=== PATIENT | female | born 1935 | race African-American/Black ===

== ENCOUNTER 2017-01-14 19:59 | Inpatient (IN) ==
[2017-01-14] MEDS ORDERED: Naloxone 0.4 MG/ML INJ IVP PRN (23:30)
--- NOTE | 2017-01-14 23:35 | Internal Med History&Physical ---
Date of Encounter: 01/14/17 Time of Encounter: 23:35 Assessment and Plan (1) Upper GI bleeding Current visit: Yes Status: Acute Suspect PUD / gastritis / esophagitis. WIll treat with IV pantoprazole. Surgical consult for possible EGD and intervention. (2) Acute blood loss anemia Current visit: Yes Status: Acute Due to Upper GI bleed. 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 Monitor H& H. (3) Diabetes Current visit: Yes Status: Chronic Sliding scale insulin Qualifiers: Diabetes mellitus type: type 2 Diabetes mellitus complication status: with kidney complications Diabetes mellitus complication detail: with chronic kidney disease Diabetes mellitus shelter insulin use: without shelter use Chronic kidney disease stage: stage 3 (moderate) Qualified Code(s): E11.22 - Type 2 diabetes mellitus with diabetic chronic kidney disease; N18.3 - Chronic kidney disease, stage 3 (moderate) (4) Hypertension Current visit: Yes Status: Chronic Continue home medications Qualifiers: Hypertension type: essential hypertension Qualified Code(s): I10 - Essential (primary) hypertension (5) Chronic kidney disease Current visit: Yes Status: Chronic Monitor renal function. Avoid nephrotoxics Qualifiers: Chronic kidney disease stage: stage 3 (moderate) Qualified Code(s): N18.3 - Chronic kidney disease, stage 3 (moderate) Internal Medicine - H&P: HPI Chief complaint: Vomiting coffee grounds; black stool Admitted From: Emergency Dept Plans for Post Hospital Care: Home History of present illness: Ms. Be is a 81 year old female With h/o diabetes, GERD, glaucoma, hyperlipidemia, hypertension, dementia, CKD, (? hiatus hernia) presented to the ER at [facility] with h/o coffee ground / dark emesis for a day. She also has black stool. She denies abdominal pain, chest pain, shortness of breath, fever, chills, dysuria, hematuria. She was evaluated in the emergency department and was noted to have hemoglobin of 9.6 (previous Hgb: 12.2 in November 2016); has elevated BUN. Pt apparently has prior h/o of GI bleed and Dr Pineda performed colonoscopy. ER physician discussed with surgeon Dr Cooper, who recommended admission to the hospitalist service. Past Med Surg Social Fam HX - Past Medical History Medical history: arthritis, diabetes, GERD, glaucoma, hyperlipidemia, hypertension, osteoporosis, renal disease Psychiatric history: no psych history - Past Surgical History Surgical History: cholecystectomy, knee replacement, orthopedic, other - Social History Smoking Status: Never smoker Smokeless Tobacco Status: No Alcohol use: none Drug use: none - Family History Daughter Adopted: No Living Status: Still Living Hx Family Cardiac Disorders: No Hx Family Respiratory Disorders: No Hx Family Cancer: No Hx Family GI Disorders: No Hx Family Endocrine Disorder: Yes (History of diet controlled diabetes after gastric bypass surgery) Hx Family Neuromuscular Disorders: No Hx Family Neurologic Disorders: No Hx Family HEENT Disorders: No Hx Family Autoimmune Disorders: No Internal Medicine - H&P: Meds Sertraline [Zoloft] 25 mg PO DAILY 05/24/15 [History] LORazepam [Ativan] 0.5 mg PO QID 12/21/15 [History] Oxybutynin [Ditropan] 5 mg PO HS 12/21/15 [History] Cholecalciferol (D-3) [Vitamin D] 50,000 unit PO QWEEK 02/25/16 [History] Latanoprost [Xalatan] 1 drop BOTH EYES HS 02/25/16 [History] Metolazone [Zaroxolyn] 5 mg PO DAILY 02/25/16 [History] Pregabalin [Lyrica] 75 mg PO BID capsule 02/25/16 [Rx] Albuterol Sulfate [Proair Respiclick] 90 mcg IH Q4H PRN 05/16/16 [History] Pantoprazole Sodium [Protonix] 40 mg PO DAILY 05/16/16 [History] Rosuvastatin Calcium [Crestor] 10 mg PO DAILY 05/16/16 [History] Ferrous Sulfate [Iron] 325 mg PO BID 07/27/16 [History] Ipratropium/Albuterol Neb [Duoneb] 3 ml IH Q6HR 07/27/16 [History] Meclizine [Antivert] 25 mg PO DAILY 07/27/16 [History] Ondansetron HCl [Zofran] 4 mg PO Q6H PRN 07/27/16 [History] Insulin Glargine,Hum.rec.anlog [Lantus Solostar] 5 unit SQ DAILY 01/14/17 [ History] Loratadine [Allergy Relief] 10 mg PO DAILY 01/14/17 [History] OxyCODONE Immed Rel [Roxicodone 5 MG] 5 mg PO Q4HR PRN 01/14/17 [History] Sennosides/Docusate Sodium [Senna-Docusate Sodium Tablet] 2 each PO DAILY PRN [History] Allergies azithromycin [From Zithromax] Allergy (Verified 12/04/16 15:18) Hives Erythromycin Base Allergy (Verified 12/04/16 15:18) Hives levofloxacin Allergy (Verified 12/04/16 15:18) See Comments UNKNOWN sulfamethoxazole [From Bactrim] Allergy (Verified 12/04/16 15:18) Hives trazodone Allergy (Verified 12/04/16 15:18) Hives trimethoprim [From Bactrim] Allergy (Verified 12/04/16 15:18) Hives tuberculin,PPD,multi-puncture Allergy (Verified 12/02/16 20:20) See Comments Pneumococcal Vaccine Adverse Reaction (Verified 12/02/16 20:20) Hallucinating All Systems PM: A 10-system review of systems was performed and is negative for pertinent findings except as documented above in the HPI. - Constitutional Vitals: Temperature 98.5, pulse 85, respirations 18, BP 151/70, pulse ox 95% on room air Exam: General: Not in acute distress at the time of my evaluation HEENT: Oral mucosa is moist. conjunctival palor present. Neck: No obvious neck swellings Lungs: Clear to auscultation Cardiac: Regular rate and rhythm. No significant murmurs Abdomen: Soft, non tender. Bowel sounds present Genitourinary: No martinez catheter Neurological: Alert. No gross localizing deficits Psych: Not aggressive or agitated Extremities: Mild leg edema Skin: No generalized rash Internal Med - H&P Results - Labs CBC & Chem 7: 01/15/17 06:30 01/15/17 06:30
[2017-01-14] MEDS ORDERED: *HR* Dextrose 50 % in Water (Syg) 50 ML SYRINGE IVP PRN (23:36)
[2017-01-14] MEDS ORDERED: Dextrose Gel 15 GM PO PRN ×2 (23:36)
[2017-01-14] MEDS ORDERED: D5% in Water 1,000 ML IVC PRN (23:36)
[2017-01-15 00:18] LABS: Hematocrit 27.6 % (35.3-44.9)
[2017-01-15] MEDS: 0.9 % Sodium Chloride 1,000 ML IVC SCH ×2 (00:32→21:07)
[2017-01-15] MEDS: Pantoprazole 40 MG VIAL IVP SCH ×3 (00:32→17:12)
[2017-01-15] MEDS ORDERED: Insulin LISPRO 300 UNITS/3 ML VIAL SQ ONE (01:34)
[2017-01-15 07:30] LABS: Hematocrit 25.6 % (35.3-44.9); Hemoglobin 8.1 g/dL (11.5-15.4); Mean Corpuscular HGB Conc 31.6 g/dL (31.6-35.5); Mean Corpuscular Hemoglobin 30.7 pg (28.0-33.3); Mean Platelet Volume 11.5 fL (9.4-12.4); Platelet Count 175 K/mcL (140-400); Red Blood Count 2.64 M/mcL (3.82-4.97); Red Cell Distribution Width 14.5 % (11.5-14.5)
[2017-01-15 07:36] LABS: Calcium 8.2 mg/dL (8.6-10.8); Magnesium 1.2 mg/dL (1.6-2.6); Potassium 3.9 mEq/L (3.5-4.5)
--- NOTE | 2017-01-15 07:45 | General Surgery Consult Note ---
Date of Encounter: 01/15/17 Time of Encounter: 07:20 Assessment and Plan (1) Upper GI bleeding Current Visit: Yes Status: Acute We will plan diagnostic and possibly therapeutic upper endoscopy later today. Keep nothing by mouth. History of Present Illness Consult date: 01/15/17 Reason for consult: other (Upper GI bleeding) History of present illness: The patient is admitted to the hospital after coffee ground emesis and evidence of acute onset anemia. She has previously had colonoscopy which was essentially negative at the end of last year. She denies abdominal pain. She denies chronic vomiting. She denies weight loss. She now presents for evaluation of upper GI bleeding with upper endoscopy. She denies shakes chills or fever Past Med Surg Social Fam HX - Past Medical History Medical history: arthritis, diabetes, GERD, glaucoma, hyperlipidemia, hypertension, osteoporosis, renal disease Psychiatric history: no psych history - Past Surgical History Surgical History: cholecystectomy, knee replacement, orthopedic, other - Social History Smoking Status: Never smoker Smokeless Tobacco Status: No Alcohol use: none Drug use: none - Family History Daughter Adopted: No Living Status: Still Living Hx Family Cardiac Disorders: No Hx Family Respiratory Disorders: No Hx Family Cancer: No Hx Family GI Disorders: No Hx Family Endocrine Disorder: Yes (History of diet controlled diabetes after gastric bypass surgery) Hx Family Neuromuscular Disorders: No Hx Family Neurologic Disorders: No Hx Family HEENT Disorders: No Hx Family Autoimmune Disorders: No Medications and Allergies Sertraline [Zoloft] 25 mg PO DAILY 05/24/15 [History] LORazepam [Ativan] 0.5 mg PO QID 12/21/15 [History] Oxybutynin [Ditropan] 5 mg PO HS 12/21/15 [History] Cholecalciferol (D-3) [Vitamin D] 50,000 unit PO QWEEK 02/25/16 [History] Latanoprost [Xalatan] 1 drop BOTH EYES HS 02/25/16 [History] Metolazone [Zaroxolyn] 5 mg PO DAILY 02/25/16 [History] Pregabalin [Lyrica] 75 mg PO BID capsule 02/25/16 [Rx] Albuterol Sulfate [Proair Respiclick] 90 mcg IH Q4H PRN 05/16/16 [History] Pantoprazole Sodium [Protonix] 40 mg PO DAILY 05/16/16 [History] Rosuvastatin Calcium [Crestor] 10 mg PO DAILY 05/16/16 [History] Ferrous Sulfate [Iron] 325 mg PO BID 07/27/16 [History] Ipratropium/Albuterol Neb [Duoneb] 3 ml IH Q6HR 07/27/16 [History] Meclizine [Antivert] 25 mg PO DAILY 07/27/16 [History] Ondansetron HCl [Zofran] 4 mg PO Q6H PRN 07/27/16 [History] Insulin Glargine,Hum.rec.anlog [Lantus Solostar] 5 unit SQ DAILY 01/14/17 [ History] Loratadine [Allergy Relief] 10 mg PO DAILY 01/14/17 [History] OxyCODONE Immed Rel [Roxicodone 5 MG] 5 mg PO Q4HR PRN 01/14/17 [History] Sennosides/Docusate Sodium [Senna-Docusate Sodium Tablet] 2 each PO DAILY PRN [History] Allergies azithromycin [From Zithromax] Allergy (Verified 12/04/16 15:18) Hives Erythromycin Base Allergy (Verified 12/04/16 15:18) Hives levofloxacin Allergy (Verified 12/04/16 15:18) See Comments UNKNOWN sulfamethoxazole [From Bactrim] Allergy (Verified 12/04/16 15:18) Hives trazodone Allergy (Verified 12/04/16 15:18) Hives trimethoprim [From Bactrim] Allergy (Verified 12/04/16 15:18) Hives tuberculin,PPD,multi-puncture Allergy (Verified 12/02/16 20:20) See Comments Pneumococcal Vaccine Adverse Reaction (Verified 12/02/16 20:20) Hallucinating Review of Systems All systems PM: A 10-system review of systems was performed and is negative for pertinent findings except as documented above in the HPI. General Surgery Exam Initial Vital Signs Temp Pulse Resp BP Pulse Ox 98.5 F 85 18 151/70 95 01/15/17 00:04 01/15/17 00:04 01/15/17 00:04 01/15/17 00:04 01/15/17 00:04 - General physical appearance obese - ENT Other (Loose dentures present) - Neck no masses, no bruits, trachea midline, no lymphadectomy, no venous distension - Respiratory normal expansion, normal respiratory effort, clear to percussion, clear to auscultation - Cardiovascular Cardiovascular exam: Present: RRR, no murmurs/rubs/gallops - Abdomen Abdomen general surgery: Present: bowel sounds present, soft, non tender - Neurologic Present: CN 2-12 grossly intact, normal coordination, normal sensation - Psychiatric Psychiatric general surgery: Present: appropriate, oriented to person, oriented to place, oriented to time, speech is normal, memory intact Exam Initial Vital Signs Temp Pulse Resp BP Pulse Ox 98.5 F 85 18 151/70 95 01/15/17 00:04 01/15/17 00:04 01/15/17 00:04 01/15/17 00:04 01/15/17 00:04 Results - Labs 01/15/17 06:30 01/15/17 06:30 Abnormal lab results RBC 2.64 M/mcL (3.82-4.97) L 01/15/17 06:30 Hgb 8.1 g/dL (11.5-15.4) L 01/15/17 06:30 Hct 25.6 % (35.3-44.9) L 01/15/17 06:30 BUN 72 mg/dL (7-20) H 01/15/17 06:30 Creatinine 1.56 mg/dL (0.57-1.11) H 01/15/17 06:30 Est GFR ( Amer) 39 (> 60) L 01/15/17 06:30 Est GFR (Non-Af Amer) 32 (> 60) L 01/15/17 06:30 BUN/Creatinine Ratio 46 (6-26) H 01/15/17 06:30 Glucose 329 mg/dL (70-99) H 01/15/17 06:30 POC Glucose 316 (58-89) H 01/15/17 05:38 Calculated Osmolality 320 (280-300) H 01/15/17 06:30 Calcium 8.2 mg/dL (8.6-10.8) L 01/15/17 06:30 Magnesium 1.2 mg/dL (1.6-2.6) L 01/15/17 06:30 Diabetes panel 01/15/17 Range/Units 06:30 Sodium 138 (136-145) mEq/L Potassium 3.9 (3.5-4.5) mEq/L Chloride 104 (98-109) mEq/L Carbon Dioxide 27 (19-29) mEq/L BUN 72 H (7-20) mg/dL Creatinine 1.56 H (0.57-1.11) mg/dL Glucose 329 H (70-99) mg/dL Calcium 8.2 L (8.6-10.8) mg/dL Calcium panel 01/15/17 Range/Units 06:30 Calcium 8.2 L (8.6-10.8) mg/dL Pituitary panel 01/15/17 Range/Units 06:30 Sodium 138 (136-145) mEq/L Potassium 3.9 (3.5-4.5) mEq/L Chloride 104 (98-109) mEq/L Carbon Dioxide 27 (19-29) mEq/L BUN 72 H (7-20) mg/dL Creatinine 1.56 H (0.57-1.11) mg/dL Glucose 329 H (70-99) mg/dL Calcium 8.2 L (8.6-10.8) mg/dL Adrenal panel 01/15/17 Range/Units 06:30 Sodium 138 (136-145) mEq/L Potassium 3.9 (3.5-4.5) mEq/L Chloride 104 (98-109) mEq/L Carbon Dioxide 27 (19-29) mEq/L BUN 72 H (7-20) mg/dL Creatinine 1.56 H (0.57-1.11) mg/dL Glucose 329 H (70-99) mg/dL Calcium 8.2 L (8.6-10.8) mg/dL All other labs normal. Consult Discharge Plan - Plan Referrals: Unassigned,Provider [Primary Care Provider] -
[2017-01-15 08:09] LABS: Hemoglobin A1C 7.2 %
[2017-01-15] MEDS: Insulin LISPRO 300 UNITS/3 ML VIAL SQ SCH ×3 (08:11→19:36)
[2017-01-15] MEDS ORDERED: *HR* FentaNYL (PF) 100 MCG/2 ML VIAL IVP PRN (09:20)
[2017-01-15] MEDS ORDERED: Simethicone 40 MG/0.6 ML MLS IR ONE (09:20)
--- NOTE | 2017-01-15 09:20 | Pre-Sedation Evaluation ---
Pre-sedation evaluation - Pre-sedation checklist Date of procedure: 01/15/17 Procedure: EGD Recent Vitals: Last Vital Signs Temp 97.6 F 01/15/17 07:42 Pulse 92 01/15/17 07:42 Resp 16 01/15/17 07:42 BP 119/64 01/15/17 07:42 Pulse Ox 93 01/15/17 07:42 H&P (including ROS) documented in medical record: Yes Previous reaction to sedatives/anesthetics: No Dietary Status: NPO after Midnight Airway Assessment: Patient can open mouth completely, TMJ function normal Dentition: dentures removed Possible difficult airway: No ASA Classification *see protocol: CLASS III-Severe systemic disease Plan of Care: Pt appropriate candidate for procedure/moderate/conscious sedation , Risks/benefits of procedure/sedation discussed w/ patient/family
[2017-01-15] MEDS ORDERED: *HR* Midazolam HCl 5 MG/5 ML VIAL IVP ONE (09:26)
[2017-01-15] MEDS ORDERED: *HR* FentaNYL (PF) 100 MCG/2 ML VIAL ONE (09:27)
[2017-01-15] MEDS: *HR* Midazolam HCl 5 MG/5 ML VIAL IVP PRN ×3 (10:18→10:28)
[2017-01-15] MEDS ORDERED: 0.9 % Sodium Chloride 250 ML ONE (12:47)
[2017-01-15] MEDS: Insulin DETEMIR 100 UNIT/ML X5UNITS SQ SCH (12:52)
[2017-01-15] MEDS: Magnesium Sulfate 2 GM in D5% in Water 100 ML IVPB SCH ×2 (12:54→14:27)
--- NOTE | 2017-01-15 14:30 | Discharge Summary ---
Date of Encounter: 01/15/17 Time of Encounter: 14:27 - Discharge Medications Home Medications: Sertraline [Zoloft] 25 mg PO DAILY 05/24/15 [History] LORazepam [Ativan] 0.5 mg PO QID 12/21/15 [History] Oxybutynin [Ditropan] 5 mg PO HS 12/21/15 [History] Cholecalciferol (D-3) [Vitamin D] 50,000 unit PO QWEEK 02/25/16 [History] Latanoprost [Xalatan] 1 drop BOTH EYES HS 02/25/16 [History] Metolazone [Zaroxolyn] 5 mg PO DAILY 02/25/16 [History] Albuterol Sulfate [Proair Respiclick] 2 puff IH Q4H PRN 05/16/16 [History] Pantoprazole Sodium [Protonix] 40 mg PO DAILY 05/16/16 [History] Rosuvastatin Calcium [Crestor] 10 mg PO DAILY 05/16/16 [History] Ferrous Sulfate [Iron] 325 mg PO BID 07/27/16 [History] Ipratropium/Albuterol Neb [Duoneb] 3 ml IH Q6HR 07/27/16 [History] Meclizine [Antivert] 25 mg PO DAILY 07/27/16 [History] Ondansetron HCl [Zofran] 4 mg PO Q6H PRN 07/27/16 [History] Insulin Glargine,Hum.rec.anlog [Lantus Solostar] 5 unit SQ DAILY 01/14/17 [ History] Loratadine [Allergy Relief] 10 mg PO DAILY 01/14/17 [History] OxyCODONE Immed Rel [Roxicodone 5 MG] 5 mg PO Q4HR PRN 01/14/17 [History] Sennosides/Docusate Sodium [Senna-Docusate Sodium Tablet] 2 each PO DAILY PRN [History] Allergies/Adverse Reactions: Allergies azithromycin [From Zithromax] Allergy (Verified 12/04/16 15:18) Hives Erythromycin Base Allergy (Verified 12/04/16 15:18) Hives levofloxacin Allergy (Verified 12/04/16 15:18) See Comments UNKNOWN sulfamethoxazole [From Bactrim] Allergy (Verified 12/04/16 15:18) Hives trazodone Allergy (Verified 12/04/16 15:18) Hives trimethoprim [From Bactrim] Allergy (Verified 12/04/16 15:18) Hives tuberculin,PPD,multi-puncture Allergy (Verified 12/02/16 20:20) See Comments Pneumococcal Vaccine Adverse Reaction (Verified 12/02/16 20:20) Hallucinating Date of admission: 01/15/17 02:22 Primary care physician: Provider Unassigned Consults: 01/14/17 23:33 Consult to Surgery [CONS] Routine Consulting Provider: [facility] Reason for Consult: Upper GI bleed Call Completed: No 01/15/17 11:48 Consult to Physical Therapy [CONS] Routine Comment: Evaluate, develop and implement POC Reason for Consult: Evaluate OT [Consult to Occupational Therapy] [CONS] Routine Comment: Evaluate, develop and implement POC Reason for Consult: evaluate - Discharge Instructions Follow Up With: Unassigned,Provider [Primary Care Provider] - Hospital course: Ms. Be is a 81 year old female - Time Spent with Patient Total time spent providing and/or coordinating discharge services: - Constitutional Vitals: Temp Pulse Resp BP Pulse Ox 98.1 F 89 18 128/77 94 01/15/17 10:50 01/15/17 10:50 01/15/17 10:50 01/15/17 10:50 01/15/17 11:07
--- NOTE | 2017-01-15 14:32 | Internal Med Progress Note ---
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 Chronic kidney disease stage: stage 3 (moderate) Qualified Code(s): E11.22 - Type 2 diabetes mellitus with diabetic chronic kidney disease; N18.3 - Chronic kidney disease, stage 3 (moderate) (2) Hypertension Current Visit: Yes Status: Chronic Qualifiers: Hypertension type: essential hypertension Qualified Code(s): I10 - Essential (primary) hypertension (3) Chronic kidney disease Current Visit: Yes Status: Chronic Qualifiers: Chronic kidney disease stage: stage 3 (moderate) Qualified Code(s): N18.3 - Chronic kidney disease, stage 3 (moderate) (4) Upper GI bleeding Current Visit: Yes Status: Acute - Subjective Interval history: krysten Be is an 81-year-old female presented with upper GI bleed. Dr. Cooper was consulted. He plans to do EGD today. Patient magnesium was low and it is corrected. Creatinine slightly elevated and repeat BMP tomorrow. H&H every 6. Patient is hemo-dynamically stable. - Constitutional Vitals: Temp Pulse Resp BP Pulse Ox 98.1 F 89 18 128/77 94 01/15/17 10:50 01/15/17 10:50 01/15/17 10:50 01/15/17 10:50 01/15/17 11:07 - Head Head exam: Present: atraumatic, normocephalic - Eye Eye exam: Present: PERRL, conjuntiva pink, sclera anicteric Pupils: Present: PERRL - Neck Neck exam general surgery: Present: supple, trachea midline. Absent: lymphadenopathy - Respiratory Respiratory exam: Present: CTAB. Absent: accessory muscle use, rales, rhonchi, wheezes - Cardiovascular Cardiovascular exam: Present: RRR, +S1, +S2. Absent: diastolic murmur, gallop, rubs, systolic murmur - GI/Abdominal GI/Abdominal exam: Present: normal bowel sounds, soft, no peritoneal signs. Absent: distended, tenderness - Extremities Exam Extremities exam: Present: warm, radial pulses palpable and symetrical. Absent : calf tenderness, cyanotic, pedal edema - Neurological Exam Neurological exam: Present: CN II-XII intact, oriented X3, no focal deficits. Absent: pronater drift, facial droop, speech deficit - Skin Skin exam: Present: dry, intact Internal Medicine: Result - Labs CBC & Chem 7: 01/15/17 08:42 01/15/17 06:30 Labs: Short CBC 01/15/17 01/15/17 01/15/17 Range/Units 00:07 06:30 08:42 WBC 7.0 (4.3-11.1) K/mcL Hgb 9.0 L 8.1 L 8.0 L (11.5-15.4) g/dL Hct 27.6 L 25.6 L 25.0 L (35.3-44.9) % Plt Count 175 (140-400) K/mcL [facility] 01/15/17 06:30 Sodium 138 Potassium 3.9 Chloride 104 Carbon Dioxide 27 BUN 72 H Creatinine 1.56 H Glucose 329 H Calcium 8.2 L Consult Discharge Plan - Plan Referrals: Unassigned,Provider [Primary Care Provider] -
[2017-01-16] MEDS: Insulin LISPRO 300 UNITS/3 ML VIAL SQ SCH ×5 (00:53→20:10)
[2017-01-16 01:35] LABS: Basophils % 0.4 %; Eosinophils # 0.1 K/mcL (0.0-0.6); Eosinophils % 1.9 %; Hematocrit 26.9 % (35.3-44.9); Hemoglobin 8.8 g/dL (11.5-15.4); Immature Granulocytes % 0.4 % (0-4); Lymphocytes # 1.5 K/mcL (0.6-4.6); Lymphocytes % 22.3 %; Mean Corpuscular HGB Conc 32.7 g/dL (31.6-35.5); Mean Corpuscular Hemoglobin 31.1 pg (28.0-33.3); Mean Corpuscular Volume 95.1 fL (83.0-100.0); Mean Platelet Volume 11.2 fL (9.4-12.4); Monocytes # 0.6 K/mcL (0.0-1.3); Monocytes % 9.2 %; Neutrophils # 4.4 K/mcL (1.6-8.9); Platelet Count 156 K/mcL (140-400); Red Blood Count 2.83 M/mcL (3.82-4.97); Red Cell Distribution Width 16.5 % (11.5-14.5); Segmented Neutrophils % 65.8 %
[2017-01-16 01:52] LABS: Calcium 8.4 mg/dL (8.6-10.8); Magnesium 2.3 mg/dL (1.6-2.6); Potassium 3.5 mEq/L (3.5-4.5)
[2017-01-16] MEDS: Pantoprazole 40 MG VIAL IVP SCH ×2 (06:14→18:10)
[2017-01-16 07:27] LABS: Hematocrit 25.2 % (35.3-44.9); Hemoglobin 8.6 g/dL (11.5-15.4)
[2017-01-16] MEDS: Insulin DETEMIR 100 UNIT/ML X5UNITS SQ SCH (08:32)
[2017-01-16 11:19] LABS: Bilirubin,Urine Negative (Negative); Blood,Urine Large (Negative); Clarity,Urine Cloudy (Clear); Color,Urine Yellow (Yellow); Glucose,Urine (UA) Normal (Normal); Ketones,Urine Negative (Negative); Leukocyte Esterase,Urine Large (Negative); Nitrite,Urine Positive (Negative); Protein,Urine Negative (Neg-Trace); Specific Gravity,Urine 1.017 (1.010-1.025); Urobilinogen,Urine Normal (Normal)
[2017-01-16 11:21] LABS: Bacteria,Urine Many per hpf (None-Few); Hyaline Casts,Urine None Seen per lpf (None-Few); Squamous Epithelial Cell,Urine Many per lpf (None-Few); WBC,Urine TNTC per hpf (0-3)
[2017-01-16] MEDS ORDERED: Fluconazole 40 MG/ML UDC PO SCH (12:15)
[2017-01-16] MEDS: *HR* LORazepam 0.5 MG TABLET PO SCH ×3 (12:36→20:43)
--- NOTE | 2017-01-16 14:33 | General Surgery Progress Note ---
Date of Encounter: 01/16/17 Time of Encounter: 14:29 - Assessment and Plan (1) Esophageal candidiasis Current Visit: Yes Status: Acute Diflucan added daily- first dose given today (will need to continue therapy for at least 3 weeks) Continue PPI therapy twice daily Biopsies pending Surgery will sign off at this time. Thank you for allowing us to participate in her care. Please call with any further questions or concerns Subjective Patient reports: no new complaints, feels better, tolerating liquids well, afebrile, other (Patient sitting on the edge of the bed, states that she is ready to go home) Objective Vital Signs - Last 8 Hours Temp Pulse Resp BP Pulse Ox 01/16/17 08:26 98.6 F 62 17 126/75 95 Intake and Output 01/15/17 01/16/17 01/16/17 23:59 07:59 15:59 Intake Total 1350 / 1350 342 / 342 296 / 296 Output Total 0 / 0 Balance 1350 / 1350 342 / 342 296 / 296 Intake: IV Fluids 1000 / 1000 342 / 342 176 / 176 0.9 % Sodium Chloride 1, 1000 / 1000 342 / 342 176 / 176 000 ML @ 75 mls/hr IVC . [id number] JOHANNY Rx#: [id number] Oral 0 / 0 120 / 120 Blood Product 350 / 350 Rbcs Leuko Poor As-1 350 / 350 Unit [id number] Output: Urine 0 / 0 Other: Stool Size Large Stool Consistency loose soft Stool Color Black # Urine Diapers 2 # Bowel Movement Diapers 1 Blood Glucose* 131 162 162 - General physical appearance well developed, well nourished, no distress - Eyes normal ocular movement - ENT atraumatic, normocephalic - Neck Neck exam: trachea midline - Respiratory normal respiratory effort - Psychiatric oriented to person, oriented to place, speech is normal - Labs 01/16/17 07:08 01/16/17 00:37 Diabetes panel 01/16/17 Range/Units 00:37 Sodium 140 (136-145) mEq/L Potassium 3.5 (3.5-4.5) mEq/L Chloride 107 (98-109) mEq/L Carbon Dioxide 27 (19-29) mEq/L BUN 61 H (7-20) mg/dL Creatinine 1.41 H (0.57-1.11) mg/dL Glucose 127 H (70-99) mg/dL Calcium 8.4 L (8.6-10.8) mg/dL Calcium panel 01/16/17 Range/Units 00:37 Calcium 8.4 L (8.6-10.8) mg/dL Pituitary panel 01/16/17 Range/Units 00:37 Sodium 140 (136-145) mEq/L Potassium 3.5 (3.5-4.5) mEq/L Chloride 107 (98-109) mEq/L Carbon Dioxide 27 (19-29) mEq/L BUN 61 H (7-20) mg/dL Creatinine 1.41 H (0.57-1.11) mg/dL Glucose 127 H (70-99) mg/dL Calcium 8.4 L (8.6-10.8) mg/dL Adrenal panel 01/16/17 Range/Units 00:37 Sodium 140 (136-145) mEq/L Potassium 3.5 (3.5-4.5) mEq/L Chloride 107 (98-109) mEq/L Carbon Dioxide 27 (19-29) mEq/L BUN 61 H (7-20) mg/dL Creatinine 1.41 H (0.57-1.11) mg/dL Glucose 127 H (70-99) mg/dL Calcium 8.4 L (8.6-10.8) mg/dL Consult Discharge Plan - Plan Referrals: Alvarado Dias CNP [Advanced Practice Nurse] - 01/23/17 4:15 pm (Home Visit )
--- NOTE | 2017-01-16 15:16 | Internal Med Progress Note ---
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 Chronic kidney disease stage: stage 3 (moderate) Qualified Code(s): E11.22 - Type 2 diabetes mellitus with diabetic chronic kidney disease; N18.3 - Chronic kidney disease, stage 3 (moderate) (2) Hypertension Current Visit: Yes Status: Chronic Qualifiers: Hypertension type: essential hypertension Qualified Code(s): I10 - Essential (primary) hypertension (3) Chronic kidney disease Current Visit: Yes Status: Chronic Qualifiers: Chronic kidney disease stage: stage 3 (moderate) Qualified Code(s): N18.3 - Chronic kidney disease, stage 3 (moderate) (4) Upper GI bleeding Current Visit: Yes Status: Acute - Subjective Interval history: krysten Be is an 81-year-old female presented with upper GI bleed. Dr. Cooper was consulted. He plans to do EGD today. Patient magnesium was low and it is corrected. Creatinine slightly elevated and repeat BMP tomorrow. H&H every 6. Patient is hemo-dynamically stable. - Constitutional Vitals: Temp Pulse Resp BP Pulse Ox 98.7 F 74 17 137/72 96 01/16/17 15:08 01/16/17 15:08 01/16/17 15:08 01/16/17 15:08 01/16/17 15:08 Internal Medicine: Result - Labs CBC & Chem 7: 01/16/17 07:08 01/16/17 00:37 Labs: Short CBC 01/16/17 01/16/17 Range/Units 00:37 07:08 WBC 6.7 (4.3-11.1) K/mcL Hgb 8.8 L 8.6 L (11.5-15.4) g/dL Hct 26.9 L 25.2 L (35.3-44.9) % Plt Count 156 (140-400) K/mcL Neutrophils # 4.4 (1.6-8.9) K/mcL BMP 01/16/17 00:37 Sodium 140 Potassium 3.5 Chloride 107 Carbon Dioxide 27 BUN 61 H Creatinine 1.41 H Glucose 127 H Calcium 8.4 L Urine 01/16/17 Range/Units 11:05 Urine Color Yellow (Yellow) Urine Clarity Cloudy A (Clear) Urine pH 6.0 (5.0-8.0) pH Units Ur Specific [place] 1.017 (1.010-1.025) Urine Protein Negative (Neg-Trace) mg/dL Urine Glucose (UA) Normal (Normal) mg/dL Consult Discharge Plan - Plan Referrals: Alvarado Dias CNP [Advanced Practice Nurse] - 01/23/17 4:15 pm (Home Visit )
--- NOTE | 2017-01-16 15:28 | Internal Med Progress Note ---
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 mcc use Chronic kidney disease stage: stage 3 (moderate) Qualified Code(s): E11.22 - Type 2 diabetes mellitus with diabetic chronic kidney disease; N18.3 - Chronic kidney disease, stage 3 (moderate) (2) Hypertension Current Visit: Yes Status: Chronic Qualifiers: Hypertension type: essential hypertension Qualified Code(s): I10 - Essential (primary) hypertension (3) Chronic kidney disease Current Visit: Yes Status: Chronic Qualifiers: Chronic kidney disease stage: stage 3 (moderate) Qualified Code(s): N18.3 - Chronic kidney disease, stage 3 (moderate) (4) Upper GI bleeding Current Visit: Yes Status: Acute (5) Esophageal candidiasis Current Visit: Yes Status: Acute Assessment and plan: Diflucan. 14-21 days started with IV so that swallowing can improve and then switched to oral. - Subjective Interval history: krysten Be is an 81-year-old female presented with upper GI bleed. Dr. Cooper was consulted. EGD was done which showed distal esophagus esophagitis. Biopsy has turned out to be fungal esophagitis.. Start IV Diflucan and plan to treat it for 21 days. Oral Diflucan Patient magnesium was low and it is corrected. Creatinine slightly elevated and repeat BMP tomorrow. H&H every 6. Patient is hemo-dynamically stable. - Constitutional Vitals: Temp Pulse Resp BP Pulse Ox 98.7 F 74 17 137/72 96 01/16/17 15:08 01/16/17 15:08 01/16/17 15:08 01/16/17 15:08 01/16/17 15:08 - Head Head exam: Present: atraumatic, normocephalic - Eye Eye exam: Present: PERRL, conjuntiva pink, sclera anicteric Pupils: Present: PERRL - Neck Neck exam general surgery: Present: supple, trachea midline. Absent: lymphadenopathy - Respiratory Respiratory exam: Present: CTAB. Absent: accessory muscle use, rales, rhonchi, wheezes - Cardiovascular Cardiovascular exam: Present: RRR, +S1, +S2. Absent: diastolic murmur, gallop, rubs, systolic murmur - GI/Abdominal GI/Abdominal exam: Present: normal bowel sounds, soft, no peritoneal signs. Absent: distended, tenderness - Extremities Exam Extremities exam: Present: warm, radial pulses palpable and symetrical. Absent : calf tenderness, cyanotic, pedal edema - Neurological Exam Neurological exam: Present: CN II-XII intact, oriented X3, no focal deficits. Absent: pronater drift, facial droop, speech deficit - Skin Skin exam: Present: dry, intact Internal Medicine: Result - Labs CBC & Chem 7: 01/16/17 07:08 01/16/17 00:37 Labs: Short CBC 01/16/17 01/16/17 Range/Units 00:37 07:08 WBC 6.7 (4.3-11.1) K/mcL Hgb 8.8 L 8.6 L (11.5-15.4) g/dL Hct 26.9 L 25.2 L (35.3-44.9) % Plt Count 156 (140-400) K/mcL Neutrophils # 4.4 (1.6-8.9) K/mcL BMP 01/16/17 00:37 Sodium 140 Potassium 3.5 Chloride 107 Carbon Dioxide 27 BUN 61 H Creatinine 1.41 H Glucose 127 H Calcium 8.4 L Urine 01/16/17 Range/Units 11:05 Urine Color Yellow (Yellow) Urine Clarity Cloudy A (Clear) Urine pH 6.0 (5.0-8.0) pH Units Ur Specific [place] 1.017 (1.010-1.025) Urine Protein Negative (Neg-Trace) mg/dL Urine Glucose (UA) Normal (Normal) mg/dL Consult Discharge Plan - Plan Referrals: Alvarado Dias CNP [Advanced Practice Nurse] - 01/23/17 4:15 pm (Home Visit )
[2017-01-16 16:15] LABS: Hemoglobin 9.3 g/dL (11.5-15.4)
[2017-01-16] MEDS: 0.9 % Sodium Chloride 1,000 ML IVC SCH (19:51)
[2017-01-16 22:38] LABS: Hematocrit 24.5 % (35.3-44.9); Hemoglobin 8.2 g/dL (11.5-15.4)
[2017-01-17 04:30] LABS: Basophils % 0.6 %; Eosinophils # 0.3 K/mcL (0.0-0.6); Eosinophils % 4.6 %; Hematocrit 25.3 % (35.3-44.9); Hemoglobin 8.3 g/dL (11.5-15.4); Immature Granulocytes % 0.2 % (0-4); Lymphocytes # 1.7 K/mcL (0.6-4.6); Lymphocytes % 30.6 %; Mean Corpuscular HGB Conc 32.8 g/dL (31.6-35.5); Mean Corpuscular Hemoglobin 30.7 pg (28.0-33.3); Mean Corpuscular Volume 93.7 fL (83.0-100.0); Mean Platelet Volume 11.4 fL (9.4-12.4); Monocytes # 0.6 K/mcL (0.0-1.3); Monocytes % 10.6 %; Neutrophils # 2.9 K/mcL (1.6-8.9); Platelet Count 152 K/mcL (140-400); Red Cell Distribution Width 15.8 % (11.5-14.5); Segmented Neutrophils % 53.4 %
[2017-01-17 04:46] LABS: Calcium 8.2 mg/dL (8.6-10.8); Magnesium 1.7 mg/dL (1.6-2.6); Potassium 3.3 mEq/L (3.5-4.5)
[2017-01-17] MEDS: Pantoprazole 40 MG VIAL IVP SCH (05:44)
[2017-01-17] MEDS ORDERED: Potassium Chloride Elixir 20 MEQ/15 ML UDC PO STA (07:56)
--- NOTE | 2017-01-17 08:01 | Discharge Summary ---
Date of Encounter: 01/17/17 Time of Encounter: 07:58 - Discharge Diagnosis (1) Diabetes Priority: Secondary Status: Chronic Qualifiers: Diabetes mellitus type: type 2 Diabetes mellitus complication status: with kidney complications Diabetes mellitus complication detail: with chronic kidney disease Diabetes mellitus intermediate card tender insulin use: without intermediate card tender use Chronic kidney disease stage: stage 3 (moderate) Qualified Code(s): E11.22 - Type 2 diabetes mellitus with diabetic chronic kidney disease; N18.3 - Chronic kidney disease, stage 3 (moderate) (2) Hypertension Priority: Secondary Status: Chronic Qualifiers: Hypertension type: essential hypertension Qualified Code(s): I10 - Essential (primary) hypertension (3) Chronic kidney disease Priority: Secondary Status: Chronic Qualifiers: Chronic kidney disease stage: stage 3 (moderate) Qualified Code(s): N18.3 - Chronic kidney disease, stage 3 (moderate) (4) Upper GI bleeding Priority: Primary Status: Acute (5) Esophageal candidiasis Priority: Primary Status: Acute (6) Hypokalemia Priority: Secondary Status: Acute - Discharge Medications Prescriptions: Fluconazole [Diflucan] 100 mg PO DAILY 21 Days Furosemide [Lasix] 20 mg PO DAILY #30 tablet Pantoprazole Sodium [Protonix] 40 mg PO BID #60 tablet.dr Home Medications: Sertraline [Zoloft] 25 mg PO DAILY 05/24/15 [History] LORazepam [Ativan] 0.5 mg PO QID 12/21/15 [History] Oxybutynin [Ditropan] 5 mg PO HS 12/21/15 [History] Cholecalciferol (D-3) [Vitamin D] 50,000 unit PO QWEEK 02/25/16 [History] Latanoprost [Xalatan] 1 drop BOTH EYES HS 02/25/16 [History] Albuterol Sulfate [Proair Respiclick] 2 puff IH Q4H PRN 05/16/16 [History] Rosuvastatin Calcium [Crestor] 10 mg PO DAILY 05/16/16 [History] Ferrous Sulfate [Iron] 325 mg PO BID 07/27/16 [History] Ipratropium/Albuterol Neb [Duoneb] 3 ml IH Q6HR 07/27/16 [History] Meclizine [Antivert] 25 mg PO DAILY 07/27/16 [History] Ondansetron HCl [Zofran] 4 mg PO Q6H PRN 07/27/16 [History] Insulin Glargine,Hum.rec.anlog [Lantus Solostar] 5 unit SQ DAILY 01/14/17 [ History] Loratadine [Allergy Relief] 10 mg PO DAILY 01/14/17 [History] OxyCODONE Immed Rel [Roxicodone 5 MG] 5 mg PO Q4HR PRN 01/14/17 [History] Sennosides/Docusate Sodium [Senna-Docusate Sodium Tablet] 2 each PO DAILY PRN [History] Fluconazole [Diflucan] 100 mg PO DAILY 21 Days 01/17/17 [Rx] Furosemide [Lasix] 20 mg PO DAILY #30 tablet 01/17/17 [Rx] Pantoprazole Sodium [Protonix] 40 mg PO BID #60 tablet. 01/17/17 [Rx] Allergies/Adverse Reactions: Allergies azithromycin [From Zithromax] Allergy (Verified 12/04/16 15:18) Hives Erythromycin Base Allergy (Verified 12/04/16 15:18) Hives levofloxacin Allergy (Verified 12/04/16 15:18) See Comments UNKNOWN sulfamethoxazole [From Bactrim] Allergy (Verified 12/04/16 15:18) Hives trazodone Allergy (Verified 12/04/16 15:18) Hives trimethoprim [From Bactrim] Allergy (Verified 12/04/16 15:18) Hives tuberculin,PPD,multi-puncture Allergy (Verified 12/02/16 20:20) See Comments Pneumococcal Vaccine Adverse Reaction (Verified 12/02/16 20:20) Hallucinating Date of admission: 01/15/17 02:22 Primary care physician: Provider Unassigned Consults: 01/14/17 23:33 Consult to Surgery [CONS] Routine Consulting Provider: [facility] Reason for Consult: Upper GI bleed Call Completed: No 01/15/17 11:48 Consult to Physical Therapy [CONS] Routine Comment: Evaluate, develop and implement POC Reason for Consult: Evaluate OT [Consult to Occupational Therapy] [CONS] Routine Comment: Evaluate, develop and implement POC Reason for Consult: evaluate Discharging clinician: Carlos Manuel Caceres Anticipated date of discharge: 01/17/17 - Patient Status Disposition: Home, Self-Care Condition: Fair Overall status at discharge: patient is progressing back to baseline - Discharge Instructions Follow Up With: Alvarado Dias CNP [Advanced Practice Nurse] - 01/23/17 4:15 pm (Home Visit ) - Diet and Activity Activity: increase activity as tolerated Diet: advance to your usual diet, diabetic diet, low fat, low cholesterol, low salt diet Interval History: Keshia Be is an 81-year-old female presented with upper GI bleed. Dr. Cooper was consulted. EGD was done which showed distal esophagus esophagitis. Biopsy has turned out to be fungal esophagitis..IV Diflucan started and plan to treat it for 21 days with by mouth Diflucan..Patient magnesium and potassium were low and they are corrected. She has a stage III chronic kidney disease however with the gentle IV hydration creatinine has improved. Patient was recommended to go to custodial at assisted level however family refuses to take a custodial and will bother take her home. They are advised to contact their family physician in case if they changed her mind otherwise patient should follow with family doctor next week. Hospital course: Ms. Be is a 81 year old female - Time Spent with Patient Total time spent providing and/or coordinating discharge services: Greater than 30 minutes - Constitutional Vitals: Temp Pulse Resp BP Pulse Ox 98.1 F 70 18 144/64 94 01/17/17 06:30 01/17/17 06:30 01/17/17 06:30 01/17/17 06:30 01/17/17 06:30 General appearance: Present: A&O X 3, pleasant, no acute distress, obese - Head Head exam: Present: atraumatic, normocephalic - Eye Eye exam: Present: PERRL, conjuntiva pink, sclera anicteric Pupils: Present: PERRL - Neck Neck exam general surgery: Present: supple, trachea midline. Absent: lymphadenopathy - Respiratory Respiratory exam: Present: CTAB. Absent: accessory muscle use, rales, rhonchi, wheezes - Cardiovascular Cardiovascular exam: Present: RRR, +S1, +S2. Absent: diastolic murmur, gallop, rubs, systolic murmur - GI/Abdominal GI/Abdominal exam: Present: normal bowel sounds, soft, no peritoneal signs. Absent: distended, tenderness - Extremities Exam Extremities exam: Present: warm, radial pulses palpable and symetrical. Absent : calf tenderness, cyanotic, pedal edema - Neurological Exam Neurological exam: Present: CN II-XII intact, oriented X3, no focal deficits. Absent: pronater drift, facial droop, speech deficit Additional comments: Essentially bedridden but able to move her extremities - Skin Skin exam: Present: dry, intact - VTE Documentation of Mechanical Device: Intermittent pneumatic compression device
[2017-01-17] MEDS: Insulin LISPRO 300 UNITS/3 ML VIAL SQ SCH ×2 (08:17→11:52)
[2017-01-17] MEDS: Insulin DETEMIR 100 UNIT/ML X5UNITS SQ SCH (08:28)
[2017-01-17] MEDS: *HR* LORazepam 0.5 MG TABLET PO SCH (08:31)
[2017-01-17] MEDS ORDERED: metOLazone 5 MG TABLET PO SCH (09:00)
[2017-01-17] MEDS ORDERED: Fluconazole 200 MG/100 ML 200 MG/100 ML BAG IVPB SCH (09:00)
[2017-01-17 10:27] VITALS: BP 117/72
--- NOTE | 2017-01-17 10:31 | Physician Discharge Referral ---
Home Health/Hosp Referral Info Transfer to: Home Health Attending Provider: julio cesar Provider in Charge Post Discharge: PCP - Diagnosis (1) Diabetes Status: Chronic (2) Hypertension Status: Chronic (3) Chronic kidney disease Status: Chronic (4) Upper GI bleeding Status: Acute (5) Esophageal candidiasis Status: Acute (6) Hypokalemia Status: Acute - Respiratory Orders Smoking Cessation: Smoking cessation has been advised. For more information, call the [place] Tobacco Quit Line at 5-807-KGKL-NOW. - Transfer Medications Prescriptions: Fluconazole [Diflucan] 100 mg PO DAILY 21 Days Furosemide [Lasix] 20 mg PO DAILY #30 tablet Pantoprazole Sodium [Protonix] 40 mg PO BID #60 tablet.dr Home Medications: Sertraline [Zoloft] 25 mg PO DAILY 05/24/15 [History] LORazepam [Ativan] 0.5 mg PO QID 12/21/15 [History] Oxybutynin [Ditropan] 5 mg PO HS 12/21/15 [History] Cholecalciferol (D-3) [Vitamin D] 50,000 unit PO QWEEK 02/25/16 [History] Latanoprost [Xalatan] 1 drop BOTH EYES HS 02/25/16 [History] Albuterol Sulfate [Proair Respiclick] 2 puff IH Q4H PRN 05/16/16 [History] Rosuvastatin Calcium [Crestor] 10 mg PO DAILY 05/16/16 [History] Ferrous Sulfate [Iron] 325 mg PO BID 07/27/16 [History] Ipratropium/Albuterol Neb [Duoneb] 3 ml IH Q6HR 07/27/16 [History] Meclizine [Antivert] 25 mg PO DAILY 07/27/16 [History] Ondansetron HCl [Zofran] 4 mg PO Q6H PRN 07/27/16 [History] Insulin Glargine,Hum.rec.anlog [Lantus Solostar] 5 unit SQ DAILY 01/14/17 [ History] Loratadine [Allergy Relief] 10 mg PO DAILY 01/14/17 [History] OxyCODONE Immed Rel [Roxicodone 5 MG] 5 mg PO Q4HR PRN 01/14/17 [History] Sennosides/Docusate Sodium [Senna-Docusate Sodium Tablet] 2 each PO DAILY PRN [History] Fluconazole [Diflucan] 100 mg PO DAILY 21 Days 01/17/17 [Rx] Furosemide [Lasix] 20 mg PO DAILY #30 tablet 01/17/17 [Rx] Pantoprazole Sodium [Protonix] 40 mg PO BID #60 tablet. 01/17/17 [Rx] Allergies/Adverse Reactions: Allergies azithromycin [From Zithromax] Allergy (Verified 12/04/16 15:18) Hives Erythromycin Base Allergy (Verified 12/04/16 15:18) Hives levofloxacin Allergy (Verified 12/04/16 15:18) See Comments UNKNOWN sulfamethoxazole [From Bactrim] Allergy (Verified 12/04/16 15:18) Hives trazodone Allergy (Verified 12/04/16 15:18) Hives trimethoprim [From Bactrim] Allergy (Verified 12/04/16 15:18) Hives tuberculin,PPD,multi-puncture Allergy (Verified 12/02/16 20:20) See Comments Pneumococcal Vaccine Adverse Reaction (Verified 12/02/16 20:20) Hallucinating Certification: Further, I certify that my clinical findings support that this patient is homebound (i.e. absences from home require considerable and taxing effort and are for medical reasons or evangelical services or infrequently or short duration when for other reasons) because: Homebound Reason: Patient requires assistance of a person or device to safely leave home, Leaving home requires considerable and taxing effort due to condition Attestation: My signature below is to certify that this patient is under my care and that I, or nurse practitioner, or a physician's medical assistant secretary working with me, has a face-to -face encounter with this patient.
--- NOTE | 2017-01-17 11:53 | Physician Discharge Referral ---
Home Health/Hosp Referral Info Transfer to: Home Health (Patient needs outpatient PTOT evaluation and treatment and an need detention. For her medication and evaluation.) Attending Provider: julio cesar Provider in Charge Post Discharge: PCP - Diagnosis (1) Diabetes Status: Chronic (2) Hypertension Status: Chronic (3) Chronic kidney disease Status: Chronic (4) Upper GI bleeding Status: Acute (5) Esophageal candidiasis Status: Acute (6) Hypokalemia Status: Acute - Respiratory Orders Smoking Cessation: Smoking cessation has been advised. For more information, call the [place] Tobacco Quit Line at 3-167-MGEI-NOW. - Transfer Medications Prescriptions: Fluconazole [Diflucan] 100 mg PO DAILY 21 Days Furosemide [Lasix] 20 mg PO DAILY #30 tablet Pantoprazole Sodium [Protonix] 40 mg PO BID #60 tablet.dr Home Medications: Sertraline [Zoloft] 25 mg PO DAILY 05/24/15 [History] LORazepam [Ativan] 0.5 mg PO QID 12/21/15 [History] Oxybutynin [Ditropan] 5 mg PO HS 12/21/15 [History] Cholecalciferol (D-3) [Vitamin D] 50,000 unit PO QWEEK 02/25/16 [History] Latanoprost [Xalatan] 1 drop BOTH EYES HS 02/25/16 [History] Albuterol Sulfate [Proair Respiclick] 2 puff IH Q4H PRN 05/16/16 [History] Rosuvastatin Calcium [Crestor] 10 mg PO DAILY 05/16/16 [History] Ferrous Sulfate [Iron] 325 mg PO BID 07/27/16 [History] Ipratropium/Albuterol Neb [Duoneb] 3 ml IH Q6HR 07/27/16 [History] Meclizine [Antivert] 25 mg PO DAILY 07/27/16 [History] Ondansetron HCl [Zofran] 4 mg PO Q6H PRN 07/27/16 [History] Insulin Glargine,Hum.rec.anlog [Lantus Solostar] 5 unit SQ DAILY 01/14/17 [ History] Loratadine [Allergy Relief] 10 mg PO DAILY 01/14/17 [History] OxyCODONE Immed Rel [Roxicodone 5 MG] 5 mg PO Q4HR PRN 01/14/17 [History] Sennosides/Docusate Sodium [Senna-Docusate Sodium Tablet] 2 each PO DAILY PRN [History] Fluconazole [Diflucan] 100 mg PO DAILY 21 Days 01/17/17 [Rx] Furosemide [Lasix] 20 mg PO DAILY #30 tablet 01/17/17 [Rx] Pantoprazole Sodium [Protonix] 40 mg PO BID #60 tablet. 01/17/17 [Rx] Allergies/Adverse Reactions: Allergies azithromycin [From Zithromax] Allergy (Verified 12/04/16 15:18) Hives Erythromycin Base Allergy (Verified 12/04/16 15:18) Hives levofloxacin Allergy (Verified 12/04/16 15:18) See Comments UNKNOWN sulfamethoxazole [From Bactrim] Allergy (Verified 12/04/16 15:18) Hives trazodone Allergy (Verified 12/04/16 15:18) Hives trimethoprim [From Bactrim] Allergy (Verified 12/04/16 15:18) Hives tuberculin,PPD,multi-puncture Allergy (Verified 12/02/16 20:20) See Comments Pneumococcal Vaccine Adverse Reaction (Verified 12/02/16 20:20) Hallucinating Certification: Further, I certify that my clinical findings support that this patient is homebound (i.e. absences from home require considerable and taxing effort and are for medical reasons or lutheran services or infrequently or short duration when for other reasons) because: Homebound Reason: Patient requires assistance of a person or device to safely leave home Attestation: My signature below is to certify that this patient is under my care and that I, or nurse practitioner, or a physician's conservation assistant working with me, has a face-to -face encounter with this patient.
== END 2017-01-17 12:14 | disposition home health service (06) | DRG 378 ==
LOC: 3ANU
PROVIDERS: ADMIT Internal Medicine; ATTEND Internal Medicine
PROC: ENDOORB (2017-01-15 15:00)

== ENCOUNTER 2017-04-15 19:30 | Inpatient (IN) ==
[2017-04-15] MEDS ORDERED: Dextrose Gel 15 GM PO PRN ×2 (22:58)
[2017-04-15] MEDS ORDERED: D5% in Water 1,000 ML IVC PRN (22:58)
[2017-04-15] MEDS ORDERED: Ondansetron 4 MG/2 ML VIAL IVP PRN (22:58)
[2017-04-15] MEDS ORDERED: *HR* Dextrose 50 % in Water (Syg) 50 ML SYRINGE IVP PRN (22:58)
[2017-04-15] MEDS ORDERED: Pantoprazole 40 MG VIAL IVP ONE (22:58)
[2017-04-15] MEDS ORDERED: Pantoprazole 80 MG in 0.9 % Sodium Chloride 50 ML IVPB ONE (23:15)
--- NOTE | 2017-04-15 23:20 | Internal Med History&Physical ---
<Angel Lott - Last Filed: 04/15/17 23:20> Date of Encounter: 04/15/17 Time of Encounter: 23:20 Assessment and Plan (1) Severe anemia Current visit: Yes Status: Acute HGB 3.5 on admission. BP stable. Continue to monitor vital signs, two large bore IVs in place. Transfuse 4 units PRBC Anemia work-up pending Monitor serial H&H q6h. Transfuse additional blood products as needed (2) GI bleed Current visit: No Status: Acute HGB 3.5 on admission. Hemoccult positive stool. CT abd/plv without contrast ordered due to CKD, results pending Started Protonix drip Patient had similar episode of hematemesis 3 months ago during previous admission. EGD 01/15/17 revealed Candiadal esophagitis, hiatal hernia, and severe Schatzki ring Patient reports last colonoscopy normal 1 year ago. NPO GI consulted Qualifiers: GI bleed type/associated pathology: unspecified gastrointestinal hemorrhage type Qualified Code(s): K92.2 - Gastrointestinal hemorrhage, unspecified (3) CKD (chronic kidney disease) stage 3, GFR 30-59 ml/min Current visit: Yes Status: Acute Continue blood products. Monitor labs, No signs of fluid overload at this time. (4) Diabetes mellitus type 2 in obese Current visit: Yes Status: Acute Continue half dose basal insulin while NPO. Continue accuchecks (5) Morbid obesity with BMI of 40.0-44.9, adult Current visit: Yes Status: Acute Discussed diet modification and exercise (6) DVT prophylaxis Current visit: Yes Status: Acute SCDs. Avoid heparin due to acute GI bleed Internal Medicine - H&P: HPI Chief complaint: Weakness Admitted From: Home Plans for Post Hospital Care: Home History of present illness: Ms. Be is a pleasant 82 year old female with a PMH of DM, GERD, CKD stage 3, and ventral wall hernias was transferred from [facility] ED with HGB 3.5. She presented from home c/o weakness, fatigue, SOB, N/V/D snce this AM. Her home health nurse reported blood in her vomit and dark tarry stools since yesterday evening. In the ED, rectal exam revealed hemoccult positive stool. Patient had similar episode of hematemesis 3 months ago during previous admission. EGD 01/15/17 revealed Candiadal esophagitis, hiatal hernia, severe Schatzki ring, Patient reports last colonoscopy normal 1 year ago. Patient denies fever, chills, epistaxis, CP, vaginal bleeding, edema, LOC, or recent illness. Past Med Surg Social Fam HX - Past Medical History Medical history: arthritis, diabetes, GERD, glaucoma, hyperlipidemia, hypertension, osteoporosis, renal disease Psychiatric history: no psych history - Past Surgical History Surgical History: cholecystectomy, knee replacement, orthopedic, other - Social History Smoking Status: Never smoker Smokeless Tobacco Status: No Alcohol use: none Drug use: none - Family History Daughter Adopted: No Living Status: Still Living Hx Family Cardiac Disorders: No Hx Family Respiratory Disorders: No Hx Family Cancer: No Hx Family GI Disorders: No Hx Family Endocrine Disorder: Yes (History of diet controlled diabetes after gastric bypass surgery) Hx Family Neuromuscular Disorders: No Hx Family Neurologic Disorders: No Hx Family HEENT Disorders: No Hx Family Autoimmune Disorders: No Mother Hx Family Endocrine Disorder: Yes (DM) Internal Medicine - H&P: Meds Sertraline [Zoloft] 25 mg PO DAILY 05/24/15 [History] LORazepam [Ativan] 0.5 mg PO QID 12/21/15 [History] Cholecalciferol (D-3) [Vitamin D] 50,000 unit PO QWEEK 02/25/16 [History] Latanoprost [Xalatan] 1 drop BOTH EYES HS 02/25/16 [History] Albuterol Sulfate [Proair Respiclick] 2 puff IH Q4H PRN 05/16/16 [History] Rosuvastatin Calcium [Crestor] 10 mg PO DAILY 05/16/16 [History] Ipratropium/Albuterol Neb [Duoneb] 3 ml IH Q6HR 07/27/16 [History] Loratadine [Allergy Relief] 10 mg PO DAILY 01/14/17 [History] Sennosides/Docusate Sodium [Senna-Docusate Sodium Tablet] 2 each PO DAILY PRN [History] Furosemide [Lasix] 20 mg PO DAILY #30 tablet 01/17/17 [Rx] Budesonide/Formoterol 160/4.5 [Symbicort 160/4.5] 2 puff IH BIDR 04/15/17 [ History] HYDROcodone/Acet 7.5/325 mg [[place] 7.5-325 mg] 1 tab PO Q6H PRN 04/15/17 [ History] Insulin Degludec [Tresiba Flextouch U-200] 10 unit SQ DAILY 04/15/17 [History] Montelukast [Singulair] 10 mg PO DAILY 04/15/17 [History] Pregabalin [Lyrica] 75 mg PO BID 04/15/17 [History] hydrALAZINE [HydrALAZINE] 25 mg PO BID 04/15/17 [History] metOLazone [Zaroxolyn] 5 mg PO DAILY 04/15/17 [History] 3 Allergy/AdvReac Type Severity Reaction Status Date / Time azithromycin [From Zithromax] Allergy Hives Verified 12/04/16 15:18 Erythromycin Base Allergy Hives Verified 12/04/16 15:18 levofloxacin Allergy See Verified 12/04/16 15:18 Comments lisinopril Allergy See Verified 04/15/17 17:40 Comments sulfamethoxazole Allergy Hives Verified 12/04/16 15:18 [From Bactrim] trazodone Allergy Hives Verified 12/04/16 15:18 trimethoprim [From Bactrim] Allergy Hives Verified 12/04/16 15:18 tuberculin,PPD,multi-puncture Allergy See Verified 12/02/16 20:20 Comments Pneumococcal Vaccine AdvReac Hallucinati Verified 12/02/16 20:20 ng All Systems PM: A 10-system review of systems was performed and is negative for pertinent findings except as documented above in the HPI. - Constitutional Constitutional: fatigue, weakness, no chills, no fever(s), no weight gain, no weight loss - EENT Eyes: no change in vision Nose, mouth and throat: no dysphagia, no nasal congestion, no sinus pressure - Cardiovascular Cardiovascular ROS IM: no chest pain, no palpitations - Respiratory Respiratory: dyspnea, no chest congestion - Gastrointestinal Gastrointestinal: diarrhea, hematemesis, hematochezia, melena, nausea, vomiting , no abdominal pain, no constipation - Genitourinary Genitourinary: no dysuria, no urinary frequency, no urinary urgency - Musculoskeletal Musculoskeletal ROS IM: no back pain, no numbness, no tingling - Neurological Neurological ROS: weakness, no confusion, no dizziness, no numbness, no tingling - Psychiatric Psychiatric: no anxiety, no depression - Endocrine Endocrine IM: no polydipsia, no polyphagia, no polyuria - Constitutional Vitals: Temp Pulse Resp BP Pulse Ox 97.3 F L 97 20 119/57 98 04/15/17 21:41 04/15/17 21:41 04/15/17 21:41 04/15/17 21:41 04/15/17 21:41 General appearance: Present: cooperative, A&O X 3, morbidly obese, pleasant, no acute distress (pale, black female), answers questions appropriately - Head Head exam: Present: atraumatic, normal inspection, normocephalic - Eye Eye exam: Present: EOMI, PERRL - ENT ENT exam: Present: mucous membranes moist, normal oropharynx - Neck Neck exam general surgery: Present: normal inspection, supple. Absent: lymphadenopathy, tenderness - Respiratory Respiratory exam: Present: CTAB. Absent: decreased breath sounds, rhonchi, wheezes - Cardiovascular Cardiovascular exam: Present: RRR, +S1, +S2 - GI/Abdominal GI/Abdominal exam: Present: hernia, normal bowel sounds, soft. Absent: firm, guarding, tenderness - Extremities Exam Extremities exam: Present: full ROM, warm. Absent: pedal edema, tenderness - Back Exam Back exam: Present: normal inspection. Absent: paraspinal tenderness, tenderness - Neurological Exam Neurological exam: Present: alert, CN II-XII intact, oriented X3. Absent: altered, no focal deficits, strengths equal and symetr throughout - Psychiatric Psychiatric exam: Present: normal affect, normal mood - Skin Skin exam: Present: dry, pallor, warm. Absent: rash Internal Med - H&P Results - Labs Labs: Lab Results 04/15/17 04/15/17 04/15/17 Range/Units 17:50 17:50 17:50 WBC 9.2 (4.3-11.1) K/mcL RBC 1.59 L (3.82-4.97) M/mcL Hgb 3.5 L* (11.5-15.4) g/dL Hct 11.9 L* (35.3-44.9) % MCV 74.8 L (83.0-100.0) fL MCH 22.0 L (28.0-33.3) pg MCHC 29.4 L (31.6-35.5) g/dL RDW 17.4 H (11.5-14.5) % Plt Count 246 (140-400) K/mcL MPV 12.3 (9.4-12.4) fL Immature Gran % 0.9 (0-4) % Seg Neutrophils % 80.6 % Lymphocytes % 12.8 % Monocytes % 5.4 % Eosinophils % 0.2 % Basophils % 0.1 % Neutrophils # 7.4 (1.6-8.9) K/mcL Lymphocytes # 1.2 (0.6-4.6) K/mcL Monocytes # 0.5 (0.0-1.3) K/mcL Eosinophils # 0.0 (0.0-0.6) K/mcL Basophils # 0.0 (0.0-0.2) K/mcL PT 13.9 H (9.4-12.1) Seconds INR 1.3 APTT 23.4 L (26.0-36.0) Seconds Sodium 137 (136-145) mEq/L Potassium 4.5 (3.5-4.5) mEq/L Chloride 105 (98-109) mEq/L Carbon Dioxide 24 (19-29) mEq/L BUN 49 H (7-20) mg/dL Creatinine 1.59 H (0.57-1.11) mg/dL Est GFR ( Amer) 38 L (> 60) Est GFR (Non-Af Amer) 31 L (> 60) BUN/Creatinine Ratio 31 H (6-26) Glucose 317 H (70-99) mg/dL Calculated Osmolality 309 H (280-300) Calcium 8.5 L (8.6-10.8) mg/dL Total Bilirubin 0.2 (0.2-1.2) mg/dL AST 9 (5-34) Units/L ALT 9 (0-55) Units/L Alkaline Phosphatase 38 (38-126) Units/L Creatine Kinase 86 (29-168) Units/L Troponin I (0-0.03) ng/mL B-Natriuretic Peptide (0-100) pg/mL Serum Total Protein 5.8 L (6.0-8.3) g/dL Albumin 2.8 L (3.5-5.0) g/dL Globulin 3.0 (2.4-3.5) g/dL Albumin/Globulin Ratio 0.9 L (1.1-2.2) Stool Occult Blood (Negative) Blood Type Antibody Screen Crossmatch 04/15/17 04/15/17 04/15/17 Range/Units 17:50 17:50 18:00 WBC (4.3-11.1) K/mcL RBC (3.82-4.97) M/mcL Hgb (11.5-15.4) g/dL Hct (35.3-44.9) % MCV (83.0-100.0) fL MCH (28.0-33.3) pg MCHC (31.6-35.5) g/dL RDW (11.5-14.5) % Plt Count (140-400) K/mcL MPV (9.4-12.4) fL Immature Gran % (0-4) % Seg Neutrophils % % Lymphocytes % % Monocytes % % Eosinophils % % Basophils % % Neutrophils # (1.6-8.9) K/mcL Lymphocytes # (0.6-4.6) K/mcL Monocytes # (0.0-1.3) K/mcL Eosinophils # (0.0-0.6) K/mcL Basophils # (0.0-0.2) K/mcL PT (9.4-12.1) Seconds INR APTT (26.0-36.0) Seconds Sodium (136-145) mEq/L Potassium (3.5-4.5) mEq/L Chloride (98-109) mEq/L Carbon Dioxide (19-29) mEq/L BUN (7-20) mg/dL Creatinine (0.57-1.11) mg/dL Est GFR ( Amer) (> 60) Est GFR (Non-Af Amer) (> 60) BUN/Creatinine Ratio (6-26) Glucose (70-99) mg/dL Calculated Osmolality (280-300) Calcium (8.6-10.8) mg/dL Total Bilirubin (0.2-1.2) mg/dL AST (5-34) Units/L ALT (0-55) Units/L Alkaline Phosphatase (38-126) Units/L Creatine Kinase (29-168) Units/L Troponin I 0.05 H* (0-0.03) ng/mL B-Natriuretic Peptide 147 H (0-100) pg/mL Serum Total Protein (6.0-8.3) g/dL Albumin (3.5-5.0) g/dL Globulin (2.4-3.5) g/dL Albumin/Globulin Ratio (1.1-2.2) Stool Occult Blood Positive A (Negative) Blood Type Antibody Screen Crossmatch 04/15/17 Range/Units 18:20 WBC (4.3-11.1) K/mcL RBC (3.82-4.97) M/mcL Hgb (11.5-15.4) g/dL Hct (35.3-44.9) % MCV (83.0-100.0) fL MCH (28.0-33.3) pg MCHC (31.6-35.5) g/dL RDW (11.5-14.5) % Plt Count (140-400) K/mcL MPV (9.4-12.4) fL Immature Gran % (0-4) % Seg Neutrophils % % Lymphocytes % % Monocytes % % Eosinophils % % Basophils % % Neutrophils # (1.6-8.9) K/mcL Lymphocytes # (0.6-4.6) K/mcL Monocytes # (0.0-1.3) K/mcL Eosinophils # (0.0-0.6) K/mcL Basophils # (0.0-0.2) K/mcL PT (9.4-12.1) Seconds INR APTT (26.0-36.0) Seconds Sodium (136-145) mEq/L Potassium (3.5-4.5) mEq/L Chloride (98-109) mEq/L Carbon Dioxide (19-29) mEq/L BUN (7-20) mg/dL Creatinine (0.57-1.11) mg/dL Est GFR ( Amer) (> 60) Est GFR (Non-Af Amer) (> 60) BUN/Creatinine Ratio (6-26) Glucose (70-99) mg/dL Calculated Osmolality (280-300) Calcium (8.6-10.8) mg/dL Total Bilirubin (0.2-1.2) mg/dL AST (5-34) Units/L ALT (0-55) Units/L Alkaline Phosphatase (38-126) Units/L Creatine Kinase (29-168) Units/L Troponin I (0-0.03) ng/mL B-Natriuretic Peptide (0-100) pg/mL Serum Total Protein (6.0-8.3) g/dL Albumin (3.5-5.0) g/dL Globulin (2.4-3.5) g/dL Albumin/Globulin Ratio (1.1-2.2) Stool Occult Blood (Negative) Blood Type A POSITIVE Antibody Screen NEGATIVE Crossmatch See Detail - EKG Data -: EKG Interpreted by Myself EKG shows normal: sinus rhythm, axis (Right axis deviation) Rate: normal - EKG Data Prior EKG available for review: no - Impressions XR/XR chest 1V portable IMPRESSION: Mild pulmonary vascular congestion. D/ / Sherly López MD / Sherly López MD Interpreting Provider: Sherly López MD <Seb Davila - Last Filed: 04/16/17 01:52> Date of Encounter: 04/16/17 Internal Medicine - H&P: HPI History of present illness: Ms. Be is a 82 year old female All Systems PM: A 10-system review of systems was performed and is negative for pertinent findings except as documented above in the HPI. - Constitutional Vitals: Temp Pulse Resp BP Pulse Ox 98.3 F 80 18 114/56 97 04/16/17 00:07 04/16/17 00:07 04/16/17 00:07 04/16/17 00:07 04/16/17 00:07 Internal Med - H&P Results - Labs Labs: Cardiac Enzymes 04/16/17 Range/Units 00:29 Troponin I 0.05 H* (0-0.03) ng/mL - Impressions ITS Impressions Abdomen/Pelvis CT 04/15/17 22:58 IMPRESSION: Diverticulosis without scan evidence for diverticulitis or other acute process. D/ / Angelo Carr MD / Angelo Carr MD Interpreting Provider: Angelo Carr MD - Attending Attestation I examined this patient and my medical decision-making was reviewed with the Resident Physician. I agree with the documented findings, disposition and treatment plan as described except to the extent set forth below. Patient is a 82-year-old female with past medical history of diabetes, GERD, glaucoma, hyperlipidemia, hypertension, osteoporosis and renal disease. Presents as a transfer from [facility] ED. She initially presented from generalized weakness. She also complained of fatigue and nausea and vomiting. She also had some dark tarry stools. Fecal Hemoccult is positive. She did have a history of candidal esophagitis and Schatzki ring. Last colonoscopy done about a year ago was normal. Patient has severe acute blood loss anemia. She requires 4 units PRBCs at least. One unit has been given at the [facility]. Gastroenterology consult pending. Hemodynamically stable. Patient is awake and alert. Able to provide history. No other acute complaints at this time. She denies chest pain or shortness of breath or palpitations.
[2017-04-16] MEDS: Pantoprazole 40 MG in 0.9 % Sodium Chloride Mini Bag 100 ML IVC SCH ×4 (01:19→22:54)
[2017-04-16] MEDS: Insulin LISPRO 300 UNITS/3 ML VIAL SQ SCH ×6 (01:27→18:14)
[2017-04-16] MEDS ORDERED: 0.9 % Sodium Chloride 250 ML ONE ×2 (01:52→09:19)
--- NOTE | 2017-04-16 09:00 | Gastroenterology Consult Note ---
Date of Encounter: 04/16/17 Time of Encounter: 08:56 - Assessment and plan (1) Severe anemia Current Visit: Yes Status: Acute Assessment and plan: CT Abdomen/pelvis showed diverticulosis without diverticulitis, and no acute process noted. Hg at [facility] was 3.5, no repeat H/H seen since then. Etiology likely multifactorial in setting of iron deficiency, CKD, possible GI Bleed. patient had negative prior workup done for GI bleed. endoscopy on 01/15/[address] Cooper showed candidiasis esophagitis, medium hiatal hernia, severe schazki ring which was dilated, normal stomach and duodenum. Plan: continue IV PPI clear liquid diet NPO after midnight EGD/colonoscopy tomorrow. use Golytely bowel prep if bowel movements not clear by 6am use two tap water enemas. patient may continue to drink bowel prep up to two hours prior to procedure. - Time Spent With Patient Total time spent is greater than 50% in coordination of care (as documented) at patient's floor/unit and/or counseling patient: GI History of Present Illness - Data of Consult Consult date: 04/16/17 Requesting Physician: Artur Jarvis MD - Consult Narrative Reason for consult: symptomatic anemia History of present illness: Ms. Be is a 82 year old female with PMHx of GERD, DM, CKD 3, ventral wall hernia, glaucoma, HLD, HTn, Osteoporosis. She originally presented to [facility] ER with chief complaint of fatigue, weakness, shortness of breath, nausea, vomting, diarrhea since earlier that morning. At [facility], she was found to have Hg of 3.5 and was transferred to [place] for further workup. Her home health nurse reported blood in vomit and dark/tarry stools for one day. Of note, she had a similar episode three months ago and was scoped. Patient appears to have poor awareness of her medical issues and is able to give little history. she does not know if she has noticed hematochezia or melena recently. she admits to intermittent shortness of breath, denies chest pain, denies hematuria, denies being on anticoagulation or NSAIDS. she does not have any nausea currently. Past Med Surg Social Fam HX - Past Medical History Medical history: arthritis, atrial fibrillation, CHF, diabetes, GERD, glaucoma, hyperlipidemia, hypertension, osteoporosis, renal disease Psychiatric history: no psych history - Past Surgical History Surgical History: cholecystectomy, knee replacement, orthopedic, other - Social History Smoking Status: Never smoker Smokeless Tobacco Status: No Alcohol use: none Drug use: none - Family History Mother Hx Family Endocrine Disorder: Yes (DM) Daughter Adopted: No Living Status: Still Living Hx Family Cardiac Disorders: No Hx Family Respiratory Disorders: No Hx Family Cancer: No Hx Family GI Disorders: No Hx Family Endocrine Disorder: Yes (History of diet controlled diabetes after gastric bypass surgery) Hx Family Neuromuscular Disorders: No Hx Family Neurologic Disorders: No Hx Family HEENT Disorders: No Hx Family Autoimmune Disorders: No All systems PM: reviewed and no additional remarkable complaints except as stated - Constitutional Vitals: Temp Pulse Resp BP Pulse Ox 98.2 F 68 14 130/64 100 04/16/17 08:25 04/16/17 08:25 04/16/17 08:25 04/16/17 08:25 04/16/17 08:25 General appearance: Present: A&O X 3, pleasant, no acute distress - Head Head exam: Present: atraumatic, normocephalic - Neck Neck exam general surgery: Present: supple, trachea midline - Respiratory Respiratory exam: Present: CTAB - GI/Abdominal GI/Abdominal exam: Present: normal bowel sounds, soft. Absent: distended, tenderness Additional comments: ventral hernia present. - Extremities Exam Extremities exam: Absent: cyanotic, pedal edema - Neurological Exam Neurological exam: Present: alert, oriented X3 Results - Labs CBC & Chem 7: 04/16/17 15:30 04/16/17 14:31 Labs: Last Result Troponin I 0.05 ng/mL (0-0.03) H* 04/16/17 00:29 - Impressions Impressions Abdomen/Pelvis CT 04/15/17 22:58 IMPRESSION: Diverticulosis without scan evidence for diverticulitis or other acute process. D/ / Angelo Carr MD / Angelo Carr MD Interpreting Provider: Angelo Carr MD Consult Discharge Plan - Plan Referrals: Alvarado Dias, DENTAL ASSISTANT INSTRUCTOR [Primary Care Provider] - (SENT WEB REQUEST ON 04-16-17 @ [id number])
--- NOTE | 2017-04-16 09:59 | Internal Med Progress Note ---
<Jaiver Castro - Last Filed: 04/16/17 14:31> Date of Encounter: 04/16/17 Time of Encounter: 09:58 - Assessment and plan (1) Severe anemia Current Visit: Yes Status: Acute Assessment and plan: Patient was trasnferred from [place] and determined to have Hb 3.5 on admission. Hemoccult positive stools. Troponins 0.05, 0.05, stop trending. Likely secondary to CKD and demand ischemia from acute gi bleed/anemia. PT 13.9, INR 1.3 Known previous history of gi bleeds with associated anemia requiring transfusions. No current history of nsaid use, no history of h.pylori. Hemodynamicaly vitals stable. Total [address] abdomen/pelvis revealed diverticulosis without evidence of diverticulitis or acute process. Previous history of EGD 01/15/17 revealed candidial esophagitis, hiatal hernia, and schatzki ring. Colonoscopy completed about 1 year ago was essentially normal. Plan for upper and lower endoscopies tomorrow. Attempted upper earlier today, but had to be aborted due to uncooperative with procedure. Clear liquid diet now, npo after midnight. -Continue monitoring Hb/Hct q6h. -Transfusion pRBC if Hb < 7 -Continue protonix drip -Iron profile ordered (2) GI bleed Current Visit: Yes Status: Acute Assessment and plan: Per plan in assessment above. -GI consulted, plan for upper and lower endoscopy tomorrow. Qualifiers: GI bleed type/associated pathology: unspecified gastrointestinal hemorrhage type Qualified Code(s): K92.2 - Gastrointestinal hemorrhage, unspecified (3) Chronic kidney disease Current Visit: Yes Status: Chronic Assessment and plan: Known history of CKD stage III. No signs of fluid overload. Continue monitoring renal function. Cr 1.59 on arrival, about baseline. Qualifiers: Chronic kidney disease stage: stage 3 (moderate) Qualified Code(s): N18.3 - Chronic kidney disease, stage 3 (moderate) (4) Diabetes Current Visit: Yes Status: Chronic Assessment and plan: Known history of diabetes on insulin. Continue basal insulin at half dosing and insulin sliding scale per protocol. Cautious as this patient is essentially npo/clear liquid diet. Qualifiers: Diabetes mellitus type: type 2 Diabetes mellitus complication status: with kidney complications Diabetes mellitus complication detail: with chronic kidney disease Diabetes mellitus termite control technician insulin use: without termite control technician use Chronic kidney disease stage: stage 3 (moderate) Qualified Code(s): E11.22 - Type 2 diabetes mellitus with diabetic chronic kidney disease; N18.3 - Chronic kidney disease, stage 3 (moderate) (5) DVT prophylaxis Current Visit: Yes Status: Acute Assessment and plan: IPCDs, avoid heparin/lovenox at this time due to suspected gi bleed. - Subjective Interval history: Patient reports mild headache and continued chronic low back pain. Patient is alert and oriented x 4; however, seems to have fairly loose associations at times. Patient denies fevers, chills, sweats, headaches, lightheadedness, dizziness, nausea, vomiting, chest pain, shortness of breath, abdominal pain, diarrhea, dysuria, decreased urination, weakness, or loss of sensation since being admitted. Patient reports burping a lot and had two episodes of dark black gunk vs emesis. Patient also reported metallic taste. She denies noticing any dark tarry or black stools, but reports it is because her who has dementia told her it looked dark and tarry. Patient has a history of previous gi bleeds , but according to patient they have never found the site of bleeding. Diet: known to be soft mechanical/ground foods diet at home. - Constitutional Vitals: Temp Pulse Resp BP Pulse Ox 98.2 F 68 14 130/64 100 04/16/17 08:25 04/16/17 08:25 04/16/17 08:25 04/16/17 08:25 04/16/17 08:25 General appearance: Present: cooperative, A&O X 3, morbidly obese, pleasant, no acute distress (pale, black female), answers questions appropriately Exam: Alert and oriented to person place time and situation; however, seems to have fairly loose associations - Head Head exam: Present: atraumatic, normal inspection, normocephalic - Eye Eye exam: Present: EOMI, normal appearance - ENT ENT exam: Present: mucous membranes moist, normal exam, normal oropharynx Additional comments: dentures noted - Neck Neck exam general surgery: Present: full ROM, normal inspection, supple, trachea midline. Absent: tenderness - Respiratory Respiratory exam: Present: wheezes. Absent: rales, respiratory distress, rhonchi, tachypnea - Cardiovascular Cardiovascular exam: Present: RRR, +S1, +S2. Absent: diastolic murmur, JVD, systolic murmur - GI/Abdominal GI/Abdominal exam: Present: normal bowel sounds, soft. Absent: distended, guarding, rebound, tenderness, no peritoneal signs - Extremities Exam Extremities exam: Present: normal capillary refill, normal inspection, warm, radial pulses palpable and symmetrical. Absent: cyanotic, pedal edema, tenderness - Back Exam Back exam: Present: normal inspection, tenderness. Absent: rash noted - Neurological Exam Neurological exam: Present: alert, oriented X3, no focal deficits, strengths equal and symetr throughout. Absent: motor sensory deficit, facial droop, speech deficit - Psychiatric Psychiatric exam: Present: normal affect, normal mood - Skin Skin exam: Present: dry, intact, normal color, warm. Absent: rash Internal Medicine: Result - Labs Labs: Cardiac Enzymes 04/16/17 Range/Units 00:29 Troponin I 0.05 H* (0-0.03) ng/mL - Impressions Impressions Abdomen/Pelvis CT 04/15/17 22:58 IMPRESSION: Diverticulosis without scan evidence for diverticulitis or other acute process. D/ / Angelo Carr MD / Angelo Carr MD Interpreting Provider: Angelo Carr MD Chest X-Ray 04/16/17 04:00 IMPRESSION: Fvxc-hv-tnoeicjg bibasilar lower lobe airspace disease, which may be due to atelectasis, pneumonia or edema. Trace amount of pleural fluid without drainable pleural effusion D/ / Sarmad Terrazas MD / Sarmad Terrazas MD Interpreting Provider: Sarmad Terrazas MD Consult Discharge Plan - Plan Referrals: Alvarado Dias, [facility] [Primary Care Provider] - (SENT WEB REQUEST ON 04-16-17 @ 1252) <Artur Jarvis - Last Filed: 04/16/17 19:36> Date of Encounter: 04/16/17 - Constitutional Vitals: Temp Pulse Resp BP Pulse Ox 98.3 F 84 21 143/98 93 04/16/17 19:04 04/16/17 19:04 04/16/17 19:04 04/16/17 19:04 04/16/17 19:04 Internal Medicine: Result - Labs CBC & Chem 7: 04/16/17 15:30 04/16/17 14:31 Labs: Short CBC 04/16/17 Range/Units 15:30 WBC 7.9 (4.3-11.1) K/mcL Hgb 8.4 L D (11.5-15.4) g/dL Hct 26.2 L (35.3-44.9) % Plt Count 154 (140-400) K/mcL Neutrophils # 5.4 (1.6-8.9) K/mcL BMP 04/16/17 14:31 Sodium 139 Potassium 4.0 Chloride 110 H Carbon Dioxide 21 BUN 46 H Creatinine 1.43 H Glucose 122 H Calcium 8.1 L Cardiac Enzymes 04/16/17 04/16/17 Range/Units 00:29 14:31 Troponin I 0.05 H* 0.04 H* (0-0.03) ng/mL - ABG Interpretation ABG results: PT/INR, D-dimer PT 12.4 Seconds (9.4-12.1) H 04/16/17 15:30 - Impressions Impressions Abdomen/Pelvis CT 04/15/17 22:58 IMPRESSION: Diverticulosis without scan evidence for diverticulitis or other acute process. D/ / Angelo Carr MD / Angelo Carr MD Interpreting Provider: Angelo Carr MD Chest X-Ray 04/16/17 04:00 IMPRESSION: Kytv-vf-malxcvvy bibasilar lower lobe airspace disease, which may be due to atelectasis, pneumonia or edema. Trace amount of pleural fluid without drainable pleural effusion D/ / Sarmad Terrazas MD / Sarmad Terrazas MD Interpreting Provider: Sarmad Terrazas MD - Attending Attestation I examined this patient and my medical decision-making was reviewed with the Resident Physician. I agree with the documented findings, disposition and treatment plan as described except to the extent set forth below. Patient denies chest pain and shortness of breath. She was admitted for acute on chronic anemia. On exam she is awake alert oriented. Heart is regular. Abdomen is soft. There is a soft, nontender ventral hernia. Lower extremity has 2+ edema. Plan: Transfuse to maintain hemoglobin above 7.0. GI consult. Nothing by mouth. IV Protonix. Start D5 half normal start insulin Levemir 5 units daily and Humalog sliding scale. It is my first day taking care of this patient. All problems are new to me today.
[2017-04-16] MEDS: *HR* HYDROcodone/Acet 7.5/325 mg TABLET PO PRN (12:16)
[2017-04-16] MEDS ORDERED: *HR* Midazolam HCl 5 MG/5 ML VIAL IVP ONE (13:07)
[2017-04-16] MEDS ORDERED: *HR* FentaNYL (PF) 100 MCG/2 ML VIAL ONE (13:08)
[2017-04-16] MEDS ORDERED: Tetracaine/Benzocaine/Butamben 200MG/SPRAY (100SPY/BOT) MM ONE ×2 (13:30→14:01)
[2017-04-16] MEDS ORDERED: *HR* FentaNYL (PF) 100 MCG/2 ML VIAL IVP PRN ×2 (13:30→14:01)
[2017-04-16] MEDS ORDERED: Simethicone 40 MG/0.6 ML MLS IR ONE ×2 (13:30→14:01)
[2017-04-16] MEDS: *HR* Midazolam HCl 5 MG/5 ML VIAL IVP PRN ×4 (13:35→13:46)
[2017-04-16] MEDS ORDERED: *HR* Midazolam HCl 5 MG/5 ML VIAL IVP PRN (14:01)
[2017-04-16] MEDS: Budesonide/Formoterol 160/4.5 MDI IH SCH ×2 (14:01→22:36)
--- NOTE | 2017-04-16 14:03 | Pre-Sedation Evaluation ---
Pre-sedation evaluation - Pre-sedation checklist Procedure: EGD Recent Vitals: Last Vital Signs Temp 98.1 F 04/16/17 11:02 Pulse 78 04/16/17 13:55 Resp 18 04/16/17 13:55 BP 125/72 04/16/17 13:55 Pulse Ox 97 04/16/17 13:55 H&P (including ROS) documented in medical record: Yes Previous reaction to sedatives/anesthetics: No Dietary Status: NPO after Midnight Dentition: dentures removed Possible difficult airway: No ASA Classification *see protocol: CLASS III-Severe systemic disease
[2017-04-16] MEDS ORDERED: SODIUM CHLORIDE/NAHCO3/KCL/PEG 4,000 ML SOLN.RECON PO ONE (14:26)
[2017-04-16 15:06] LABS: Calcium 8.1 mg/dL (8.6-10.8)
[2017-04-16 15:45] LABS: Basophils # 0.1 K/mcL (0.0-0.2); Basophils % 0.8 %; Eosinophils # 0.4 K/mcL (0.0-0.6); Eosinophils % 5.1 %; Hematocrit 26.2 % (35.3-44.9); Hemoglobin 8.4 g/dL (11.5-15.4); Immature Granulocytes % 0.6 % (0-4); Immature Platelets 7.3 % (1.1-6.1); Lymphocytes # 1.5 K/mcL (0.6-4.6); Mean Corpuscular HGB Conc 32.1 g/dL (31.6-35.5); Mean Corpuscular Hemoglobin 27.1 pg (28.0-33.3); Mean Corpuscular Volume 84.5 fL (83.0-100.0); Mean Platelet Volume 11.7 fL (9.4-12.4); Monocytes # 0.5 K/mcL (0.0-1.3); Monocytes % 5.7 %; Neutrophils # 5.4 K/mcL (1.6-8.9); Nucleated Red Blood Cells 0.3 /100 WBC (0); Platelet Count 154 K/mcL (140-400); Red Cell Distribution Width 17.2 % (11.5-14.5); Segmented Neutrophils % 68.8 %
[2017-04-16 15:50] LABS: INR 1.1; Prothrombin Time 12.4 Seconds (9.4-12.1)
[2017-04-16 15:56] LABS: Activated Partial Thrombo Time 16.7 Seconds (26.0-36.0)
[2017-04-16] MEDS: Nystatin POWDER 30 GM BOTTLE TP SCH ×2 (16:39→22:51)
[2017-04-16] MEDS: D5% in 0.45% NACL 1,000 ML IVC SCH (16:57)
[2017-04-16] MEDS ORDERED: D5% in 0.45% NACL 1,000 ML IVC ONE (16:57)
[2017-04-16] MEDS ORDERED: Insulin LISPRO 300 UNITS/3 ML VIAL SQ SCH (21:00)
[2017-04-16] MEDS: Insulin DETEMIR 100 UNIT/ML X5UNITS SQ SCH (22:51)
[2017-04-17 01:01] LABS: Basophils # 0.1 K/mcL (0.0-0.2); Basophils % 0.9 %; Eosinophils # 0.7 K/mcL (0.0-0.6); Eosinophils % 7.6 %; Hematocrit 26.8 % (35.3-44.9); Hemoglobin 8.7 g/dL (11.5-15.4); Immature Granulocytes % 0.6 % (0-4); Lymphocytes # 1.7 K/mcL (0.6-4.6); Lymphocytes % 20.2 %; Mean Corpuscular HGB Conc 32.5 g/dL (31.6-35.5); Mean Corpuscular Hemoglobin 27.4 pg (28.0-33.3); Mean Corpuscular Volume 84.5 fL (83.0-100.0); Mean Platelet Volume 11.8 fL (9.4-12.4); Monocytes # 0.7 K/mcL (0.0-1.3); Monocytes % 7.6 %; Neutrophils # 5.4 K/mcL (1.6-8.9); Platelet Count 180 K/mcL (140-400); Red Blood Count 3.17 M/mcL (3.82-4.97); Red Cell Distribution Width 17.1 % (11.5-14.5); Segmented Neutrophils % 63.1 %
[2017-04-17] MEDS: Insulin LISPRO 300 UNITS/3 ML VIAL SQ SCH ×4 (06:57→17:09)
[2017-04-17] MEDS: Pantoprazole 40 MG in 0.9 % Sodium Chloride Mini Bag 100 ML IVC SCH ×4 (07:09→21:21)
[2017-04-17 07:46] LABS: Calcium 8.3 mg/dL (8.6-10.8); Potassium 3.8 mEq/L (3.5-4.5)
[2017-04-17 07:49] LABS: Basophils # 0.1 K/mcL (0.0-0.2); Basophils % 0.8 %; Eosinophils # 0.7 K/mcL (0.0-0.6); Eosinophils % 10.6 %; Hematocrit 26.5 % (35.3-44.9); Hemoglobin 8.4 g/dL (11.5-15.4); Immature Granulocytes % 0.3 % (0-4); Lymphocytes # 1.5 K/mcL (0.6-4.6); Lymphocytes % 22.6 %; Mean Corpuscular HGB Conc 31.7 g/dL (31.6-35.5); Mean Corpuscular Volume 85.2 fL (83.0-100.0); Mean Platelet Volume 11.8 fL (9.4-12.4); Monocytes # 0.5 K/mcL (0.0-1.3); Monocytes % 8.1 %; Neutrophils # 3.7 K/mcL (1.6-8.9); Platelet Count 157 K/mcL (140-400); Red Blood Count 3.11 M/mcL (3.82-4.97); Red Cell Distribution Width 17.2 % (11.5-14.5); Segmented Neutrophils % 57.6 %
[2017-04-17] MEDS: Nystatin POWDER 30 GM BOTTLE TP SCH ×2 (07:55→21:22)
[2017-04-17] MEDS: Budesonide/Formoterol 160/4.5 MDI IH SCH ×2 (08:09→20:20)
--- NOTE | 2017-04-17 08:36 | Internal Med Progress Note ---
<AntonimoisesJavier arnold - Last Filed: 04/17/17 16:08> Date of Encounter: 04/17/17 Time of Encounter: 08:34 - Assessment and plan (1) Severe anemia Current Visit: Yes Status: Acute Assessment and plan: Patient was transferred from [place] and determined to have Hb 3.5 on admission. Hemoccult positive stools. Troponins 0.05, 0.05, 0.04. Likely secondary to CKD and demand ischemia from acute gi bleed/anemia. PT 13.9, INR 1.3 Known previous history of gi bleeds with associated anemia requiring transfusions. No current history of nsaid use, no history of h.pylori. Hemodynamicaly vitals stable. Total 3 units pRBC completed yesterday, Hb returned to 8.[address] abdomen/pelvis revealed diverticulosis without evidence of diverticulitis or acute process. Previous history of EGD 01/15/17 revealed candidial esophagitis, hiatal hernia, and schatzki ring. Colonoscopy completed about 1 year ago was essentially normal. PT/INR 12.4/1.1 Hb 8.4, 8.7, 8.4 overnight s/p pRBC x3 transfusions. Iron 27L, percent saturation 6% L, transferrin 325 normal. Plan for upper and lower endoscopies tomorrow. Attempted yesterday, but had to be aborted due to uncooperative with procedure. NPO, bowel prep almost fully completed in room. Spoke to GI this afternoon 16: 08pm, patient not clean. Plan for endoscopy tomorrow. Diet: mechanical soft/ground meats, ADA after endoscopy -Transfusion pRBC if Hb < 7 -Continue protonix drip (2) GI bleed Current Visit: Yes Status: Acute Assessment and plan: Per plan in assessment above. -GI consulted, plan for upper and lower endoscopy tomorrow Qualifiers: GI bleed type/associated pathology: unspecified gastrointestinal hemorrhage type Qualified Code(s): K92.2 - Gastrointestinal hemorrhage, unspecified (3) Chronic kidney disease Current Visit: Yes Status: Chronic Assessment and plan: Known history of CKD stage III. No signs of fluid overload. Continue monitoring renal function. Cr 1.59 on arrival, about baseline. Cr 1.33 this morning. Qualifiers: Chronic kidney disease stage: stage 3 (moderate) Qualified Code(s): N18.3 - Chronic kidney disease, stage 3 (moderate) (4) Diabetes Current Visit: Yes Status: Chronic Assessment and plan: Known history of diabetes on insulin. Continue basal insulin at half dosing and insulin sliding scale per protocol. Resume regular diet soft mechanical/ground beef and diabetic after endoscopies. Qualifiers: Diabetes mellitus type: type 2 Diabetes mellitus complication status: with kidney complications Diabetes mellitus complication detail: with chronic kidney disease Diabetes mellitus senior care insulin use: without emergency medcl emt use Chronic kidney disease stage: stage 3 (moderate) Qualified Code(s): E11.22 - Type 2 diabetes mellitus with diabetic chronic kidney disease; N18.3 - Chronic kidney disease, stage 3 (moderate) (5) DVT prophylaxis Current Visit: Yes Status: Acute Assessment and plan: IPCDs, avoid heparin/lovenox at this time due to suspected gi bleed. - Subjective Interval history: Patient reports doing well overnight, no new complaints. Denies hematemesis of dark or bright red stuff, but does report melena dark black stools last evening and now just watery clear to yellow. Patient denies fevers, chills, sweats, headaches, lightheadedness, dizziness, nausea, vomiting, chest pain, shortness of breath, abdominal pain, diarrhea, dysuria, decreased urination, weakness, or loss of sensation since being admitted. Diet: known to be soft mechanical/ground foods diet at home. - Constitutional Vitals: Temp Pulse Resp BP Pulse Ox 98.2 F 67 18 132/65 97 04/17/17 07:49 04/17/17 08:00 04/17/17 08:11 04/17/17 07:49 04/17/17 08:11 General appearance: Present: cooperative, A&O X 3, morbidly obese, pleasant, no acute distress, answers questions appropriately - Head Head exam: Present: atraumatic, normal inspection, normocephalic - Eye Eye exam: Present: EOMI, normal appearance - ENT ENT exam: Present: mucous membranes moist, normal exam, normal oropharynx - Neck Neck exam general surgery: Present: full ROM, normal inspection, supple, trachea midline. Absent: tenderness - Respiratory Respiratory exam: Present: CTAB. Absent: rales, rhonchi, wheezes - Cardiovascular Cardiovascular exam: Present: RRR, +S1, +S2. Absent: diastolic murmur, JVD, systolic murmur - GI/Abdominal GI/Abdominal exam: Present: normal bowel sounds, soft. Absent: distended, guarding, rebound, rigid, tenderness, no peritoneal signs - Extremities Exam Extremities exam: Present: normal capillary refill, normal inspection, warm, radial pulses palpable and symmetrical. Absent: cyanotic, pedal edema, tenderness - Neurological Exam Neurological exam: Present: alert, oriented X3, no focal deficits, strengths equal and symetr throughout. Absent: motor sensory deficit, facial droop, speech deficit - Psychiatric Psychiatric exam: Present: normal affect, normal mood - Skin Skin exam: Present: dry, intact, normal color, warm. Absent: rash Internal Medicine: Result - Labs CBC & Chem 7: 04/17/17 07:12 04/17/17 07:12 Labs: Short CBC 04/16/17 04/17/17 04/17/17 Range/Units 15:30 00:42 07:12 WBC 7.9 8.5 6.4 (4.3-11.1) K/mcL Hgb 8.4 L D 8.7 L 8.4 L (11.5-15.4) g/dL Hct 26.2 L 26.8 L 26.5 L (35.3-44.9) % Plt Count 154 180 157 (140-400) K/mcL Neutrophils # 5.4 5.4 3.7 (1.6-8.9) K/mcL BMP 04/16/17 04/17/17 14:31 07:12 Sodium 139 138 Potassium 4.0 3.8 Chloride 110 H 109 Carbon Dioxide 21 20 BUN 46 H 33 H D Creatinine 1.43 H 1.33 H Glucose 122 H 152 H Calcium 8.1 L 8.3 L Cardiac Enzymes 04/16/17 Range/Units 14:31 Troponin I 0.04 H* (0-0.03) ng/mL - ABG Interpretation ABG results: PT/INR, D-dimer PT 12.4 Seconds (9.4-12.1) H 04/16/17 15:30 - Impressions Impressions Chest X-Ray 04/16/17 04:00 IMPRESSION: Psie-zl-vtubuhkj bibasilar lower lobe airspace disease, which may be due to atelectasis, pneumonia or edema. Trace amount of pleural fluid without drainable pleural effusion D/ / Sarmad Terrazas MD / Sarmad Terrazas MD Interpreting Provider: Sarmad Terrazas MD Consult Discharge Plan - Plan Referrals: Ericka Dias CNP [Primary Care Provider] - (SPOKE WITH OMERO AT [facility] SHE SAID ERICKA DIAS DOES HOME VISITS FOR THIS PATIENT.) Ángel Fraser MD [Partnered Physician] - (SENT WEB REQUEST ON 04-17-17 @ 2624) <Artur Jarvis - Last Filed: 04/17/17 17:17> Date of Encounter: 04/17/17 - Constitutional Vitals: Temp Pulse Resp BP Pulse Ox 98.7 F 70 15 146/65 98 04/17/17 17:00 04/17/17 17:00 04/17/17 17:00 04/17/17 17:00 04/17/17 17:00 Internal Medicine: Result - Labs CBC & Chem 7: 04/17/17 07:12 04/17/17 07:12 Labs: Short CBC 04/17/17 04/17/17 Range/Units 00:42 07:12 WBC 8.5 6.4 (4.3-11.1) K/mcL Hgb 8.7 L 8.4 L (11.5-15.4) g/dL Hct 26.8 L 26.5 L (35.3-44.9) % Plt Count 180 157 (140-400) K/mcL Neutrophils # 5.4 3.7 (1.6-8.9) K/mcL BMP 04/17/17 07:12 Sodium 138 Potassium 3.8 Chloride 109 Carbon Dioxide 20 BUN 33 H D Creatinine 1.33 H Glucose 152 H Calcium 8.3 L - ABG Interpretation ABG results: PT/INR, D-dimer PT 12.4 Seconds (9.4-12.1) H 04/16/17 15:30 - Attending Attestation I examined this patient and my medical decision-making was reviewed with the Resident Physician. I agree with the documented findings, disposition and treatment plan as described except to the extent set forth below. She is in no acute distress. Heart exam reveals regular S1-S2. Lungs are clear. Abdomen soft Hemoglobin is 8. Plan: EGD and colonoscopy in the morning. We will check TSH and free T4.
[2017-04-17] MEDS ORDERED: D5% in 0.45% NACL 1,000 ML IVC ONE (12:07)
[2017-04-17] MEDS: D5% in 0.45% NACL 1,000 ML IVC SCH (12:09)
[2017-04-17] MEDS: *HR* HYDROcodone/Acet 7.5/325 mg TABLET PO PRN (15:30)
[2017-04-17] MEDS ORDERED: Polyethylene Glycol 3350 255 GM POWDER PO ONE (17:00)
[2017-04-17] MEDS: Insulin DETEMIR 100 UNIT/ML X5UNITS SQ SCH (21:23)
[2017-04-18] MEDS: Insulin LISPRO 300 UNITS/3 ML VIAL SQ SCH ×5 (01:02→23:30)
[2017-04-18] MEDS: Pantoprazole 40 MG in 0.9 % Sodium Chloride Mini Bag 100 ML IVC SCH ×5 (02:43→20:36)
[2017-04-18 05:02] LABS: Basophils % 0.6 %; Eosinophils # 0.5 K/mcL (0.0-0.6); Eosinophils % 6.8 %; Hematocrit 26.2 % (35.3-44.9); Hemoglobin 8.4 g/dL (11.5-15.4); Immature Granulocytes % 0.4 % (0-4); Lymphocytes # 1.3 K/mcL (0.6-4.6); Lymphocytes % 18.6 %; Mean Corpuscular HGB Conc 32.1 g/dL (31.6-35.5); Mean Corpuscular Hemoglobin 27.5 pg (28.0-33.3); Mean Corpuscular Volume 85.9 fL (83.0-100.0); Mean Platelet Volume 11.6 fL (9.4-12.4); Monocytes # 0.7 K/mcL (0.0-1.3); Monocytes % 9.7 %; Neutrophils # 4.6 K/mcL (1.6-8.9); Platelet Count 162 K/mcL (140-400); Red Blood Count 3.05 M/mcL (3.82-4.97); Red Cell Distribution Width 17.2 % (11.5-14.5); Segmented Neutrophils % 63.9 %
[2017-04-18 05:20] LABS: Calcium 8.4 mg/dL (8.6-10.8); Potassium 3.3 mEq/L (3.5-4.5)
[2017-04-18] MEDS ORDERED: D5% in 0.45% NACL 1,000 ML IVC ONE (07:36)
[2017-04-18] MEDS: *HR* HYDROcodone/Acet 7.5/325 mg TABLET PO PRN ×2 (07:40→20:21)
[2017-04-18] MEDS: D5% in 0.45% NACL 1,000 ML IVC SCH (07:41)
[2017-04-18] MEDS: Nystatin POWDER 30 GM BOTTLE TP SCH ×2 (07:42→20:28)
[2017-04-18] MEDS ORDERED: Potassium Chloride 20 MEQ, Lidocaine 1% 2 ML in D5% in Water 250 ML IVPB ONE (08:01)
--- NOTE | 2017-04-18 08:03 | Internal Med Progress Note ---
<AntonimoisesJavier arnold - Last Filed: 04/18/17 17:38> Date of Encounter: 04/18/17 Time of Encounter: 08:03 - Assessment and plan (1) Severe anemia Current Visit: Yes Status: Acute Assessment and plan: Patient was transferred from [place] and determined to have Hb 3.5 on admission. Hemoccult positive stools. Troponins 0.05, 0.05, 0.04. Likely secondary to CKD and demand ischemia from acute gi bleed/anemia. PT 12.4, INR 1.1 Known previous history of gi bleeds with associated anemia requiring transfusions. No current history of nsaid use, no history of h.pylori. Hemodynamicaly vitals stable. Total 3 units pRBC completed yesterday, Hb returned to 8.[address] abdomen/pelvis revealed diverticulosis without evidence of diverticulitis or acute process. Previous history of EGD 01/15/17 revealed candidial esophagitis, hiatal hernia, and schatzki ring. Colonoscopy completed about 1 year ago was essentially normal. PT/INR 12.4/1.1 Hb 8.4 this morning, continues to be stable after transfusion on arrival. Iron 27L, percent saturation 6% L, transferrin 325 normal. Plan for upper and lower endoscopies today. Diet: mechanical soft/ground meats, ADA after endoscopy -Transfusion pRBC if Hb < 7 -Continue protonix drip (2) GI bleed Current Visit: Yes Status: Acute Assessment and plan: Per plan in assessment above. -GI consulted, plan for upper and lower endoscopy today EGD 04/18/17 revealed normal esophagus, large hiatal hernia, multiple gastric polyps, normal, duodenum. Colonoscopy 04/18/17 revealed diverticulosis of sigmoid colon, one 2mm nonbleeding polyp in cecum resected, repeat 5 years. Qualifiers: GI bleed type/associated pathology: unspecified gastrointestinal hemorrhage type Qualified Code(s): K92.2 - Gastrointestinal hemorrhage, unspecified (3) Chronic kidney disease Current Visit: Yes Status: Chronic Assessment and plan: Known history of CKD stage III. No signs of fluid overload. Continue monitoring renal function. Cr 1.59 on arrival, about baseline. Cr 1.11 this morning. Qualifiers: Chronic kidney disease stage: stage 3 (moderate) Qualified Code(s): N18.3 - Chronic kidney disease, stage 3 (moderate) (4) Diabetes Current Visit: Yes Status: Chronic Assessment and plan: Known history of diabetes on insulin. Continue basal insulin at half dosing and insulin sliding scale per protocol. Resume regular diet soft mechanical/ground beef and diabetic after endoscopies. Qualifiers: Diabetes mellitus type: type 2 Diabetes mellitus complication status: with kidney complications Diabetes mellitus complication detail: with chronic kidney disease Diabetes mellitus intermediate insulin use: without intermediate use Chronic kidney disease stage: stage 3 (moderate) Qualified Code(s): E11.22 - Type 2 diabetes mellitus with diabetic chronic kidney disease; N18.3 - Chronic kidney disease, stage 3 (moderate) (5) DVT prophylaxis Current Visit: Yes Status: Acute Assessment and plan: IPCDs, avoid heparin/lovenox at this time due to suspected gi bleed. - Subjective Interval history: Patient reports doing well overnight, no new complaints. Denies hematemesis, hematochezia, melena overnight. Continues having watery clear yellow diarrhea. Denies fevers, chills, sweats, headaches, lightheadedness, dizziness, nausea, vomiting, chest pain, shortness of breath, abdominal pain, diarrhea, dysuria, decreased urination, weakness, or loss of sensation. Plan for upper and lower endoscopy today, Hb stable at 8.4 since 3 Units pRBC two days ago. - Constitutional Vitals: Temp Pulse Resp BP Pulse Ox 98.7 F 66 16 126/88 98 04/18/17 04:08 04/18/17 07:51 04/18/17 04:08 04/18/17 04:08 04/18/17 04:08 General appearance: Present: cooperative, A&O X 3, morbidly obese, pleasant, no acute distress, answers questions appropriately - Head Head exam: Present: atraumatic, normal inspection, normocephalic - Eye Eye exam: Present: EOMI, normal appearance - ENT ENT exam: Present: mucous membranes moist, normal exam, normal oropharynx - Neck Neck exam general surgery: Present: full ROM, normal inspection, supple, trachea midline. Absent: tenderness - Respiratory Respiratory exam: Present: CTAB. Absent: rales, rhonchi, wheezes - Cardiovascular Cardiovascular exam: Present: RRR, +S1, +S2. Absent: diastolic murmur, JVD, systolic murmur - GI/Abdominal GI/Abdominal exam: Present: normal bowel sounds, soft. Absent: distended, guarding, rebound, tenderness - Extremities Exam Extremities exam: Present: full ROM, normal capillary refill, normal inspection , warm, radial pulses palpable and symmetrical. Absent: cyanotic, pedal edema, tenderness - Neurological Exam Neurological exam: Present: alert, oriented X3, no focal deficits, strengths equal and symetr throughout. Absent: motor sensory deficit, facial droop, speech deficit - Psychiatric Psychiatric exam: Present: normal affect, normal mood - Skin Skin exam: Present: dry, intact, normal color, warm. Absent: rash Internal Medicine: Result - Labs CBC & Chem 7: 04/18/17 03:55 04/18/17 03:55 Labs: Short CBC 04/18/17 Range/Units 03:55 WBC 7.1 (4.3-11.1) K/mcL Hgb 8.4 L (11.5-15.4) g/dL Hct 26.2 L (35.3-44.9) % Plt Count 162 (140-400) K/mcL Neutrophils # 4.6 (1.6-8.9) K/mcL BMP 04/18/17 03:55 Sodium 137 Potassium 3.3 L Chloride 109 Carbon Dioxide 18 L BUN 18 D Creatinine 1.11 Glucose 134 H Calcium 8.4 L - ABG Interpretation ABG results: PT/INR, D-dimer PT 12.4 Seconds (9.4-12.1) H 04/16/17 15:30 - VTE Documentation of Mechanical Device: Intermittent pneumatic compression device Consult Discharge Plan - Plan Referrals: Ericka Dias ANCHOR OPERATOR [Primary Care Provider] - (SPOKE WITH OMERO AT [facility] SHE SAID ERICKA DIAS DOES HOME VISITS FOR THIS PATIENT.) Ángel Fraser MD [Partnered Physician] - (SENT WEB REQUEST ON 04-17-17 @ 6094) <Artur Jarvis - Last Filed: 04/18/17 18:29> Date of Encounter: 04/18/17 - Constitutional Vitals: Temp Pulse Resp BP Pulse Ox 97.9 F 65 15 143/55 98 04/18/17 16:27 04/18/17 17:30 04/18/17 17:30 04/18/17 17:30 04/18/17 17:30 Internal Medicine: Result - Labs CBC & Chem 7: 04/18/17 03:55 04/18/17 03:55 Labs: Short CBC 04/18/17 Range/Units 03:55 WBC 7.1 (4.3-11.1) K/mcL Hgb 8.4 L (11.5-15.4) g/dL Hct 26.2 L (35.3-44.9) % Plt Count 162 (140-400) K/mcL Neutrophils # 4.6 (1.6-8.9) K/mcL BMP 04/18/17 03:55 Sodium 137 Potassium 3.3 L Chloride 109 Carbon Dioxide 18 L BUN 18 D Creatinine 1.11 Glucose 134 H Calcium 8.4 L - ABG Interpretation ABG results: PT/INR, D-dimer PT 12.4 Seconds (9.4-12.1) H 04/16/17 15:30 - Attending Attestation I examined this patient and my medical decision-making was reviewed with the Resident Physician. I agree with the documented findings, disposition and treatment plan as described except to the extent set forth below. Patient reports no nausea or vomiting. No abdominal pain Her abdomen is soft nontender nondistended with normoactive bowel sounds. There is a nontender ventral hernia. Laboratory: Hemoglobin is 8.4. Creatinine 1.1. Plan: EGD today and adjust plan based on findings. Monitor hemoglobin and hematocrit.
--- NOTE | 2017-04-18 08:08 | Electrocardiograph Report ---
[address] [address] Test Date: 2017-04-16 Pat Name: Dennys Be Department: 110 Room: 2N14 Gender: F Director Home: [id number] : 1935 Requested By: Artur Jarvis Order Number: [id number] Reading MD: Sagar Woods MD Measurements Intervals [place] Rate: 79 P: 21 CO: 188 QRS: -21 QRSD: 92 T: 60 QT: 388 QTc: 422 Interpretive Statements SINUS RHYTHM WITH FREQUENT SUPRAVENTRICULAR PREMATURE COMPLEXES BORDERLINE LEFT AXIS DEVIATION LOW QRS VOLTAGE IN PRECORDIAL LEADS Electronically Signed On 04-18-2017 6:26:56 EDT by Sagar Woods MD
[2017-04-18] MEDS: Budesonide/Formoterol 160/4.5 MDI IH SCH ×2 (10:23→20:07)
[2017-04-18] MEDS: 0.9 % Sodium Chloride 1,000 ML IVC SCH (13:26)
--- NOTE | 2017-04-18 13:30 | Anesthesia Evaluation PreOp ---
Date of Encounter: 04/18/17 Time of Encounter: 13:28 - Past History Planned Operation: EGD/Colonoscopy Cardiac History: HTN, Hyperlipidemia Pulmonary History: Denies Any Significant HX TELECOMMUNICATION ENGINEER History: Denies Any Significant HX Other Medical History: Renal (CKD stage 3), Diabetes Type II, GERD Anesthesia History: No Prior Anesthetic Complications, Past Anesthesia Alcohol Use: none Drug use: none Medications and Allergies Sertraline [Zoloft] 25 mg PO DAILY 05/24/15 [History] LORazepam [Ativan] 0.5 mg PO QID 12/21/15 [History] Cholecalciferol (D-3) [Vitamin D] 50,000 unit PO QWEEK 02/25/16 [History] Latanoprost [Xalatan] 1 drop BOTH EYES HS 02/25/16 [History] Albuterol Sulfate [Proair Respiclick] 2 puff IH Q4H PRN 05/16/16 [History] Rosuvastatin Calcium [Crestor] 10 mg PO DAILY 05/16/16 [History] Ipratropium/Albuterol Neb [Duoneb] 3 ml IH Q6HR 07/27/16 [History] Loratadine [Allergy Relief] 10 mg PO DAILY 01/14/17 [History] Sennosides/Docusate Sodium [Senna-Docusate Sodium Tablet] 2 each PO DAILY PRN [History] Budesonide/Formoterol 160/4.5 [Symbicort 160/4.5] 2 puff IH BIDR 04/15/17 [ History] HYDROcodone/Acet 7.5/325 mg [[place] 7.5-325 mg] 1 tab PO Q6H PRN 04/15/17 [ History] Insulin Degludec [Tresiba Flextouch U-200] 10 unit SQ DAILY 04/15/17 [History] Pregabalin [Lyrica] 75 mg PO BID 04/15/17 [History] hydrALAZINE [HydrALAZINE] 25 mg PO BID 04/15/17 [History] metOLazone [Zaroxolyn] 5 mg PO DAILY 04/15/17 [History] Aspirin [Lo-Dose Aspirin EC] 81 mg PO DAILY 04/16/17 [History] Calcium Carbonate/Vitamin D3 [Calcium 500 + Vit D 200 Caplet] 1 tab PO DAILY [History] Esomeprazole Magnesium [Nexium] 40 mg PO DAILY 04/16/17 [History] Glimepiride [Amaryl] 1 mg PO DAILY 04/16/17 [History] Oxybutynin [Ditropan] 5 mg PO DAILY 04/16/17 [History] Pantoprazole Sodium 40 mg PO DAILY 04/16/17 [History] Potassium Chloride [Klor-Con 10] 10 meq PO DAILY 04/16/17 [History] Primidone [Mysoline] 50 mg PO DAILY 04/16/17 [History] 3 Allergy/AdvReac Type Severity Reaction Status Date / Time azithromycin [From Zithromax] Allergy Hives Verified 12/04/16 15:18 Erythromycin Base Allergy Hives Verified 12/04/16 15:18 levofloxacin Allergy See Verified 12/04/16 15:18 Comments lisinopril Allergy See Verified 04/15/17 17:40 Comments sulfamethoxazole Allergy Hives Verified 12/04/16 15:18 [From Bactrim] trazodone Allergy Hives Verified 12/04/16 15:18 trimethoprim [From Bactrim] Allergy Hives Verified 12/04/16 15:18 tuberculin,PPD,multi-puncture Allergy See Verified 12/02/16 20:20 Comments Pneumococcal Vaccine AdvReac Hallucinati Verified 12/02/16 20:20 ng - Meds/Allergy Pre-op Review Medications Reviewed: Yes Allergies Reviewed: Yes Beta Blockers on Current Med List: No Anesthesia Results - Labs 04/18/17 03:55 04/18/17 03:55 - Imaging EKG: report reviewed (04/16/2017 SINUS RHYTHM WITH FREQUENT SUPRAVENTRICULAR PREMATURE COMPLEXES BORDERLINE LEFT AXIS DEVIATION LOW QRS VOLTAGE IN PRECORDIAL LEADS) Anesthesia Exam Vital Signs/O2 Sat/Glucose, Most Recent Temp Pulse Resp BP Pulse Ox 97.6 F 72 18 160/80 98 04/18/17 13:15 04/18/17 13:15 04/18/17 13:15 04/18/17 13:15 04/18/17 13:15 Blood Glucose* 148 Height: 5'4'' Weight: 255 lbs NPO (# of Hours): 8 Pain Scale: 0 Pain Scale Used: Numeric (1 - 10) - HEENT Pupil (Motor): EOMI Mallampati: II Teeth: Edentulous Oral Opening: Greater than 3 - TELECOMMUNICATION ENGINEER LOC: Oriented TELECOMMUNICATION ENGINEER Motor: Normal RUE, Normal LUE, Normal RLE, Normal LLE, Normal Face TELECOMMUNICATION ENGINEER Sensory: Normal: RUE, LUE, Face, Deficit: RLE, LLE - Cardiac Rhythm: Regular Murmur: None - Pulmonary Breath Sounds: bilateral Clear Respiratory Effort: Symmetrical Anesthesia Assess/Plan ASA Score: 3 Modified James Scale for Level of Consciousness: Cooperative, oriented, and tranquil Anesthetic Plan: MAC Monitoring Plan: Standard Monitors
[2017-04-18] MEDS ORDERED: *HR* Propofol 200 MG/20 ML VIAL IVP ONE (14:36)
[2017-04-18] MEDS: Bisacodyl 10 MG RECTAL SUPPOSITORY RC SCH (17:33)
[2017-04-18] MEDS: Insulin DETEMIR 100 UNIT/ML X5UNITS SQ SCH (20:21)
[2017-04-19] MEDS: Pantoprazole 40 MG in 0.9 % Sodium Chloride Mini Bag 100 ML IVC SCH ×3 (01:10→09:00)
[2017-04-19 03:59] LABS: Basophils % 0.4 %; Eosinophils # 0.4 K/mcL (0.0-0.6); Eosinophils % 9.1 %; Hematocrit 24.3 % (35.3-44.9); Hemoglobin 7.6 g/dL (11.5-15.4); Immature Granulocytes % 0.2 % (0-4); Immature Platelets 5.3 % (1.1-6.1); Lymphocytes # 1.3 K/mcL (0.6-4.6); Lymphocytes % 27.2 %; Mean Corpuscular HGB Conc 31.3 g/dL (31.6-35.5); Mean Corpuscular Hemoglobin 26.9 pg (28.0-33.3); Mean Corpuscular Volume 85.9 fL (83.0-100.0); Monocytes # 0.4 K/mcL (0.0-1.3); Monocytes % 9.1 %; Neutrophils # 2.6 K/mcL (1.6-8.9); Platelet Count 157 K/mcL (140-400); Red Blood Count 2.83 M/mcL (3.82-4.97); Red Cell Distribution Width 17.3 % (11.5-14.5)
[2017-04-19 04:13] LABS: Calcium 8.1 mg/dL (8.6-10.8); Potassium 3.5 mEq/L (3.5-4.5)
[2017-04-19] MEDS: Insulin LISPRO 300 UNITS/3 ML VIAL SQ SCH ×2 (05:37→12:23)
[2017-04-19] MEDS: 0.9 % Sodium Chloride 1,000 ML IVC SCH (05:38)
[2017-04-19] MEDS: Budesonide/Formoterol 160/4.5 MDI IH SCH (07:47)
[2017-04-19] MEDS ORDERED: Iron Sucrose Complex 400 MG in 0.9 % Sodium Chloride 250 ML IVPB ONE (07:57)
--- NOTE | 2017-04-19 08:39 | Internal Med Progress Note ---
Date of Encounter: 04/19/17 Time of Encounter: 08:39 - Assessment and plan (1) Severe anemia Current Visit: Yes Status: Acute (2) GI bleed Current Visit: Yes Status: Acute Qualifiers: GI bleed type/associated pathology: unspecified gastrointestinal hemorrhage type Qualified Code(s): K92.2 - Gastrointestinal hemorrhage, unspecified (3) Chronic kidney disease Current Visit: Yes Status: Chronic Qualifiers: Chronic kidney disease stage: stage 3 (moderate) Qualified Code(s): N18.3 - Chronic kidney disease, stage 3 (moderate) (4) Diabetes Current Visit: Yes Status: Chronic Qualifiers: Diabetes mellitus type: type 2 Diabetes mellitus complication status: with kidney complications Diabetes mellitus complication detail: with chronic kidney disease Diabetes mellitus fpc insulin use: without long term care administrator use Chronic kidney disease stage: stage 3 (moderate) Qualified Code(s): E11.22 - Type 2 diabetes mellitus with diabetic chronic kidney disease; N18.3 - Chronic kidney disease, stage 3 (moderate) (5) DVT prophylaxis Current Visit: Yes Status: Acute - Subjective Interval history: Patient reports doing well overnight, no new complaints. Denies hematemesis, hematochezia, melena overnight. Continues having watery clear yellow diarrhea. Denies fevers, chills, sweats, headaches, lightheadedness, dizziness, nausea, vomiting, chest pain, shortness of breath, abdominal pain, diarrhea, dysuria, decreased urination, weakness, or loss of sensation. Plan for upper and lower endoscopy today, Hb stable at 8.4 since 3 Units pRBC two days ago. - Constitutional Vitals: Temp Pulse Resp BP Pulse Ox 98.1 F 64 18 128/60 96 04/19/17 07:52 04/19/17 08:05 04/19/17 07:52 04/19/17 07:52 04/19/17 07:52 General appearance: Present: cooperative, A&O X 3, morbidly obese, pleasant, no acute distress, answers questions appropriately Internal Medicine: Result - Labs CBC & Chem 7: 04/19/17 03:34 04/19/17 03:34 Labs: Short CBC 04/19/17 Range/Units 03:34 WBC 4.8 (4.3-11.1) K/mcL Hgb 7.6 L (11.5-15.4) g/dL Hct 24.3 L (35.3-44.9) % Plt Count 157 (140-400) K/mcL Neutrophils # 2.6 (1.6-8.9) K/mcL BMP 04/19/17 03:34 Sodium 141 Potassium 3.5 Chloride 112 H Carbon Dioxide 21 BUN 11 Creatinine 1.11 Glucose 67 L Calcium 8.1 L - ABG Interpretation ABG results: PT/INR, D-dimer PT 12.4 Seconds (9.4-12.1) H 04/16/17 15:30 - VTE Documentation of Mechanical Device: Intermittent pneumatic compression device Consult Discharge Plan - Plan Referrals: Ericka Dias CNP [Primary Care Provider] - (SPOKE WITH OMERO AT [facility] SHE SAID ERICKA DIAS DOES HOME VISITS FOR THIS PATIENT.) Ángel Fraser MD [Partnered Physician] - (SENT WEB REQUEST ON 04-17-17 @ [phone])
[2017-04-19] MEDS: Nystatin POWDER 30 GM BOTTLE TP SCH (08:59)
[2017-04-19] MEDS: Bisacodyl 10 MG RECTAL SUPPOSITORY RC SCH (08:59)
--- NOTE | 2017-04-19 10:52 | Discharge Summary ---
<Javier Castro - Last Filed: 04/19/17 11:07> Date of Encounter: 04/19/17 Time of Encounter: 10:49 - Discharge Diagnosis (1) Severe anemia Priority: Primary Status: Acute Comments: Patient was transferred from [place] and determined to have Hb 3.5 on admission. Hemoccult positive stools. Troponins 0.05, 0.05, 0.04. Likely secondary to CKD and demand ischemia from acute gi bleed/anemia. PT 12.4, INR 1.1 Known previous history of gi bleeds with associated anemia requiring transfusions. No current history of nsaid use, no history of h.pylori. Hemodynamicaly vitals stable. Total 3 units pRBC completed yesterday, Hb returned to 8.4 after transfusions and stable for [address] abdomen/pelvis revealed diverticulosis without evidence of diverticulitis or acute process. Previous history of EGD 01/15/17 revealed candidial esophagitis, hiatal hernia, and schatzki ring. Colonoscopy completed about 1 year ago was essentially normal. Iron 27L, percent saturation 6% L, transferrin 325 normal. Hb 04/19/17 on discharge 7.6. (2) GI bleed Priority: Primary Status: Acute Comments: EGD 04/18/17 revealed normal esophagus, large hiatal hernia, multiple gastric polyps, normal, duodenum. Colonoscopy 04/18/17 revealed diverticulosis of sigmoid colon, one 2mm nonbleeding polyp in cecum resected, repeat 5 years. Qualifiers: GI bleed type/associated pathology: unspecified gastrointestinal hemorrhage type Qualified Code(s): K92.2 - Gastrointestinal hemorrhage, unspecified (3) Chronic kidney disease Priority: Secondary Status: Chronic Qualifiers: Chronic kidney disease stage: stage 3 (moderate) Qualified Code(s): N18.3 - Chronic kidney disease, stage 3 (moderate) (4) Diabetes Priority: Secondary Status: Chronic Qualifiers: Diabetes mellitus type: type 2 Diabetes mellitus complication status: with kidney complications Diabetes mellitus complication detail: with chronic kidney disease Diabetes mellitus termite treater insulin use: without jail use Chronic kidney disease stage: stage 3 (moderate) Qualified Code(s): E11.22 - Type 2 diabetes mellitus with diabetic chronic kidney disease; N18.3 - Chronic kidney disease, stage 3 (moderate) - Discharge Medications Home Medications: Sertraline [Zoloft] 25 mg PO DAILY 05/24/15 [History] LORazepam [Ativan] 0.5 mg PO QID 12/21/15 [History] Cholecalciferol (D-3) [Vitamin D] 50,000 unit PO QWEEK 02/25/16 [History] Latanoprost [Xalatan] 1 drop BOTH EYES HS 02/25/16 [History] Albuterol Sulfate [Proair Respiclick] 2 puff IH Q4H PRN 05/16/16 [History] Rosuvastatin Calcium [Crestor] 10 mg PO DAILY 05/16/16 [History] Ipratropium/Albuterol Neb [Duoneb] 3 ml IH Q6HR 07/27/16 [History] Loratadine [Allergy Relief] 10 mg PO DAILY 01/14/17 [History] Sennosides/Docusate Sodium [Senna-Docusate Sodium Tablet] 2 each PO DAILY PRN [History] Budesonide/Formoterol 160/4.5 [Symbicort 160/4.5] 2 puff IH BIDR 04/15/17 [ History] HYDROcodone/Acet 7.5/325 mg [[place] 7.5-325 mg] 1 tab PO Q6H PRN 04/15/17 [ History] Insulin Degludec [Tresiba Flextouch U-200] 10 unit SQ DAILY 04/15/17 [History] Pregabalin [Lyrica] 75 mg PO BID 04/15/17 [History] hydrALAZINE [HydrALAZINE] 25 mg PO BID 04/15/17 [History] metOLazone [Zaroxolyn] 5 mg PO DAILY 04/15/17 [History] Aspirin [Lo-Dose Aspirin EC] 81 mg PO DAILY 04/16/17 [History] Calcium Carbonate/Vitamin D3 [Calcium 500-Vit D3 200 Caplet] 1 tab PO DAILY [History] Esomeprazole Magnesium [Nexium] 40 mg PO DAILY 04/16/17 [History] Glimepiride [Amaryl] 1 mg PO DAILY 04/16/17 [History] Oxybutynin [Ditropan] 5 mg PO DAILY 04/16/17 [History] Pantoprazole Sodium 40 mg PO DAILY 04/16/17 [History] Potassium Chloride [Klor-Con 10] 10 meq PO DAILY 04/16/17 [History] Primidone [Mysoline] 50 mg PO DAILY 04/16/17 [History] Allergies/Adverse Reactions: 3 Allergy/AdvReac Type Severity Reaction Status Date / Time azithromycin [From Zithromax] Allergy Hives Verified 12/04/16 15:18 Erythromycin Base Allergy Hives Verified 12/04/16 15:18 levofloxacin Allergy See Verified 12/04/16 15:18 Comments lisinopril Allergy See Verified 04/15/17 17:40 Comments sulfamethoxazole Allergy Hives Verified 12/04/16 15:18 [From Bactrim] trazodone Allergy Hives Verified 12/04/16 15:18 trimethoprim [From Bactrim] Allergy Hives Verified 12/04/16 15:18 tuberculin,PPD,multi-puncture Allergy See Verified 12/02/16 20:20 Comments Pneumococcal Vaccine AdvReac Hallucinati Verified 12/02/16 20:20 ng Date of admission: 04/15/17 23:12 Primary care physician: Ericka Dias CNP Consults: 04/15/17 23:10 Consult to Gastroenterology [CONS] Routine Consulting Provider: Gastroenterology Marii Reason for Consult: GI bleed, HGB 3.5 Call Completed: No 04/16/17 07:10 Consult to Director Case [CONS] Routine Reason for SW Consult: Patient reports she lives at home with her . Reports that her was admitted to "[facility]" for 2-7 days for rehab and she was forced to go stay there during that time as well because there was no one at home to care for her. Reports that her grand daughter and POA, Rhoda, works at that "rest home" and she does not want to go back, she wants to go home. Reports that her and her self just returned home from the "rest home" on and she does not want to be anywhere but home, but her granddaughter talked her in to coming to the hospital for evaluation. Unknown at this time if patient will have discharge needs. 04/16/17 10:08 Consult to Invasive Line Access Team [CONS] Routine Reason for Consult: limited access Line Type: EPIV [facility] Anticipated date of discharge: 04/19/17 - Patient Status Disposition: Home, Self-Care Condition: Good Functional capacity at discharge: uses cane/walker Overall status at discharge: patient is progressing back to baseline - Discharge Instructions Instructions: Gastrointestinal Bleeding (DC), Anemia (GEN) Follow Up With: Ericka Dias CNP [Primary Care Provider] - (SPOKE WITH OMERO AT [facility] SHE SAID ERICKA DIAS DOES HOME VISITS FOR THIS PATIENT.) Ángel Fraser MD [Partnered Physician] - (SENT WEB REQUEST ON 04-17-17 @ [phone]) - Diet and Activity Activity: increase activity as tolerated Diet: diabetic diet, low salt diet, other (renal, soft ground meats diet) Interval History: Patient reports doing well overnight, no complaints. Denies fevers, chills, sweats, nausea, vomiting, lightheadedness, headaches, chest pain, shortness of breath, abdominal pain, bloody stools or dark tarry stools, weakness, or loss of sensation. Hospital course: Ms. Be is a 82 year old female with history of prior gi bleeds requiring transfusions, diabetes, ckd stage 3, ventral wall hernia, hypertension, and gerd who was transferred to [facility] ED and admitted with complaints of weakness, fatigue, nausea, vomiting, diarrhea, dark tarry stools, and possible dark crumbs in her vomitus and was determined to have Hb of 3.5 on admission and hemoccult positive stools. Patient was also determined to have troponins of 0.05 and 0.05. Patient was transfused with 3 units pRBC with return of Hb to 8.4. CT abdomen/pelvis revealed diverticulosis without evidence of diverticulitis or acute process. Hb was stable at 8.4 for > 48 hours. Patient underrwent upper and lower endoscopies on 04/18/17 which revealed normal esophagus, large hiatal hernia, multiple gastric polyps, normal, duodenum. Colonoscopy 04/18/17 revealed diverticulosis of sigmoid colon, one 2mm nonbleeding polyp in cecum resected, repeat 5 years. Patient tolerated mechanical soft and ground meat diet without difficulty. Hb was 7.6 on discharge and patient was discharged to follow up with PCP in 3-5 days and GI within the next two weeks after discharge. - Time Spent with Patient Total time spent providing and/or coordinating discharge services: - Constitutional Vitals: Temp Pulse Resp BP Pulse Ox 98.1 F 64 18 128/60 96 04/19/17 07:52 04/19/17 08:05 04/19/17 07:52 04/19/17 07:52 04/19/17 07:52 General appearance: Present: cooperative, A&O X 3, morbidly obese, pleasant, no acute distress, answers questions appropriately - Head Head exam: Present: atraumatic, normal inspection, normocephalic - Eye Eye exam: Present: EOMI, normal appearance - ENT ENT exam: Present: mucous membranes moist, normal exam, normal oropharynx - Neck Neck exam general surgery: Present: full ROM, normal inspection, supple, trachea midline. Absent: tenderness - Respiratory Respiratory exam: Present: CTAB. Absent: rales, rhonchi, wheezes - Cardiovascular Cardiovascular exam: Present: RRR, +S1, +S2. Absent: diastolic murmur, JVD, systolic murmur - GI/Abdominal GI/Abdominal exam: Present: normal bowel sounds, soft. Absent: distended, guarding, tenderness - Extremities Exam Extremities exam: Present: full ROM, normal capillary refill, warm, radial pulses palpable and symmetrical. Absent: pedal edema, tenderness - Neurological Exam Neurological exam: Present: alert, oriented X3, no focal deficits, strengths equal and symetr throughout. Absent: motor sensory deficit, facial droop, speech deficit - Psychiatric Psychiatric exam: Present: normal affect, normal mood - Skin Skin exam: Present: dry, intact, normal color, warm. Absent: rash - VTE Documentation of Mechanical Device: Intermittent pneumatic compression device <Artur Jarvis - Last Filed: 04/19/17 17:42> Date of Encounter: 04/19/17 Date of admission: 04/15/17 23:12 Primary care physician: Ericka Dias CNP Consults: 04/15/17 23:10 Consult to Gastroenterology [CONS] Routine Consulting Provider: Gastroenterology Marii Reason for Consult: GI bleed, HGB 3.5 Call Completed: No 04/16/17 07:10 Consult to Director Case [CONS] Routine Reason for SW Consult: Patient reports she lives at home with her . Reports that her was admitted to "[facility]" for 2-7 days for rehab and she was forced to go stay there during that time as well because there was no one at home to care for her. Reports that her grand daughter and POA, Rhoda, works at that "rest home" and she does not want to go back, she wants to go home. Reports that her and her self just returned home from the "rest home" on and she does not want to be anywhere but home, but her granddaughter talked her in to coming to the hospital for evaluation. Unknown at this time if patient will have discharge needs. 04/16/17 10:08 Consult to Invasive Line Access Team [CONS] Routine Reason for Consult: limited access Line Type: EPIV Hospital course: Ms. Be is a 82 year old female - Time Spent with Patient Total time spent providing and/or coordinating discharge services: - Constitutional Vitals: Temp Pulse Resp BP Pulse Ox 97.7 F 80 16 133/70 96 04/19/17 11:53 04/19/17 11:53 04/19/17 11:53 04/19/17 11:53 04/19/17 11:53 - Attending Attestation I examined this patient and my medical decision-making was reviewed with the Resident Physician. I agree with the documented findings, disposition and treatment plan as described except to the extent set forth below. Patient is in no acute distress awake and oriented. Abdomen as soft, nontender nondistended. Patient completed an EGD and colonoscopy. No source of bleeding was found. Laboratory studies reveal iron deficiency anemia. I will order 1 dose of Venofer and will discharge the patient home. She should follow up closely with her primary care physician and may need a repeat IV iron therapy.
[2017-04-19 11:55] VITALS: BP 133/70
[2017-04-19] MEDS: D5% in 0.45% NACL 1,000 ML IVC SCH (12:50)
[2017-04-19 12:52] LABS: Hematocrit 26.8 % (35.3-44.9); Hemoglobin 8.4 g/dL (11.5-15.4)
--- NOTE | 2017-04-19 14:09 | Physician Discharge Referral ---
Home Health/Hosp Referral Info Transfer to: Home Health Attending Provider: Dr. Jarvis Provider in Charge Post Discharge: PCP - Diagnosis (1) Severe anemia Priority: Primary Status: Acute (2) GI bleed Priority: Primary Status: Acute (3) Chronic kidney disease Priority: Secondary Status: Chronic (4) Diabetes Priority: Secondary Status: Chronic - Respiratory Orders Smoking Cessation: Smoking cessation has been advised. For more information, call the [place] Tobacco Quit Line at 3-874-BUKF-NOW. - Diet/Nutrition Diet/Nutrition Orders: Mechanical Soft, No Added Salt (LAMIN), No Concentrated Sweets - Activity Activity Orders: Walker - Services Needed Following services are medically necessary services: Nursing, Home Health Aide, Physical Therapy, Occupational Therapy - Transfer Medications Home Medications: Sertraline [Zoloft] 25 mg PO DAILY 05/24/15 [History] LORazepam [Ativan] 0.5 mg PO QID 12/21/15 [History] Cholecalciferol (D-3) [Vitamin D] 50,000 unit PO QWEEK 02/25/16 [History] Latanoprost [Xalatan] 1 drop BOTH EYES HS 02/25/16 [History] Albuterol Sulfate [Proair Respiclick] 2 puff IH Q4H PRN 05/16/16 [History] Rosuvastatin Calcium [Crestor] 10 mg PO DAILY 05/16/16 [History] Ipratropium/Albuterol Neb [Duoneb] 3 ml IH Q6HR 07/27/16 [History] Loratadine [Allergy Relief] 10 mg PO DAILY 01/14/17 [History] Sennosides/Docusate Sodium [Senna-Docusate Sodium Tablet] 2 each PO DAILY PRN [History] Budesonide/Formoterol 160/4.5 [Symbicort 160/4.5] 2 puff IH BIDR 04/15/17 [ History] HYDROcodone/Acet 7.5/325 mg [[place] 7.5-325 mg] 1 tab PO Q6H PRN 04/15/17 [ History] Insulin Degludec [Tresiba Flextouch U-200] 10 unit SQ DAILY 04/15/17 [History] Pregabalin [Lyrica] 75 mg PO BID 04/15/17 [History] hydrALAZINE [HydrALAZINE] 25 mg PO BID 04/15/17 [History] metOLazone [Zaroxolyn] 5 mg PO DAILY 04/15/17 [History] Aspirin [Lo-Dose Aspirin EC] 81 mg PO DAILY 04/16/17 [History] Calcium Carbonate/Vitamin D3 [Calcium 500-Vit D3 200 Caplet] 1 tab PO DAILY [History] Esomeprazole Magnesium [Nexium] 40 mg PO DAILY 04/16/17 [History] Glimepiride [Amaryl] 1 mg PO DAILY 04/16/17 [History] Oxybutynin [Ditropan] 5 mg PO DAILY 04/16/17 [History] Pantoprazole Sodium 40 mg PO DAILY 04/16/17 [History] Potassium Chloride [Klor-Con 10] 10 meq PO DAILY 04/16/17 [History] Primidone [Mysoline] 50 mg PO DAILY 04/16/17 [History] Allergies/Adverse Reactions: 3 Allergy/AdvReac Type Severity Reaction Status Date / Time azithromycin [From Zithromax] Allergy Hives Verified 12/04/16 15:18 Erythromycin Base Allergy Hives Verified 12/04/16 15:18 levofloxacin Allergy See Verified 12/04/16 15:18 Comments lisinopril Allergy See Verified 04/15/17 17:40 Comments sulfamethoxazole Allergy Hives Verified 12/04/16 15:18 [From Bactrim] trazodone Allergy Hives Verified 12/04/16 15:18 trimethoprim [From Bactrim] Allergy Hives Verified 12/04/16 15:18 tuberculin,PPD,multi-puncture Allergy See Verified 12/02/16 20:20 Comments Pneumococcal Vaccine AdvReac Hallucinati Verified 12/02/16 20:20 ng Certification: Further, I certify that my clinical findings support that this patient is homebound (i.e. absences from home require considerable and taxing effort and are for medical reasons or congregation services or infrequently or short duration when for other reasons) because: Homebound Reason: Patient requires assistance of a person or device to safely leave home Attestation: My signature below is to certify that this patient is under my care and that I, or nurse practitioner, or a physician's oceanographer assistant working with me, has a face-to -face encounter with this patient.
== END 2017-04-19 14:37 | disposition home or self-care (01) | DRG 812 ==
LOC: 2NNU → SUATTDRO 23:12
PROVIDERS: ADMIT Family Medicine; ATTEND Internal Medicine
PROC: ENDOEBX (2017-04-18 14:00)
PROC: ENDOCBX (2017-04-18 14:00)

== ENCOUNTER 2017-06-17 02:39 | Inpatient (IN) ==
[~2017-06-17 02:39] MED LIST: Naloxone 0.4 MG/ML INJ IVP PRN; Ondansetron 4 MG/2 ML VIAL IVP PRN
[2017-06-17] MEDS ORDERED: D5% in Water 1,000 ML IVC PRN (02:43)
[2017-06-17] MEDS ORDERED: *HR* Dextrose 50 % in Water (Syg) 50 ML SYRINGE IVP PRN (02:43)
[2017-06-17] MEDS ORDERED: Dextrose Gel 15 GM PO PRN ×2 (02:43)
[2017-06-17] MEDS ORDERED: 0.9 % Sodium Chloride 1,000 ML IVC SCH (02:45)
[2017-06-17 03:24] LABS: Basophils % 0.2 %; Immature Granulocytes % 0.5 % (0-4)
[2017-06-17 03:26] LABS: Eosinophils % 0.1 %; Hematocrit 18.2 % (35.3-44.9); Lymphocytes # 1.9 K/mcL (0.6-4.6); Lymphocytes % 16.8 %; Mean Corpuscular HGB Conc 30.2 g/dL (31.6-35.5); Mean Corpuscular Hemoglobin 25.3 pg (28.0-33.3); Mean Corpuscular Volume 83.9 fL (83.0-100.0); Mean Platelet Volume 12.5 fL (9.4-12.4); Monocytes # 0.6 K/mcL (0.0-1.3); Neutrophils # 8.9 K/mcL (1.6-8.9); Platelet Count 168 K/mcL (140-400); Red Blood Count 2.17 M/mcL (3.82-4.97); Red Cell Distribution Width 17.5 % (11.5-14.5); Segmented Neutrophils % 77.4 %
[2017-06-17 03:36] LABS: Calcium 8.1 mg/dL (8.6-10.8); Magnesium 1.8 mg/dL (1.6-2.6); Potassium 3.6 mEq/L (3.5-4.5)
[2017-06-17 03:39] LABS: Hemoglobin 5.5 g/dL (11.5-15.4)
--- NOTE | 2017-06-17 04:04 | Internal Med History&Physical ---
Date of Encounter: 06/17/17 Time of Encounter: 01:35 Assessment and Plan (1) Anemia Current visit: No Status: Acute Patient has anemia need repeat transfusion. Has black vomiting and black stool. Need to rule out GI bleeding. Previous anemia workup shows severe iron deficiency. - We will give 3 units PRBC transfusion. - Consult GI Qualifiers: Anemia type: iron deficiency Iron deficiency anemia type: chronic blood loss Qualified Code(s): D50.0 - Iron deficiency anemia secondary to blood loss (chronic) (2) Diabetes Current visit: No Status: Chronic Cover patient with sliding scale Qualifiers: Diabetes mellitus type: type 2 Diabetes mellitus complication status: with kidney complications Diabetes mellitus complication detail: with chronic kidney disease Diabetes mellitus long term care administrator insulin use: without long term care administrator use Chronic kidney disease stage: stage 3 (moderate) Qualified Code(s): E11.22 - Type 2 diabetes mellitus with diabetic chronic kidney disease; N18.3 - Chronic kidney disease, stage 3 (moderate) (3) Chronic kidney disease Current visit: No Status: Chronic Stable. Creatinine at baseline Qualifiers: Chronic kidney disease stage: stage 3 (moderate) Qualified Code(s): N18.3 - Chronic kidney disease, stage 3 (moderate) (4) Upper GI bleeding Current visit: No Status: Acute Suspect upper GI bleeding. - Keep patient nothing by mouth, IV fluid. - Closely monitor vitals and H&H - 3 unit PRBC transfusion - IV PPI - GI consult (5) DVT prophylaxis Current visit: No Status: Acute EPCD (6) UTI (urinary tract infection) Current visit: No Status: Acute Rocephin IV. Follow-up urine culture Qualifiers: Urinary tract infection type: acute cystitis Hematuria presence: without hematuria Qualified Code(s): N30.00 - Acute cystitis without hematuria Internal Medicine - H&P: HPI Chief complaint: Abdominal pain Admitted From: Home Plans for Post Hospital Care: Home History of present illness: Ms. Be is a 82 year old female with a history of diabetes, CKD, anemia needed repeatedly transfusion, presented to [facility] for abdominal pain. Patient said the pain located on upper abdominal area, dull, started from several days ago. Patient has nausea. Patient has vomited today. The vomiting is dark. Patient also complained dark stool. Patient has no fever. Patient had 1 transfusion on Saturday and hemoglobin increased to 8.2 after transfusion. However, her hemoglobin dropped to 5.5 today. In [place] the emergency room, CT abdomen unremarkable, UA shows UTI. Patient was transferred to our hospital for further management. Past Med Surg Social Fam HX - Past Medical History Medical history: arthritis, atrial fibrillation, CHF, diabetes, GERD, glaucoma, hyperlipidemia, hypertension, osteoporosis, renal disease Psychiatric history: no psych history - Past Surgical History Surgical History: cholecystectomy, knee replacement, orthopedic, other - Social History Smoking Status: Never smoker Smokeless Tobacco Status: No Alcohol use: none Drug use: none - Family History Mother Adopted: [place]: Alf Us Family Member Ethnicity: Non- Living Status: Cause of : cirrhosis of the liver Hx Family Cardiac Disorders: No Hx Family Respiratory Disorders: No Hx Family Cancer: No Hx Family GI Disorders: No Hx Family Genitourinary Disorders: No Hx Family Endocrine Disorder: Yes Daughter Adopted: No Living Status: Still Living Hx Family Cardiac Disorders: No Hx Family Respiratory Disorders: No Hx Family Cancer: No Hx Family GI Disorders: No Hx Family Endocrine Disorder: Yes (History of diet controlled diabetes after gastric bypass surgery) Hx Family Neuromuscular Disorders: No Hx Family Neurologic Disorders: No Hx Family HEENT Disorders: No Hx Family Autoimmune Disorders: No Internal Medicine - H&P: Meds Sertraline [Zoloft] 25 mg PO DAILY 05/24/15 [History] LORazepam [Ativan] 0.5 mg PO QID 12/21/15 [History] Cholecalciferol (D-3) [Vitamin D] 50,000 unit PO QWEEK 02/25/16 [History] Latanoprost [Xalatan] 1 drop BOTH EYES HS 02/25/16 [History] Albuterol Sulfate [Proair Respiclick] 2 puff IH Q4H PRN 05/16/16 [History] Rosuvastatin Calcium [Crestor] 10 mg PO DAILY 05/16/16 [History] Ipratropium/Albuterol Neb [Duoneb] 3 ml IH Q6HR 07/27/16 [History] Loratadine [Allergy Relief] 10 mg PO DAILY 01/14/17 [History] Sennosides/Docusate Sodium [Senna-Docusate Sodium Tablet] 2 each PO DAILY PRN [History] Budesonide/Formoterol 160/4.5 [Symbicort 160/4.5] 2 puff IH BIDR 04/15/17 [ History] HYDROcodone/Acet 7.5/325 mg [[place] 7.5-325 mg] 1 tab PO Q6H PRN 04/15/17 [ History] Insulin Degludec [Tresiba Flextouch U-200] 10 unit SQ DAILY 04/15/17 [History] Pregabalin [Lyrica] 75 mg PO BID 04/15/17 [History] hydrALAZINE [HydrALAZINE] 25 mg PO BID 04/15/17 [History] metOLazone [Zaroxolyn] 5 mg PO DAILY 04/15/17 [History] Aspirin [Lo-Dose Aspirin EC] 81 mg PO DAILY 04/16/17 [History] Calcium Carbonate/Vitamin D3 [Calcium 500-Vit D3 200 Caplet] 1 tab PO DAILY [History] Esomeprazole Magnesium [Nexium] 40 mg PO DAILY 04/16/17 [History] Glimepiride [Amaryl] 1 mg PO DAILY 04/16/17 [History] Oxybutynin [Ditropan] 5 mg PO DAILY 04/16/17 [History] Pantoprazole Sodium 40 mg PO DAILY 04/16/17 [History] Potassium Chloride [Klor-Con 10] 10 meq PO DAILY 04/16/17 [History] Primidone [Mysoline] 50 mg PO DAILY 04/16/17 [History] 3 Allergy/AdvReac Type Severity Reaction Status Date / Time azithromycin [From Zithromax] Allergy Hives Verified 06/16/17 19:20 Erythromycin Base Allergy Hives Verified 06/16/17 19:20 levofloxacin Allergy See Verified 06/16/17 19:20 Comments lisinopril Allergy See Verified 06/16/17 19:20 Comments sulfamethoxazole Allergy Hives Verified 06/16/17 19:20 [From Bactrim] trazodone Allergy Hives Verified 06/16/17 19:20 trimethoprim [From Bactrim] Allergy Hives Verified 06/16/17 19:20 tuberculin,PPD,multi-puncture Allergy See Verified 06/16/17 19:20 Comments Pneumococcal Vaccine AdvReac Hallucinati Verified 06/16/17 19:20 ng All Systems PM: A 10-system review of systems was performed and is negative for pertinent findings except as documented above in the HPI. - Constitutional Vitals: Temp Pulse Resp BP Pulse Ox 97.3 F L 80 17 94/53 100 06/17/17 02:10 06/17/17 02:10 06/17/17 02:10 06/17/17 02:10 06/17/17 02:10 General appearance: Present: A&O X 3, no acute distress, answers questions appropriately - Head Head exam: Present: atraumatic, normocephalic - Eye Eye exam: Present: PERRL, conjuntiva pink, sclera anicteric Pupils: Present: PERRL - Neck Neck exam general surgery: Present: supple, trachea midline. Absent: lymphadenopathy - Respiratory Respiratory exam: Present: CTAB. Absent: accessory muscle use, rales, rhonchi, wheezes - Cardiovascular Cardiovascular exam: Present: RRR, +S1, +S2. Absent: diastolic murmur, gallop, rubs, systolic murmur - GI/Abdominal GI/Abdominal exam: Present: normal bowel sounds, soft, tenderness (Mild tenderness on epigastric area), no peritoneal signs. Absent: distended - Extremities Exam Extremities exam: Present: warm, radial pulses palpable and symmetrical. Absent : calf tenderness, cyanotic, pedal edema - Neurological Exam Neurological exam: Present: CN II-XII intact, oriented X3, no focal deficits. Absent: pronater drift, facial droop, speech deficit - Skin Skin exam: Present: dry, intact Internal Med - H&P Results - Labs CBC & Chem 7: 06/17/17 03:09 06/17/17 03:09 Labs: Short CBC 06/17/17 Range/Units 03:09 WBC 11.5 H (4.3-11.1) K/mcL Hgb 5.5 L* D (11.5-15.4) g/dL Hct 18.2 L (35.3-44.9) % Plt Count 168 (140-400) K/mcL BMP 06/17/17 03:09 Sodium 132 L Potassium 3.6 Chloride 100 Carbon Dioxide 22 BUN 64 H Creatinine 1.30 H Glucose 318 H Calcium 8.1 L Cardiac Enzymes 06/17/17 Range/Units 03:09 Troponin I 0.05 H* (0-0.03) ng/mL - EKG Data -: EKG Interpreted by Myself EKG shows normal: sinus rhythm Rate: normal
[2017-06-17 04:21] LABS: Hypochromasia Present (Not Present)
[2017-06-17 04:22] LABS: Anisocytosis 1+ (Not Present); Microcytosis Present (Not Present); Platelet Estimate Normal (Normal)
[2017-06-17] MEDS ORDERED: Ipratropium/Albuterol Neb 3 ML IH PRN (05:21)
[2017-06-17] MEDS: Insulin LISPRO 300 UNITS/3 ML VIAL SQ SCH ×3 (05:36→18:40)
[2017-06-17] MEDS: Pantoprazole 40 MG VIAL IVP SCH ×2 (05:36→17:46)
[2017-06-17] MEDS ORDERED: 0.9 % Sodium Chloride 250 ML ONE ×2 (05:57→10:34)
[2017-06-17] MEDS: cefTRIAXone 1,000 MG in Water for inj. (sterile) 10 ML IVP SCH (10:23)
--- NOTE | 2017-06-17 10:40 | Gastroenterology Consult Note ---
<Chiquita Rea M - Last Filed: 06/17/17 10:57> Date of Encounter: 06/17/17 Time of Encounter: 10:14 - Assessment and plan (1) Anemia Current Visit: Yes Status: Acute Assessment and plan: Pt presents with anemia and upper abdominal pain. Hgb has dropped to 5.5 today. She is receiving PRBC infusions. She has had coffee ground emesis and dark stools. She had similiar episodes in December and March of this year. She had negative EGD/Colonoscopy 04/14. She is complaining of epigastric pain. She has been NPO will proceed with EGD today. She may need repeat colonoscopy or capsule endoscopy as an outpatient. Qualifiers: Anemia type: iron deficiency Iron deficiency anemia type: chronic blood loss Qualified Code(s): D50.0 - Iron deficiency anemia secondary to blood loss (chronic) (2) Chronic kidney disease Current Visit: Yes Status: Chronic Assessment and plan: Pt has ESRD and followed by nephrology. Qualifiers: Chronic kidney disease stage: stage 3 (moderate) Qualified Code(s): N18.3 - Chronic kidney disease, stage 3 (moderate) (3) Upper GI bleeding Current Visit: Yes Status: Acute Assessment and plan: Needs EGD - Time Spent With Patient Total time spent is greater than 50% in coordination of care (as documented) at patient's floor/unit and/or counseling patient: GI History of Present Illness - Data of Consult Patient: known to practice within the last 3 years Consult date: 06/17/17 Requesting Physician: Destiny Kaye MD - Consult Narrative Reason for consult: anemia/abdominal pain History of present illness: Ms. Be is a 82 year old female PMHx of GERD, DM, CKD 3, ventral wall hernia, glaucoma, HLD, HTn, Osteoporosis. This is her 3rd hospitalization since December for anemia. She presented to [facility] for abdominal pain. She complains of upper abdomen and epigastric pain for several days prior to admission. She also complains of nausea and vomiting with dark coffee ground emesis. She also complained dark of stool. She denies fever, chills or sick contacts. She 1 transfusion on Saturday and hemoglobin increased to 8.2 after transfusion. However, her hemoglobin dropped to 5.[address] abdomen 06/16 was unremarkable. Creat 1.3, gluc 318, calcium 8.1, troponin 0.05. She is NPO. She was seen 04/14 and had a hgb of 3.5 at that time but EGD and colonoscopy did not show active bleeding. Similar episode in 01/12 showed esophagitis with bleeding and schatzki ring was dilated (per Dr Cooper). EGD 04/14 normal Colon 04/14 diverticulosis, one sesile serrated polyp one tubular adenoma, nonbleeding NSAIDS: none Anticoagulants: none Past Med Surg Social Fam HX - Past Medical History Medical history: arthritis, atrial fibrillation, CHF, diabetes, GERD, glaucoma, hyperlipidemia, hypertension, osteoporosis, renal disease Psychiatric history: no psych history - Past Surgical History Surgical History: cholecystectomy, knee replacement, orthopedic, other - Social History Smoking Status: Never smoker Smokeless Tobacco Status: No Alcohol use: none Drug use: none - Family History Mother Adopted: [place]: Alf Us Family Member Ethnicity: Non- Living Status: Cause of : cirrhosis of the liver Hx Family Cardiac Disorders: No Hx Family Respiratory Disorders: No Hx Family Cancer: No Hx Family GI Disorders: No Hx Family Genitourinary Disorders: No Hx Family Endocrine Disorder: Yes Daughter Adopted: No Living Status: Still Living Hx Family Cardiac Disorders: No Hx Family Respiratory Disorders: No Hx Family Cancer: No Hx Family GI Disorders: No Hx Family Endocrine Disorder: Yes (History of diet controlled diabetes after gastric bypass surgery) Hx Family Neuromuscular Disorders: No Hx Family Neurologic Disorders: No Hx Family HEENT Disorders: No Hx Family Autoimmune Disorders: No Review of Systems: GI: as per [place] GENERAL: denies fever, has some chills EYES: denies yellow discoloration ENT: denies pain with swallowing or difficulty swallowing CARDIO: denies chest pain, palpitations RESP: Shortness of breath with exertion : denies change in color of urine NEURO: denies any weakness HEME: Denies any bruising MS: denies joint pain, joint swelling or back pain. DERM: denies rash or itching PSYCH: Denies history of anxiety or depression - Constitutional Vitals: Temp Pulse Resp BP Pulse Ox 97.5 F L 74 18 136/65 91 06/17/17 10:15 06/17/17 10:15 06/17/17 10:15 06/17/17 10:15 06/17/17 10:15 Exam: CONSTITUTIONAL:~alert, no acute distress.~HEAD:~normocephalic.~EYES:~no jaundice.~NECK:~no obvious swelling.~HEART:~regular rate and rhythm, no murmurs. ~LUNGS:~bilateral good air entry.~ABDOMEN:~non distended, soft, tender upper quadrants, ventral hernia palpable, no organomegaly.~RECTAL EXAM:~Deferred.~ EXTREMITIES:~no clubbing, cyanosis or edema.~SKIN:~no stigmata of chronic liver disease.~NEUROLOGIC:~no obvious focal defect.~~~~ Results - Labs CBC & Chem 7: 06/17/17 03:09 06/17/17 03:09 Labs: Last Result Calcium 8.1 mg/dL (8.6-10.8) L 06/17/17 03:09 Troponin I 0.05 ng/mL (0-0.03) H* 06/17/17 03:09 Entire Visit Hgb 5.5 g/dL (11.5-15.4) L* D 06/17/17 03:09 Hct 18.2 % (35.3-44.9) L 06/17/17 03:09 Consult Discharge Plan - Plan Referrals: Ernst Mojica MD [Primary Care Provider] - <Ángel Fraser - Last Filed: 06/17/17 17:54> Date of Encounter: 06/17/17 Time of Encounter: 14:20 - Time Spent With Patient Total time spent is greater than 50% in coordination of care (as documented) at patient's floor/unit and/or counseling patient: GI History of Present Illness - Data of Consult Requesting Physician: Destiny Kaye MD - Consult Narrative History of present illness: Ms. Be is a 82 year old female - Constitutional Vitals: Temp Pulse Resp BP Pulse Ox 98.6 F 90 18 126/73 99 06/17/17 17:09 06/17/17 17:09 06/17/17 17:09 06/17/17 17:09 06/17/17 17:09 Results - Labs CBC & Chem 7: 06/17/17 17:21 06/17/17 03:09 Labs: Last Result Calcium 8.1 mg/dL (8.6-10.8) L 06/17/17 03:09 Troponin I 0.05 ng/mL (0-0.03) H* 06/17/17 03:09 Entire Visit Hgb 8.5 g/dL (11.5-15.4) L D 06/17/17 17:21 Hct 25.8 % (35.3-44.9) L 06/17/17 17:21 - Attending Attestation I examined this patient and my medical decision-making was reviewed with the Resident Physician. I agree with the documented findings, disposition and treatment plan as described except to the extent set forth below.
--- NOTE | 2017-06-17 12:23 | Anesthesia Evaluation PreOp ---
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 HX Other Medical History: Renal (CKD 3), GERD, Other (glaucoma, Upper GI bleed) Anesthesia History: No Prior Anesthetic Complications, Past Anesthesia (serenity, TKA, EGD/c-scope 04/14) : No Alcohol Use: none Drug use: none Medications and Allergies Sertraline [Zoloft] 25 mg PO DAILY 05/24/15 [History] LORazepam [Ativan] 0.5 mg PO QID 12/21/15 [History] Cholecalciferol (D-3) [Vitamin D] 50,000 unit PO QWEEK 02/25/16 [History] Latanoprost [Xalatan] 1 drop BOTH EYES HS 02/25/16 [History] Albuterol Sulfate [Proair Respiclick] 2 puff IH Q4H PRN 05/16/16 [History] Rosuvastatin Calcium [Crestor] 10 mg PO DAILY 05/16/16 [History] Ipratropium/Albuterol Neb [Duoneb] 3 ml IH Q6HR 07/27/16 [History] Loratadine [Allergy Relief] 10 mg PO DAILY 01/14/17 [History] Sennosides/Docusate Sodium [Senna-Docusate Sodium Tablet] 2 each PO DAILY PRN [History] Budesonide/Formoterol 160/4.5 [Symbicort 160/4.5] 2 puff IH BIDR 04/15/17 [ History] HYDROcodone/Acet 7.5/325 mg [[place] 7.5-325 mg] 1 tab PO Q6H PRN 04/15/17 [ History] Insulin Degludec [Tresiba Flextouch U-200] 10 unit SQ DAILY 04/15/17 [History] Pregabalin [Lyrica] 75 mg PO BID 04/15/17 [History] hydrALAZINE [HydrALAZINE] 25 mg PO BID 04/15/17 [History] metOLazone [Zaroxolyn] 5 mg PO DAILY 04/15/17 [History] Aspirin [Lo-Dose Aspirin EC] 81 mg PO DAILY 04/16/17 [History] Calcium Carbonate/Vitamin D3 [Calcium 500-Vit D3 200 Caplet] 1 tab PO DAILY [History] Esomeprazole Magnesium [Nexium] 40 mg PO DAILY 04/16/17 [History] Glimepiride [Amaryl] 1 mg PO DAILY 04/16/17 [History] Oxybutynin [Ditropan] 5 mg PO DAILY 04/16/17 [History] Pantoprazole Sodium 40 mg PO DAILY 04/16/17 [History] Potassium Chloride [Klor-Con 10] 10 meq PO DAILY 04/16/17 [History] Primidone [Mysoline] 50 mg PO DAILY 04/16/17 [History] 3 Allergy/AdvReac Type Severity Reaction Status Date / Time azithromycin [From Zithromax] Allergy Hives Verified 06/16/17 19:20 Erythromycin Base Allergy Hives Verified 06/16/17 19:20 levofloxacin Allergy See Verified 06/16/17 19:20 Comments lisinopril Allergy See Verified 06/16/17 19:20 Comments sulfamethoxazole Allergy Hives Verified 06/16/17 19:20 [From Bactrim] trazodone Allergy Hives Verified 06/16/17 19:20 trimethoprim [From Bactrim] Allergy Hives Verified 06/16/17 19:20 tuberculin,PPD,multi-puncture Allergy See Verified 06/16/17 19:20 Comments Pneumococcal Vaccine AdvReac Hallucinati Verified 06/16/17 19:20 ng - Meds/Allergy Pre-op Review Medications Reviewed: Yes Allergies Reviewed: Yes Beta Blockers on Current Med List: No Anesthesia Results - Labs 06/17/17 03:09 06/17/17 03:09 - Imaging EKG: report reviewed (SINUS RHYTHM LEFT ANTERIOR FASCICULAR BLOCK NONSPECIFIC ST & T-WAVE ABNORMALITY) Anesthesia Exam Selected Entries 06/17/17 11:09 Temperature 98.2 F Pulse Rate 80 Respiratory Rate 14 Blood Pressure 108/47 Blood Pressure Mean 67 O2 Sat by Pulse Oximetry 97 Weight: 108kg - HEENT Pupil (Motor): EOMI Mallampati: II Teeth: Edentulous Oral Opening: Greater than 3 - [employer]NER LOC: Oriented [employer] Motor: Normal RUE, Normal LUE, Normal RLE, Normal LLE, Normal Face [employer]NER Sensory: Normal: RUE, LUE, RLE, LLE, Face - Cardiac Rhythm: Regular Murmur: None - Pulmonary Breath Sounds: bilateral Clear Respiratory Effort: Symmetrical Anesthesia Assess/Plan ASA Score: 3 Modified [place] Scale for Level of Consciousness: Cooperative, oriented, and tranquil Anesthetic Plan: MAC Monitoring Plan: Standard Monitors Recovery Plan: Other (discussed MAC, agrees to proceed)
[2017-06-17] MEDS ORDERED: *HR* Propofol 200 MG/20 ML VIAL IVP ONE (14:48)
[2017-06-17] MEDS ORDERED: Tetracaine/Benzocaine/Butamben 200MG/SPRAY (100SPY/BOT) MM ONE (15:10)
[2017-06-17] MEDS ORDERED: Furosemide 20 MG/2 ML VIAL IVP ONE ×2 (15:22→15:43)
--- NOTE | 2017-06-17 17:08 | Internal Med Progress Note ---
Date of Encounter: 06/17/17 Time of Encounter: 17:06 - Assessment and plan (1) Acute blood loss anemia Current Visit: No Status: Acute Assessment and plan: s/p 2 U PRBC will check CBC now If Hb still below 8 will give another U PRBC Gave one lasix now will give another Lasix after 3rd U PRBC (2) Esophagitis Current Visit: Yes Status: Acute Assessment and plan: s/p EGD - showed severe esophagitis recommend PPI BID + Carafate (3) Hiatal hernia Current Visit: Yes Status: Acute (4) Upper GI bleeding Current Visit: Yes Status: Acute (5) UTI (urinary tract infection) Current Visit: No Status: Acute Assessment and plan: on Rocephin will f/u on Urine cx Qualifiers: Urinary tract infection type: acute cystitis Hematuria presence: without hematuria Qualified Code(s): N30.00 - Acute cystitis without hematuria - Subjective Interval history: Ms. Be is a 82 year old female with a history of diabetes, CKD, anemia needed repeatedly transfusion, presented to [facility] for abdominal pain. Patient said the pain located on upper abdominal area, dull, started from several days ago. Patient has nausea. Patient has vomited today. The vomiting is dark. Patient also complained dark stool. Patient has no fever. Patient had 1 transfusion on Saturday and hemoglobin increased to 8.2 after transfusion. However, her hemoglobin dropped to 5.5 today. Pt just came back from EGD. Now she is alert, awake and O x3. Denied any CP . Still has some SOB. - Constitutional Vitals: Temp Pulse Resp BP Pulse Ox 99.1 F 83 20 126/72 96 06/17/17 16:01 06/17/17 16:01 06/17/17 16:01 06/17/17 16:01 06/17/17 16:01 General appearance: Present: A&O X 3, no acute distress, answers questions appropriately - Head Head exam: Present: atraumatic, normal inspection - Neck Neck exam general surgery: Present: supple - Respiratory Respiratory exam: Present: decreased breath sounds. Absent: rales, respiratory distress, rhonchi, wheezes - Cardiovascular Cardiovascular exam: Present: RRR, +S1, +S2. Absent: tachycardia - GI/Abdominal GI/Abdominal exam: Present: normal bowel sounds, soft. Absent: rebound, rigid, tenderness - Extremities Exam Extremities exam: Absent: calf tenderness, pedal edema, tenderness - Back Exam Back exam: Absent: CVA tenderness (L), CVA tenderness (R) - Neurological Exam Neurological exam: Present: alert, oriented X3 - Psychiatric Psychiatric exam: Present: normal affect, normal mood Internal Medicine: Result - Labs CBC & Chem 7: 06/17/17 03:09 06/17/17 03:09 Labs: Short CBC 06/17/17 Range/Units 03:09 WBC 11.5 H (4.3-11.1) K/mcL Hgb 5.5 L* D (11.5-15.4) g/dL Hct 18.2 L (35.3-44.9) % Plt Count 168 (140-400) K/mcL Neutrophils # 8.9 (1.6-8.9) K/mcL BMP 06/17/17 03:09 Sodium 132 L Potassium 3.6 Chloride 100 Carbon Dioxide 22 BUN 64 H Creatinine 1.30 H Glucose 318 H Calcium 8.1 L Cardiac Enzymes 06/17/17 Range/Units 03:09 Troponin I 0.05 H* (0-0.03) ng/mL - VTE Documentation of Mechanical Device: Intermittent pneumatic compression device Consult Discharge Plan - Plan Referrals: Ernst Mojica MD [Primary Care Provider] -
[2017-06-17 17:40] LABS: Basophils # 0.1 K/mcL (0.0-0.2); Basophils % 0.6 %; Eosinophils # 0.2 K/mcL (0.0-0.6); Eosinophils % 1.7 %; Hematocrit 25.8 % (35.3-44.9); Immature Granulocytes % 0.6 % (0-4); Lymphocytes # 1.9 K/mcL (0.6-4.6); Lymphocytes % 17.5 %; Mean Corpuscular HGB Conc 32.9 g/dL (31.6-35.5); Mean Corpuscular Hemoglobin 26.3 pg (28.0-33.3); Mean Corpuscular Volume 79.9 fL (83.0-100.0); Mean Platelet Volume 12.1 fL (9.4-12.4); Monocytes # 0.6 K/mcL (0.0-1.3); Monocytes % 5.5 %; Platelet Count 130 K/mcL (140-400); Red Blood Count 3.23 M/mcL (3.82-4.97); Red Cell Distribution Width 15.4 % (11.5-14.5); Segmented Neutrophils % 74.1 %
[2017-06-17 17:42] LABS: Hemoglobin 8.5 g/dL (11.5-15.4)
[2017-06-17] MEDS: Acetaminophen 325 MG TABLET PO PRN (18:41)
[2017-06-18] MEDS: Insulin LISPRO 300 UNITS/3 ML VIAL SQ SCH ×4 (01:28→16:51)
[2017-06-18 06:19] LABS: Basophils # 0.1 K/mcL (0.0-0.2); Basophils % 0.8 %; Eosinophils # 0.3 K/mcL (0.0-0.6); Hematocrit 20.4 % (35.3-44.9); Immature Granulocytes % 0.3 % (0-4); Lymphocytes # 1.9 K/mcL (0.6-4.6); Mean Corpuscular HGB Conc 31.9 g/dL (31.6-35.5); Mean Corpuscular Hemoglobin 26.1 pg (28.0-33.3); Mean Corpuscular Volume 81.9 fL (83.0-100.0); Mean Platelet Volume 11.2 fL (9.4-12.4); Monocytes # 0.4 K/mcL (0.0-1.3); Monocytes % 6.9 %; Neutrophils # 3.6 K/mcL (1.6-8.9); Platelet Count 101 K/mcL (140-400); Red Blood Count 2.49 M/mcL (3.82-4.97); Red Cell Distribution Width 15.6 % (11.5-14.5)
[2017-06-18] MEDS: Pantoprazole 40 MG VIAL IVP SCH ×2 (06:27→17:27)
[2017-06-18 06:31] LABS: Calcium 7.9 mg/dL (8.6-10.8); Magnesium 1.7 mg/dL (1.6-2.6); Potassium 3.2 mEq/L (3.5-4.5)
[2017-06-18 06:35] LABS: Hemoglobin 6.5 g/dL (11.5-15.4)
[2017-06-18] MEDS: cefTRIAXone 1,000 MG in Water for inj. (sterile) 10 ML IVP SCH (08:08)
[2017-06-18] MEDS ORDERED: *HR* LORazepam 0.5 MG TABLET PO PRN (08:12)
[2017-06-18] MEDS ORDERED: Sennosides/Docusate Sodium TABLET PO PRN (08:12)
[2017-06-18 08:41] LABS: Hematocrit 20.9 % (35.3-44.9); Hemoglobin 6.6 g/dL (11.5-15.4)
[2017-06-18] MEDS ORDERED: 0.9 % Sodium Chloride 250 ML ONE ×2 (09:33→13:47)
[2017-06-18] MEDS: Ipratropium/Albuterol Neb 3 ML IH SCH ×3 (10:35→21:45)
[2017-06-18] MEDS: Budesonide/Formoterol 160/4.5 MDI IH SCH ×2 (10:35→21:46)
--- NOTE | 2017-06-18 11:00 | Gastroenterology Progress Note ---
Date of Encounter: 06/18/17 Time of Encounter: 10:58 - Assessment and plan (1) Anemia Current Visit: Yes Status: Acute Assessment and plan: Presented anemia, hemoglobin of 5.5 and coffee-ground emesis. Patient was given 2 units transfusion and her hemoglobin went up to 8.7 EGD showed LA grade D reflux esophagitis and large hiatal hernia. Patient was placed on PPI twice a day and Carafate liquid 4 times a day. Overnight patient's hemoglobin dropped to 6.5. Plan will be to have patient undergo push enteroscopy tomorrow. Nothing by mouth midnight. Qualifiers: Anemia type: iron deficiency Iron deficiency anemia type: chronic blood loss Qualified Code(s): D50.0 - Iron deficiency anemia secondary to blood loss (chronic) (2) Reflux esophagitis Current Visit: Yes Status: Acute Assessment and plan: Continue Protonix twice a day and Carafate liquid 4 times a day. (3) Upper GI bleeding Current Visit: Yes Status: Acute Assessment and plan: Plan as above. - Time Spent With Patient Total time spent is greater than 50% in coordination of care (as documented) at patient's floor/unit and/or counseling patient: - Subjective Interval history: Patient's hemoglobin dropped from 8.5-6.6 overnight. Patient denies any abdominal pain, nausea, vomiting. She does state that her throat is sore after having the EGD yesterday. - Constitutional Vitals: Temp Pulse Resp BP Pulse Ox 98.2 F 71 20 100/60 97 06/18/17 10:00 06/18/17 10:00 06/18/17 10:00 06/18/17 10:00 06/18/17 10:00 - Other Additional findings: General: Pleasant without distress Mouth: Moist Mucous Membranes, no erythema Heart: Regular rate and rhythm with no murmur Lungs: wheezing b/l Abdomen: Soft nontender, nondistended positive bowel sounds Skin: warm and dry Extremities: Absent pedal edema, Vascular: Pedal and radial pulses 2 out of 4 Results - Labs CBC & Chem 7: 06/18/17 08:21 06/18/17 06:06 Labs: Last Result Calcium 7.9 mg/dL (8.6-10.8) L 06/18/17 06:06 Troponin I 0.05 ng/mL (0-0.03) H* 06/17/17 17:21 Entire Visit Hgb 6.6 g/dL (11.5-15.4) L 06/18/17 08:21 Hct 20.9 % (35.3-44.9) L 06/18/17 08:21 - VTE Documentation of Mechanical Device: Intermittent pneumatic compression device Consult Discharge Plan - Plan Referrals: Ernst Mojica MD [Primary Care Provider] -
[2017-06-18] MEDS: Acetaminophen 325 MG TABLET PO PRN ×2 (11:42→18:34)
[2017-06-18] MEDS ORDERED: Polyethylene Glycol 3350 255 GM POWDER PO ONE (13:27)
--- NOTE | 2017-06-18 13:42 | Internal Med Progress Note ---
<Janice Walton - Last Filed: 06/18/17 15:23> Date of Encounter: 06/18/17 Time of Encounter: 08:30 - Assessment and plan (1) Upper GI bleeding Current Visit: Yes Status: Acute Assessment and plan: -EGD showed mild bleeding/oozing of LA grade D reflux esophagitis -Hgb after transfusions yesterday 8.5, drop to 6.6 this morning--1st unit pRBC to tansfuse this morning -will check Hgb/Hct Q12H, starting 1 hour after 2nd unit pRBC finishes transfusing today -GI consulted and plans for push enteroscopy tomorrow; further recommendations appreciated (2) Esophagitis Current Visit: Yes Status: Acute Assessment and plan: -s/p EGD showing LA grade D esophagitis with mild bleeding/oozing; hiatal hernia -carafate 4x QID AC and 40mg IV BID (3) Anemia Current Visit: Yes Status: Acute Assessment and plan: -initially presented with Hgb 5.5, coffee ground emesis, dark stool -yesterday 2 units pRBCs transfused, Hgb maricarmen to 8.5, dropped this morning to 6.6 -EGD findings as above -transfusing 1st unit pRBC out of 2; will check Hgb/Hct 1 hour after 2nd unit transfusion completed Qualifiers: Anemia type: iron deficiency Iron deficiency anemia type: chronic blood loss Qualified Code(s): D50.0 - Iron deficiency anemia secondary to blood loss (chronic) (4) CKD (chronic kidney disease) stage 3, GFR 30-59 ml/min Current Visit: Yes Status: Chronic Assessment and plan: -creatinine 1.31 today, appears to be at baseline for this patient -will continue to monitor creatinine -monitoring I's & O's (5) Hiatal hernia Current Visit: Yes Status: Acute Assessment and plan: -seen on EGD, as described above (6) DVT prophylaxis Current Visit: Yes Status: Acute Assessment and plan: -no chemical prophylaxis d/t blood loss anemia -SCDs (7) Diabetes mellitus type 2 in obese Current Visit: Yes Status: Acute Assessment and plan: -sliding scale insulin, low corrective dose -Q6H POC glucose checks (8) UTI (urinary tract infection) Current Visit: Yes Status: Acute Assessment and plan: -preliminary urine culture shows gram positive cocci, awaiting final report for identification and sensitivity -IV rocephin day 2 -asymptomatic, afebrile -plan to d/c martinez today Qualifiers: Urinary tract infection type: site unspecified Hematuria presence: without hematuria Qualified Code(s): N39.0 - Urinary tract infection, site not specified - Subjective Interval history: Patient seen and examined this morning at bedside; she is sitting comfortably in bed and in no acute distress. Patient feels ok today and is without complaints this morning. She denies chest pain, dyspnea, abdominal pain, nausea , coffee ground emesis, melena, hematochezia. - Constitutional Vitals: Temp Pulse Resp BP Pulse Ox 98.0 F 75 18 111/66 97 06/18/17 13:06 06/18/17 13:06 06/18/17 13:06 06/18/17 13:06 06/18/17 13:06 General appearance: Present: A&O X 3, no acute distress, answers questions appropriately Exam: Gen.: Vitals noted. No acute distress. HEENT: EOMI, Normocephalic, atraumatic, MMM Neck: Supple. Cardiac: RRR, no murmur, +S1/S2 Pulmonary: no wheezes, no rales, equal chest rise Abdomen: soft, nontender, BS noted Neuro: A&Ox3, moves all extremities, no focal deficits Psych: Appropriate mood and behavior Internal Medicine: Result - Labs CBC & Chem 7: 06/18/17 08:21 06/18/17 06:06 Labs: Short CBC 06/17/17 06/18/17 06/18/17 Range/Units 17:21 06:06 08:21 WBC 10.8 6.4 (4.3-11.1) K/mcL Hgb 8.5 L D 6.5 L D 6.6 L (11.5-15.4) g/dL Hct 25.8 L 20.4 L 20.9 L (35.3-44.9) % Plt Count 130 L 101 L (140-400) K/mcL Neutrophils # 8.0 3.6 (1.6-8.9) K/mcL BMP 06/18/17 06:06 Sodium 136 Potassium 3.2 L Chloride 105 Carbon Dioxide 26 BUN 56 H Creatinine 1.31 H Glucose 100 H Calcium 7.9 L Cardiac Enzymes 06/17/17 Range/Units 17:21 Troponin I 0.05 H* (0-0.03) ng/mL - VTE Documentation of Mechanical Device: Intermittent pneumatic compression device Consult Discharge Plan - Plan Referrals: Ernst Mojica MD [Primary Care Provider] - <Angela Alegria - Last Filed: 06/18/17 15:40> Date of Encounter: 06/18/17 Time of Encounter: 13:15 - Constitutional Vitals: Temp Pulse Resp BP Pulse Ox 98.6 F 80 20 112/62 98 06/18/17 14:15 06/18/17 14:15 06/18/17 14:15 06/18/17 14:15 06/18/17 14:15 Internal Medicine: Result - Labs CBC & Chem 7: 06/18/17 08:21 06/18/17 06:06 Labs: Short CBC 06/17/17 06/18/17 06/18/17 Range/Units 17:21 06:06 08:21 WBC 10.8 6.4 (4.3-11.1) K/mcL Hgb 8.5 L D 6.5 L D 6.6 L (11.5-15.4) g/dL Hct 25.8 L 20.4 L 20.9 L (35.3-44.9) % Plt Count 130 L 101 L (140-400) K/mcL Neutrophils # 8.0 3.6 (1.6-8.9) K/mcL BMP 06/18/17 06:06 Sodium 136 Potassium 3.2 L Chloride 105 Carbon Dioxide 26 BUN 56 H Creatinine 1.31 H Glucose 100 H Calcium 7.9 L Cardiac Enzymes 06/17/17 Range/Units 17:21 Troponin I 0.05 H* (0-0.03) ng/mL - Attending Attestation Patient is an 82y/o female admitted for anemia secondary to UGIB and UTI Patient independently seen and examined with family present at bedside. Resting comfortably in bed. Noted to have further drop in H&H. receiving two units PRBC transfusion. Noted to have bibasilar crackles after the first unit, due to which one dose of Lasix 20mg IV given s/p EGD which showed severe esophagitis, given drop in H&H, scheduled for push enteroscopy tomorrow. Continue abx for UTI Case discussed with resident physician Janice Cuello, I agree with her documented findings, assessment, and plan except as listed above.
[2017-06-18] MEDS ORDERED: Furosemide 20 MG/2 ML VIAL IVP ONE (14:00)
[2017-06-18 19:25] LABS: Hematocrit 29.6 % (35.3-44.9); Hemoglobin 9.6 g/dL (11.5-15.4)
[2017-06-19] MEDS: Insulin LISPRO 300 UNITS/3 ML VIAL SQ SCH ×4 (01:13→21:48)
[2017-06-19] MEDS: Ipratropium/Albuterol Neb 3 ML IH SCH ×2 (03:44→10:50)
[2017-06-19 05:14] LABS: Basophils # 0.1 K/mcL (0.0-0.2); Basophils % 0.9 %; Eosinophils # 0.3 K/mcL (0.0-0.6); Eosinophils % 5.9 %; Hematocrit 28.2 % (35.3-44.9); Hemoglobin 9.1 g/dL (11.5-15.4); Immature Granulocytes % 0.5 % (0-4); Lymphocytes # 1.5 K/mcL (0.6-4.6); Lymphocytes % 26.2 %; Mean Corpuscular HGB Conc 32.3 g/dL (31.6-35.5); Mean Corpuscular Hemoglobin 26.8 pg (28.0-33.3); Mean Corpuscular Volume 82.9 fL (83.0-100.0); Mean Platelet Volume 11.8 fL (9.4-12.4); Monocytes # 0.5 K/mcL (0.0-1.3); Monocytes % 9.3 %; Neutrophils # 3.2 K/mcL (1.6-8.9); Platelet Count 113 K/mcL (140-400); Red Cell Distribution Width 15.4 % (11.5-14.5); Segmented Neutrophils % 57.2 %
[2017-06-19 05:27] LABS: Calcium 8.2 mg/dL (8.6-10.8); Magnesium 1.5 mg/dL (1.6-2.6); Phosphorous 2.5 mg/dL (2.3-4.7)
[2017-06-19] MEDS: Pantoprazole 40 MG VIAL IVP SCH ×2 (06:12→21:48)
[2017-06-19] MEDS ORDERED: Potassium Chloride 40 MEQ, Lidocaine 1% 2 ML in D5% in Water 500 ML IVPB ONE (08:22)
[2017-06-19] MEDS ORDERED: Magnesium Sulfate 1 GM in 0.9 % Sodium Chloride 50 ML IVPB ONE (08:22)
[2017-06-19] MEDS: cefTRIAXone 1,000 MG in Water for inj. (sterile) 10 ML IVP SCH (09:28)
--- NOTE | 2017-06-19 10:24 | Internal Med Progress Note ---
Date of Encounter: 06/19/17 Time of Encounter: : - Assessment and plan (1) Upper GI bleeding Current Visit: Yes Status: Acute Assessment and plan: -EGD showed mild bleeding/oozing of LA grade D reflux esophagitis (06/17/17) -Noted to have recurrent drop in H&H, requiring two more units of PRBC transfusion (06/18/17) -GI on board and consultation appreciated -Scheduled for Push Enteroscopy today (06/19/17) -Repeat H&H within acceptable range -Continue to closely monitor (2) Acute blood loss anemia Current Visit: No Status: Acute Assessment and plan: as listed above (3) Esophagitis Current Visit: Yes Status: Acute Assessment and plan: -s/p EGD showing LA grade D esophagitis with mild bleeding/oozing; hiatal hernia (06/17/17) -carafate 4x QID AC and Protonix 40mg IV BID (4) UTI (urinary tract infection) Current Visit: Yes Status: Acute Assessment and plan: -urine cultures reported Aerococcus Urinae -Pt clinically improving on IV Ceftriaxone (Day 3), will continue Qualifiers: Urinary tract infection type: site unspecified Hematuria presence: without hematuria Qualified Code(s): N39.0 - Urinary tract infection, site not specified (5) Diabetes mellitus type 2 in obese Current Visit: Yes Status: Acute Assessment and plan: -sliding scale insulin, low corrective dose -monitor fingerstick and blood glucose -ADA diet (6) CKD (chronic kidney disease) stage 3, GFR 30-59 ml/min Current Visit: Yes Status: Chronic Assessment and plan: -renal function improved from previous day and appears to be at baseline -will continue to monitor creatinine (7) Hypertension Current Visit: No Status: Chronic Assessment and plan: BP within acceptable range continue home medications Qualifiers: Hypertension type: essential hypertension Qualified Code(s): I10 - Essential (primary) hypertension (8) Electrolyte abnormality Current Visit: Yes Status: Acute Assessment and plan: Hypokalemia and Hypomagnesemia K and Mg supplemented continue to monitor electrolytes and replace as needed (9) DVT prophylaxis Current Visit: Yes Status: Acute Assessment and plan: -no chemical prophylaxis d/t blood loss anemia -SCDs (10) Morbid obesity with BMI of 45.0-49.9, adult Current Visit: Yes Status: Acute - Subjective Interval history: Patient seen and examined at bedside. Resting comfortably in bed and denies any discomfort at this time. Denies any acute bleeding episodes No overnight events reported - Constitutional Vitals: Temp Pulse Resp BP Pulse Ox 98.6 F 53 15 113/66 100 06/19/17 07:06 06/19/17 07:06 06/19/17 07:06 06/19/17 07:06 06/19/17 07:06 General appearance: Present: A&O X 3, morbidly obese, no acute distress, answers questions appropriately - Head Head exam: Present: atraumatic, normocephalic - Eye Eye exam: Present: conjuntiva pink, sclera anicteric - Respiratory Respiratory exam: Present: CTAB. Absent: accessory muscle use, rales, rhonchi, wheezes - Cardiovascular Cardiovascular exam: Present: RRR, +S1, +S2. Absent: diastolic murmur, gallop, rubs, systolic murmur - GI/Abdominal GI/Abdominal exam: Present: normal bowel sounds, soft, no peritoneal signs. Absent: distended, tenderness - Extremities Exam Extremities exam: Present: warm, radial pulses palpable and symmetrical. Absent : calf tenderness - Neurological Exam Neurological exam: Present: alert, oriented X3 - Psychiatric Psychiatric exam: Present: normal affect, normal mood Internal Medicine: Result - Labs CBC & Chem 7: 06/19/17 04:44 06/19/17 04:44 Labs: Short CBC 06/18/17 06/19/17 Range/Units 19:16 04:44 WBC 5.6 (4.3-11.1) K/mcL Hgb 9.6 L D 9.1 L (11.5-15.4) g/dL Hct 29.6 L 28.2 L (35.3-44.9) % Plt Count 113 L (140-400) K/mcL Neutrophils # 3.2 (1.6-8.9) K/mcL BMP 06/19/17 04:44 Sodium 138 Potassium 3.0 L Chloride 105 Carbon Dioxide 24 BUN 35 H D Creatinine 1.14 H Glucose 103 H Calcium 8.2 L - VTE Documentation of Mechanical Device: Intermittent pneumatic compression device Consult Discharge Plan - Plan Referrals: Ernst Mojica MD [Primary Care Provider] -
[2017-06-19] MEDS: Budesonide/Formoterol 160/4.5 MDI IH SCH ×2 (10:50→22:22)
--- NOTE | 2017-06-19 17:56 | Anesthesia Evaluation PreOp ---
Date of Encounter: 06/19/17 Time of Encounter: 17:53 - Past History Planned Operation: EGD/Colonoscopy Cardiac History: Denies any Significant Hx (EGD Cardiac History: CHF, HTN, Hyperlipidemia, Arrhythmia (a-fib) Pulmonary History: Denies Any Significant HX GARMENT TURNER History: Denies Any Significant HX Other Medical History: Renal (CKD 3), GERD, Other (glaucoma, Upper GI bleed) Anesthesia History: No Prior Anesthetic Complications, Past Anesthesia (serenity, TKA, EGD/c-scope 04/14) : No Alcohol Use: none Drug use: none), CHF, HTN, Hyperlipidemia, Arrhythmia Pulmonary History: Denies Any Significant HX GARMENT TURNER History: Denies Any Significant HX Other Medical History: Renal (StageIII CRD), GERD, Other (glaucoma, Upper GI bleed) Anesthesia History: No Prior Anesthetic Complications (`), Past Anesthesia ( serenity, TKA, EGD/c-scope 04/14) : No Alcohol Use: none Drug use: none Medications and Allergies Sertraline [Zoloft] 25 mg PO DAILY 05/24/15 [History] LORazepam [Ativan] 0.5 mg PO QID 12/21/15 [History] Cholecalciferol (D-3) [Vitamin D] 50,000 unit PO QWEEK 02/25/16 [History] Latanoprost [Xalatan] 1 drop BOTH EYES HS 02/25/16 [History] Albuterol Sulfate [Proair Respiclick] 2 puff IH Q4H PRN 05/16/16 [History] Rosuvastatin Calcium [Crestor] 10 mg PO DAILY 05/16/16 [History] Ipratropium/Albuterol Neb [Duoneb] 3 ml IH Q6HR 07/27/16 [History] Loratadine [Allergy Relief] 10 mg PO DAILY 01/14/17 [History] Sennosides/Docusate Sodium [Senna-Docusate Sodium Tablet] 2 each PO DAILY PRN [History] Budesonide/Formoterol 160/4.5 [Symbicort 160/4.5] 2 puff IH BIDR 04/15/17 [ History] HYDROcodone/Acet 7.5/325 mg [[place] 7.5-325 mg] 1 tab PO Q6H PRN 04/15/17 [ History] Insulin Degludec [Tresiba Flextouch U-200] 10 unit SQ DAILY 04/15/17 [History] Pregabalin [Lyrica] 75 mg PO BID 04/15/17 [History] hydrALAZINE [HydrALAZINE] 25 mg PO BID 04/15/17 [History] metOLazone [Zaroxolyn] 5 mg PO DAILY 04/15/17 [History] Aspirin [Lo-Dose Aspirin EC] 81 mg PO DAILY 04/16/17 [History] Calcium Carbonate/Vitamin D3 [Calcium 500-Vit D3 200 Caplet] 1 tab PO DAILY [History] Esomeprazole Magnesium [Nexium] 40 mg PO DAILY 04/16/17 [History] Glimepiride [Amaryl] 1 mg PO DAILY 04/16/17 [History] Oxybutynin [Ditropan] 5 mg PO DAILY 04/16/17 [History] Pantoprazole Sodium 40 mg PO DAILY 04/16/17 [History] Potassium Chloride [Klor-Con 10] 10 meq PO DAILY 04/16/17 [History] Primidone [Mysoline] 50 mg PO DAILY 04/16/17 [History] 3 Allergy/AdvReac Type Severity Reaction Status Date / Time azithromycin [From Zithromax] Allergy Hives Verified 06/16/17 19:20 Erythromycin Base Allergy Hives Verified 06/16/17 19:20 levofloxacin Allergy See Verified 06/16/17 19:20 Comments lisinopril Allergy See Verified 06/16/17 19:20 Comments sulfamethoxazole Allergy Hives Verified 06/16/17 19:20 [From Bactrim] trazodone Allergy Hives Verified 06/16/17 19:20 trimethoprim [From Bactrim] Allergy Hives Verified 06/16/17 19:20 tuberculin,PPD,multi-puncture Allergy See Verified 06/16/17 19:20 Comments Pneumococcal Vaccine AdvReac Hallucinati Verified 06/16/17 19:20 ng - Meds/Allergy Pre-op Review Medications Reviewed: Yes Allergies Reviewed: Yes Beta Blockers on Current Med List: No Anesthesia Results - Labs 06/19/17 04:44 06/19/17 04:44 - Imaging EKG: image reviewed (SINUS RHYTHM WITH FREQUENT VENTRICULAR PREMATURE COMPLEXES LEFT AXIS DEVIATION MINIMAL ST DEPRESSION) Anesthesia Exam O2 Sat Weight 110.9 kg O2 Sat by Pulse Oximetry 97 O2 Sat by Pulse Oximetry 99 O2 Sat by Pulse Oximetry 100 O2 Sat by Pulse Oximetry 98 O2 Sat by Pulse Oximetry 98 O2 Sat by Pulse Oximetry 97 O2 Sat by Pulse Oximetry 99 O2 Sat by Pulse Oximetry 99 Vital Signs Temp Pulse Resp BP Pulse Ox 97.3 F L 80 17 94/53 100 06/17/17 02:10 06/17/17 02:10 06/17/17 02:10 06/17/17 02:10 06/17/17 02:10 Height: 5'1'' Weight: 244# NPO (# of Hours): > 8 hrs Pain Scale: 0 Pain Scale Used: Numeric (1 - 10) - HEENT Pupil (Motor): Pupils equal, EOMI Mallampati: II Teeth: Edentulous Oral Opening: Greater than 3 - GARMENT TURNER LOC: Oriented GARMENT TURNER Motor: Normal RUE, Normal LUE, Normal RLE, Normal LLE, Normal Face GARMENT TURNER Sensory: Normal: RUE, LUE, RLE, LLE, Face - Cardiac Rhythm: Regular Murmur: None JVD: No Carotid Bruit: No - Pulmonary Breath Sounds: bilateral Clear Respiratory Effort: Symmetrical Anesthesia Assess/Plan ASA Score: 3 Modified [place] Scale for Level of Consciousness: Cooperative, oriented, and tranquil Anesthetic Plan: MAC Autologous Blood: Yes Monitoring Plan: Standard Monitors Recovery Plan: PACU
[2017-06-19] MEDS ORDERED: 0.9 % Sodium Chloride 1,000 ML IVC SCH (18:15)
[2017-06-19] MEDS ORDERED: Propofol 500 MG/50 ML INFUS..BTL ONE (19:15)
[2017-06-19] MEDS ORDERED: Lidocaine -MPF 2% 2 ML VIAL ONE (19:15)
[2017-06-19] MEDS ORDERED: *HR* Phenylephrine 10 MG/ML VIAL ONE (19:30)
--- NOTE | 2017-06-19 20:11 | Anesthesia Evaluation Post Op ---
Date of Encounter: 06/19/17 Time of Encounter: 20:10 - Vital Signs Vital Signs: BP 129/75 HR 63 O2 98% RR 17 - Lungs Lungs: Clear Ascult./Percussion - Airway Airway: Non-obstructed - Cardiovascular Regular Rate - Mental Status Mental Status: Baseline Status - Nausea Vomiting Nausea Vomiting: Not Present - Hydration Hydration: NPO - Discharge PostOp Status: Transfer Patient to floor
[2017-06-19] MEDS ORDERED: BENZOCAINE/MENTHOL 1 LOZENGE (BAG OF 6) MM PRN ×2 (21:44→23:15)
[2017-06-19] MEDS: Acetaminophen 325 MG TABLET PO PRN (21:48)
[2017-06-20] MEDS: Insulin LISPRO 300 UNITS/3 ML VIAL SQ SCH ×2 (01:25→05:46)
[2017-06-20] MEDS: Pantoprazole 40 MG VIAL IVP SCH (05:46)
[2017-06-20 07:04] VITALS: BP 154/69
[2017-06-20] MEDS: Budesonide/Formoterol 160/4.5 MDI IH SCH (07:58)
[2017-06-20] MEDS: cefTRIAXone 1,000 MG in Water for inj. (sterile) 10 ML IVP SCH (09:17)
--- NOTE | 2017-06-20 09:25 | Internal Med Progress Note ---
<Janice Walton - Last Filed: 06/20/17 14:47> Date of Encounter: 06/20/17 Time of Encounter: 09:23 - Assessment and plan (1) Upper GI bleeding Status: Resolved Assessment and plan: -EGD showed mild bleeding/oozing of LA grade D reflux esophagitis (06/17/17) -Noted to have recurrent drop in H&H, requiring two more units of PRBC transfusion (06/18/17) -Small bowel enteroscopy showed reflux esophagitis (LA Grade C) without bleeding and area of mild mucosal change in jejunum was cauterized (06/19/17) -colonoscopy showed diverticula in sigmoid and ascending colon (06/19/17) -No new episodes coffee-ground emesis or bloody stools -GI on board and recommendations appreciated (2) UTI (urinary tract infection) Status: Acute Assessment and plan: -urine cultures reported Aerococcus Urinae -Pt clinically improving on IV Ceftriaxone (Day 4) Qualifiers: Urinary tract infection type: site unspecified Hematuria presence: without hematuria Qualified Code(s): N39.0 - Urinary tract infection, site not specified (3) Esophagitis Status: Chronic Assessment and plan: -EGD showing LA grade D esophagitis with mild bleeding/oozing; hiatal hernia () -Small bowel enteroscopy showed LA Grade C reflux esophagitis without bleed () -carafate 4x QID AC and Protonix 40mg IV BID (4) Anemia Status: Chronic Assessment and plan: -initially presented with Hgb 5.5, coffee ground emesis, dark stool -EGD findings as above -last pRBC transfusion: 06/18/17 2 units; total pRBC transfusions: 4 Qualifiers: Anemia type: iron deficiency Iron deficiency anemia type: chronic blood loss Qualified Code(s): D50.0 - Iron deficiency anemia secondary to blood loss (chronic) (5) CKD (chronic kidney disease) stage 3, GFR 30-59 ml/min Status: Chronic Assessment and plan: -renal appears to be at baseline -will continue to monitor creatinine (6) Hiatal hernia Status: Chronic Assessment and plan: -seen on EGD, as described above (7) DVT prophylaxis Status: Acute Assessment and plan: -no chemical prophylaxis d/t blood loss anemia -SCDs (8) Diabetes mellitus type 2 in obese Status: Chronic Assessment and plan: -sliding scale insulin, low corrective dose -monitor fingerstick and blood glucose -ADA diet - Subjective Interval history: Patient seen and examined this morning at bedside; she is sitting comfortably in bed and in no acute distress. Patient feels ok today and is without complaints this morning. She denies chest pain, dyspnea, abdominal pain, nausea , coffee ground emesis, melena, hematochezia. - Constitutional Vitals: Temp Pulse Resp BP Pulse Ox 98.2 F 69 17 154/69 99 06/20/17 07:01 06/20/17 07:01 06/20/17 07:59 06/20/17 07:01 06/20/17 07:59 General appearance: Present: A&O X 3, morbidly obese, no acute distress, answers questions appropriately Internal Medicine: Result - Labs CBC & Chem 7: 06/20/17 10:44 06/20/17 10:44 - VTE Documentation of Mechanical Device: Intermittent pneumatic compression device Consult Discharge Plan - Plan Instructions: Sucralfate (By mouth), Cefdinir (By mouth), Pantoprazole (By mouth), Urinary Tract Infection in Women (DC) Additional Instructions: Continue home medications Take pantoprazole twice a day Take carafate 4 times a day before meals Take last dose of antibiotic tomorrow Follow up with PCP within 1 week Follow up with Dr. Bria gillespie 1 month Return for new or worsening symptoms Referrals: Ernst Mojica MD [Primary Care Provider] - (web request sent on 06/20/17. If you do not hear from your PCP by Saturday with an appointment date and time please call the office) Ángel Fraser MD [Partnered Physician] - (1 month- web request sent- if you do not hear anything from the office please call and schedule) Prescriptions: Cefdinir [Omnicef] 300 mg PO BID #2 capsule Pantoprazole Sodium 40 mg PO BID #60 tablet.dr [place] [Carafate] 1 gm PO DA #1 bottle <Ranjan Mccain - Last Filed: 06/20/17 15:06> Date of Encounter: 06/20/17 - Constitutional Vitals: Temp Pulse Resp BP Pulse Ox 98.2 F 69 17 154/69 99 06/20/17 07:01 06/20/17 07:01 06/20/17 07:59 06/20/17 07:01 06/20/17 07:59 Internal Medicine: Result - Labs CBC & Chem 7: 06/20/17 10:44 06/20/17 10:44 Labs: Short CBC 06/20/17 Range/Units 10:44 Hgb 9.7 L (11.5-15.4) g/dL Hct 30.5 L (35.3-44.9) % BMP 06/20/17 10:44 Sodium 138 Potassium 3.4 L Chloride 106 Carbon Dioxide 23 BUN 17 D Creatinine 0.95 Glucose 117 H Calcium 8.4 L - Attending Attestation I independently interviewed and examined this pt. I agree with the findings, assessment and plan of Dr. Cuello, Pediatric Np. Hb remains stable. Antic dc today.
[2017-06-20 11:03] LABS: Hematocrit 30.5 % (35.3-44.9); Hemoglobin 9.7 g/dL (11.5-15.4)
[2017-06-20 11:16] LABS: BUN/Creatinine Ratio 18 (6-26); Calcium 8.4 mg/dL (8.6-10.8); Carbon Dioxide 23 mEq/L (19-29); Chloride 106 mEq/L (98-109); Glucose 117 mg/dL (70-99); Magnesium 1.2 mg/dL (1.6-2.6); Osmolality,Calculated 289 (280-300); Potassium 3.4 mEq/L (3.5-4.5); Sodium 138 mEq/L (136-145); eGFR For African Americans > 60 (> 60); eGFR For Non-African Americans 56 (> 60)
[2017-06-20 11:18] LABS: Blood Urea Nitrogen 17 mg/dL (7-20)
--- NOTE | 2017-06-20 13:11 | Discharge Summary ---
<Janice Walton - Last Filed: 06/20/17 14:46> Date of Encounter: 06/20/17 Time of Encounter: 13:08 - Discharge Diagnosis (1) Upper GI bleeding Priority: Primary Status: Resolved (2) UTI (urinary tract infection) Priority: Primary Status: Acute Qualifiers: Urinary tract infection type: site unspecified Hematuria presence: without hematuria Qualified Code(s): N39.0 - Urinary tract infection, site not specified (3) Esophagitis Priority: Primary Status: Chronic (4) Anemia Priority: Secondary Status: Chronic Qualifiers: Anemia type: iron deficiency Iron deficiency anemia type: chronic blood loss Qualified Code(s): D50.0 - Iron deficiency anemia secondary to blood loss (chronic) (5) CKD (chronic kidney disease) stage 3, GFR 30-59 ml/min Priority: Secondary Status: Chronic (6) Hiatal hernia Priority: Secondary Status: Chronic (8) Diabetes mellitus type 2 in obese Priority: Secondary Status: Chronic - Discharge Medications Prescriptions: Cefdinir [Omnicef] 300 mg PO BID #2 capsule Pantoprazole Sodium 40 mg PO BID #60 tablet. Sucralfate [Carafate] 1 gm PO QIDAC #1 bottle Home Medications: Sertraline [Zoloft] 25 mg PO DAILY 05/24/15 [History] LORazepam [Ativan] 0.5 mg PO QID 12/21/15 [History] Cholecalciferol (D-3) [Vitamin D] 50,000 unit PO QWEEK 02/25/16 [History] Latanoprost [Xalatan] 1 drop BOTH EYES HS 02/25/16 [History] Albuterol Sulfate [Proair Respiclick] 2 puff IH Q4H PRN 05/16/16 [History] Rosuvastatin Calcium [Crestor] 10 mg PO DAILY 05/16/16 [History] Ipratropium/Albuterol Neb [Duoneb] 3 ml IH Q6HR 07/27/16 [History] Loratadine [Allergy Relief] 10 mg PO DAILY 01/14/17 [History] Sennosides/Docusate Sodium [Senna-Docusate Sodium Tablet] 2 each PO DAILY PRN [History] Budesonide/Formoterol 160/4.5 [Symbicort 160/4.5] 2 puff IH BIDR 04/15/17 [ History] HYDROcodone/Acet 7.5/325 mg [[place] 7.5-325 mg] 1 tab PO Q6H PRN 04/15/17 [ History] Insulin Degludec [Tresiba Flextouch U-200] 10 unit SQ DAILY 04/15/17 [History] Pregabalin [Lyrica] 75 mg PO BID 04/15/17 [History] hydrALAZINE [HydrALAZINE] 25 mg PO BID 04/15/17 [History] metOLazone [Zaroxolyn] 5 mg PO DAILY 04/15/17 [History] Aspirin [Lo-Dose Aspirin EC] 81 mg PO DAILY 04/16/17 [History] Calcium Carbonate/Vitamin D3 [Calcium 500-Vit D3 200 Caplet] 1 tab PO DAILY [History] Glimepiride [Amaryl] 1 mg PO DAILY 04/16/17 [History] Oxybutynin [Ditropan] 5 mg PO DAILY 04/16/17 [History] Potassium Chloride [Klor-Con 10] 10 meq PO DAILY 04/16/17 [History] Primidone [Mysoline] 50 mg PO DAILY 04/16/17 [History] Cefdinir [Omnicef] 300 mg PO BID #2 capsule 06/20/17 [Rx] Pantoprazole Sodium 40 mg PO BID #60 tablet. 06/20/17 [Rx] Sucralfate [Carafate] 1 gm PO QIDAC #1 bottle 06/20/17 [Rx] Allergies/Adverse Reactions: 3 Allergy/AdvReac Type Severity Reaction Status Date / Time azithromycin [From Zithromax] Allergy Hives Verified 06/16/17 19:20 Erythromycin Base Allergy Hives Verified 06/16/17 19:20 levofloxacin Allergy See Verified 06/16/17 19:20 Comments lisinopril Allergy See Verified 06/16/17 19:20 Comments sulfamethoxazole Allergy Hives Verified 06/16/17 19:20 [From Bactrim] trazodone Allergy Hives Verified 06/16/17 19:20 trimethoprim [From Bactrim] Allergy Hives Verified 06/16/17 19:20 tuberculin,PPD,multi-puncture Allergy See Verified 06/16/17 19:20 Comments Pneumococcal Vaccine AdvReac Hallucinati Verified 06/16/17 19:20 ng Date of admission: 06/17/17 02:39 Primary care physician: Ernst Mojica MD Consults: 06/17/17 03:59 Consult to Gastroenterology [CONS] Routine Consulting Provider: [facility] Reason for Consult: Anemia, black stool Call Completed: Yes 06/19/17 09:37 Consult to Occupational Therapy [CONS] Routine Comment: Evaluate, develop and implement POC Reason for Consult: eval for ECF Consult to Physical Therapy [CONS] Routine Comment: Evaluate, develop and implement POC Reason for Consult: eval for ECF Discharging clinician: Janice Walton Anticipated date of discharge: 06/20/17 - Patient Status Disposition: Home Health Service Condition: Fair Functional capacity at discharge: uses cane/walker Overall status at discharge: patient is progressing back to baseline - Discharge Instructions Instructions: Sucralfate (By mouth), Cefdinir (By mouth), Pantoprazole (By mouth), Urinary Tract Infection in Women (DC) Follow Up With: Ernst Mojica MD [Primary Care Provider] - (web request sent on 06/20/17. If you do not hear from your PCP by Saturday with an appointment date and time please call the office) Ángel Fraser MD [Partnered Physician] - (1 month- web request sent- if you do not hear anything from the office please call and schedule) Additional Instructions: Continue home medications Take pantoprazole twice a day Take carafate 4 times a day before meals Take last dose of antibiotic tomorrow Follow up with PCP within 1 week Follow up with Dr. Bria gillespie 1 month Return for new or worsening symptoms - Diet and Activity Activity: increase activity as tolerated Diet: diabetic diet Hospital course: Ms. Be is a 82 year old female - Time Spent with Patient Total time spent providing and/or coordinating discharge services: - Constitutional Vitals: Temp Pulse Resp BP Pulse Ox 98.2 F 69 17 154/69 99 06/20/17 07:01 06/20/17 07:01 06/20/17 07:59 06/20/17 07:01 06/20/17 07:59 General appearance: Present: A&O X 3, morbidly obese, no acute distress, answers questions appropriately - VTE Documentation of Mechanical Device: Intermittent pneumatic compression device <Mccain,Ranjan Ivon - Last Filed: 06/20/17 15:07> Date of Encounter: 06/20/17 Date of admission: 06/17/17 02:39 Primary care physician: Ernst Mojica MD Consults: 06/17/17 03:59 Consult to Gastroenterology [CONS] Routine Consulting Provider: [facility] Marii Reason for Consult: Anemia, black stool Call Completed: Yes 06/19/17 09:37 Consult to Occupational Therapy [CONS] Routine Comment: Evaluate, develop and implement POC Reason for Consult: eval for ECF Consult to Physical Therapy [CONS] Routine Comment: Evaluate, develop and implement POC Reason for Consult: eval for ECF Hospital course: Ms. Be is a 82 year old female - Time Spent with Patient Total time spent providing and/or coordinating discharge services: - Constitutional Vitals: Temp Pulse Resp BP Pulse Ox 98.2 F 69 17 154/69 99 06/20/17 07:01 06/20/17 07:01 06/20/17 07:59 06/20/17 07:01 06/20/17 07:59 - Attending Attestation I independently interviewed and examined this pt. I agree qith the findings, assessment and paln of Dr. Cuello, [employer] [facility]. Hb stable. No evidence further bleeding. Continue tx for espohagitis. Stable for dc.
--- NOTE | 2017-06-20 13:53 | Physician Discharge Referral ---
Home Health/Hosp Referral Info Transfer to: Home Health Provider in Charge Post Discharge: PCP - Diagnosis (1) Upper GI bleeding Priority: Primary Status: Resolved (2) UTI (urinary tract infection) Priority: Primary Status: Acute (3) Esophagitis Priority: Primary Status: Chronic (4) Anemia Priority: Secondary Status: Chronic (5) CKD (chronic kidney disease) stage 3, GFR 30-59 ml/min Priority: Secondary Status: Chronic (6) Hiatal hernia Priority: Secondary Status: Chronic (7) Diabetes mellitus type 2 in obese Priority: Secondary Status: Chronic - Respiratory Orders None Smoking Cessation: Smoking cessation has been advised. For more information, call the [place] Tobacco Quit Line at 8-582-UXYW-NOW. - Diet/Nutrition Diet/Nutrition Orders: Renal, Cardiac - Activity Activity Orders: Up ad sudhakar - Services Needed Following services are medically necessary services: Home Health Aide - Transfer Medications Prescriptions: Cefdinir [Omnicef] 300 mg PO BID #2 capsule Pantoprazole Sodium 40 mg PO BID #60 tablet. Sucralfate [Carafate] 1 gm PO QIDAC #1 bottle Home Medications: Sertraline [Zoloft] 25 mg PO DAILY 05/24/15 [History] LORazepam [Ativan] 0.5 mg PO QID 12/21/15 [History] Cholecalciferol (D-3) [Vitamin D] 50,000 unit PO QWEEK 02/25/16 [History] Latanoprost [Xalatan] 1 drop BOTH EYES HS 02/25/16 [History] Albuterol Sulfate [Proair Respiclick] 2 puff IH Q4H PRN 05/16/16 [History] Rosuvastatin Calcium [Crestor] 10 mg PO DAILY 05/16/16 [History] Ipratropium/Albuterol Neb [Duoneb] 3 ml IH Q6HR 07/27/16 [History] Loratadine [Allergy Relief] 10 mg PO DAILY 01/14/17 [History] Sennosides/Docusate Sodium [Senna-Docusate Sodium Tablet] 2 each PO DAILY PRN [History] Budesonide/Formoterol 160/4.5 [Symbicort 160/4.5] 2 puff IH BIDR 04/15/17 [ History] HYDROcodone/Acet 7.5/325 mg [[place] 7.5-325 mg] 1 tab PO Q6H PRN 04/15/17 [ History] Insulin Degludec [Tresiba Flextouch U-200] 10 unit SQ DAILY 04/15/17 [History] Pregabalin [Lyrica] 75 mg PO BID 04/15/17 [History] hydrALAZINE [HydrALAZINE] 25 mg PO BID 04/15/17 [History] metOLazone [Zaroxolyn] 5 mg PO DAILY 04/15/17 [History] Aspirin [Lo-Dose Aspirin EC] 81 mg PO DAILY 04/16/17 [History] Calcium Carbonate/Vitamin D3 [Calcium 500-Vit D3 200 Caplet] 1 tab PO DAILY [History] Glimepiride [Amaryl] 1 mg PO DAILY 04/16/17 [History] Oxybutynin [Ditropan] 5 mg PO DAILY 04/16/17 [History] Potassium Chloride [Klor-Con 10] 10 meq PO DAILY 04/16/17 [History] Primidone [Mysoline] 50 mg PO DAILY 04/16/17 [History] Cefdinir [Omnicef] 300 mg PO BID #2 capsule 06/20/17 [Rx] Pantoprazole Sodium 40 mg PO BID #60 tablet. 06/20/17 [Rx] Sucralfate [Carafate] 1 gm PO QIDAC #1 bottle 06/20/17 [Rx] Allergies/Adverse Reactions: 3 Allergy/AdvReac Type Severity Reaction Status Date / Time azithromycin [From Zithromax] Allergy Hives Verified 06/16/17 19:20 Erythromycin Base Allergy Hives Verified 06/16/17 19:20 levofloxacin Allergy See Verified 06/16/17 19:20 Comments lisinopril Allergy See Verified 06/16/17 19:20 Comments sulfamethoxazole Allergy Hives Verified 06/16/17 19:20 [From Bactrim] trazodone Allergy Hives Verified 06/16/17 19:20 trimethoprim [From Bactrim] Allergy Hives Verified 06/16/17 19:20 tuberculin,PPD,multi-puncture Allergy See Verified 06/16/17 19:20 Comments Pneumococcal Vaccine AdvReac Hallucinati Verified 06/16/17 19:20 ng Certification: Further, I certify that my clinical findings support that this patient is homebound (i.e. absences from home require considerable and taxing effort and are for medical reasons or voodoo services or infrequently or short duration when for other reasons) because: Homebound Reason: Patient requires assistance of a person or device to safely leave home Attestation: My signature below is to certify that this patient is under my care and that I, or nurse practitioner, or a physician's clinical nursing assistant working with me, has a face-to -face encounter with this patient.
[2017-06-20] MEDS: Acetaminophen 325 MG TABLET PO PRN (13:57)
== END 2017-06-20 14:16 | disposition home health service (06) | DRG 378 ==
LOC: 2ANU → SUATTDRO 02:39
PROVIDERS: ADMIT Internal Medicine; ATTEND Internal Medicine